=== PATIENT | male | born 1975 | race Caucasian/White ===

== ENCOUNTER 2017-06-05 12:40 | Inpatient (IN) | payer OTHER ==
--- NOTE | 2017-06-05 12:46 | PDOC ---
History of Present Illness - General History Source: Patient Exam Limitations: No Limitations - History of Present Illness Initial Comments: 06/05/17 13:27 The patient is a 41 year old male, with a significant past medical history of asthma, anemia, HTN, IDDM, HLD, depression, gastroparesis, and prostatic hypertrophy who presents to the emergency department with SOB, nausea, vomiting , abdominal pain since this morning. The patient describes his abdominal pain as diffuse and constant. The patient also has a sacral pain that has been constant for months, history of chronic sacral wound.. These symptoms are consistent with previous episodes of DKA. He denies any recent fevers, chills, headache or dizziness.He denies any recent chest pain.. He denies any recent dysuria, frequency, urgency or hematuria. Allergies: NKA Past surgical history: Appendectomy. Social History: Nonsmoker. Denies EtOH use and recreational drug use. <Mitul Zelaya - Last Filed: 06/05/17 13:27> <Danielle Calzada - Last Filed: 06/09/17 12:18> - General Stated Complaint: SOB/DIABETIC Time Seen by Provider: 06/05/17 12:46 Past History <Mitul Zelaya - Last Filed: 06/05/17 13:27> - Past Medical History Anemia: Yes Asthma: No Cancer: No Cardiac Disorders: Yes (HEART MURMUR A CHILD; NO MEDS) CVA: No COPD: No CHF: No Dementia: No Diabetes: Yes (IDDM,insulin pump) GI Disorders: Yes (gastroparesis) Disorders: Yes (indweling urinary catherer, prostatic hypertrophy) HTN: Yes Hypercholesterolemia: Yes Liver Disease: No Psychiatric Problems: Yes (depression) Seizures: No Thyroid Disease: Yes - Surgical History Abdominal Surgery: No Appendectomy: Yes (age 27) Cardiac Surgery: No Cholecystectomy: No Lung Surgery: No Neurologic Surgery: No Orthopedic Surgery: Yes (Trigger finger release, arthroscopy for bone spur L shoulder) - Immunization History Immunization Up to Date: Yes - Suicide/Smoking/Psychosocial Hx Smoking Status: No Smoking History: Never smoked Have you smoked in the past 12 months: No Number of Cigarettes Smoked Daily: 0 Cigars Per Day: 0 Hx Alcohol Use: No Drug/Substance Use Hx: No Substance Use Type: None Hx Substance Use Treatment: No <Danielle Calzada - Last Filed: 06/09/17 12:18> - Past Medical History Allergies/Adverse Reactions: Allergies Allergy/AdvReac Type Severity Reaction Status Date / Time quetiapine fumarate Allergy Unknown hypotension Verified 05/27/16 22:05 [From Seroquel] Home Medications: Ambulatory Orders Insulin Pump Syringe, 3 ml [Paradigm] 1 each MC ASDIR 10/04/13 Pregabalin [Lyrica -] 100 mg PO TID 09/22/14 Levothyroxine [Synthroid -] 112 mcg PO DAILY 05/28/16 Metoclopramide HCl [Reglan -] 10 mg PO BID #60 tablet 05/28/16 Buprenorphine HCl/Naloxone HCl [Suboxone 12 mg-3 mg Sl Film] 1 each SL PRN 06/05 Lubiprostone [Amitiza] 24 mcg PO DAILY 06/05/17 Ondansetron [Ondansetron Odt] 8 mg PO PRN 06/05/17 Sennosides [Senna] 8.6 mg PO PRN 06/05/17 Sertraline HCl 50 mg PO DAILY 06/05/17 Tizanidine HCl 4 mg PO DAILY 06/05/17 Review of Systems - Review of Systems Able to Perform ROS?: Yes Comments:: 06/05/17 13:27 GENERAL/CONSTITUTIONAL: No fever or chills. No weakness. HEAD, EYES, EARS, NOSE AND THROAT: No change in vision. No ear pain or discharge. No sore throat. CARDIOVASCULAR: No chest pain +shortness of breath. RESPIRATORY: No cough, wheezing, or hemoptysis. GASTROINTESTINAL: +nausea, vomiting, abdominal pain. No diarrhea or constipation. GENITOURINARY: No dysuria, frequency, or change in urination. MUSCULOSKELETAL: No joint or muscle swelling or pain. No neck or back pain. SKIN: No rash NEUROLOGIC: No headache, vertigo, loss of consciousness, or change in strength/ sensation. ENDOCRINE: No increased thirst. No abnormal weight change. HEMATOLOGIC/LYMPHATIC: No anemia, easy bleeding, or history of blood clots. ALLERGIC/IMMUNOLOGIC: No hives or skin allergy. <Mitul Zelaya - Last Filed: 06/05/17 13:27> *Physical Exam - Vital Signs Last Vital Signs Temp Pulse Resp BP Pulse Ox 97.9 F 100 H 28 H 135/91 100 06/05/17 13:07 06/05/17 13:07 06/05/17 13:07 06/05/17 13:07 06/05/17 13:07 - Physical Exam Comments: 06/05/17 13:27 GENERAL: Awake, alert, and fully oriented, uncomfortable actively vomiting. HEAD: No signs of trauma EYES: PERRLA, EOMI, sclera anicteric, conjunctiva clear ENT: Auricles normal inspection, hearing grossly normal, nares patent, oropharynx clear without exudates. Moist mucosa NECK: Normal ROM, supple, no lymphadenopathy, JVD, or masses LUNGS: Breath sounds equal, clear to auscultation bilaterally. No wheezes, and no crackles HEART: Regular rate and rhythm, normal S1 and S2, no murmurs, rubs or gallops ABDOMEN: Soft, Diffuse abdominal tenderness , normoactive bowel sounds. No guarding, no rebound. No masses EXTREMITIES: Normal range of motion, no edema. No clubbing or cyanosis. No cords, erythema, or tenderness NEUROLOGICAL: Cranial nerves II through XII grossly intact. Normal speech, normal gait SKIN: 1 cm area of fluctuance over the sacrum. <Mitul Zelaya - Last Filed: 06/05/17 13:27> ED Treatment Course - LABORATORY CBC & Chemistry Diagram: 06/05/17 13:00 06/05/17 13:00 - ADDITIONAL ORDERS Additional order review: Laboratory Results 06/05/17 06/05/17 13:01 13:00 VBG pH 7.51 H POC VBG pCO2 25.9 L POC VBG pO2 39.0 Mixed VBG HCO3 20.4 POC Glucometer [id number] 06/05/17 06/05/17 13:01 13:00 RBC 5.15 MCV 87.5 MCHC 32.5 RDW 13.6 MPV 10.6 Neutrophils % 66.8 D Lymphocytes % 21.2 D Monocytes % 7.2 Eosinophils % 3.6 Basophils % 1.2 POC Glucometer [phone] - Medications Given in the ED: ED Medications Discontinued Medications Generic Name Dose Route Start Last Admin Trade Name Freq PRN Reason Stop Dose Admin Morphine Sulfate 6 mg 06/05/17 12:52 06/05/17 13:06 Morphine Injection - IVPUSH 12/31/17 12:53 6 mg ONCE ONE Administration <Mitul Zelaya - Last Filed: 06/05/17 13:27> - LABORATORY CBC & Chemistry Diagram: 06/08/17 06:00 06/09/17 09:10 <Danielle Calzada - Last Filed: 06/09/17 12:18> Medical Decision Making - Medical Decision Making 06/05/17 15:19 Pt presents to the ED complaining of the acute onset of nausea, vomiting and generalized abdominal pain. History of DM, with prior episodes of gastroparesis and DKA. Denies fevers at home. Patient has a history of chronic pain, for which he has recently been changed from chronic opiates to suboxone. Plan: 1. Abdominal pain: patient is diffusely tender on my exam. Pain is most likely secondary to gastroparesis, but will check CT abdomen to rule out gastroentestinal pathology. Pain persists despite morphine, toradol and IV tylenol. I am hesitant to give more opiates given his gastroparesis, and I have spoken at length to his family about the need to control his pain with non narcotic measures. I have treated him with ativan, and he seems to have some improvement. 2. DM: patient is hyperglycemic in the Ed. Labs show mild anion gap and trace acetone, but no acidosis on VBG. Most likely secondary to dehydration---will treat with IV hydration and recheck labs. 3. Nausea and vomiting: likely secondary to gastoparesis, but pending CT scan to rule out other causes. Will treat with zofran, reglan and IV hydration. 4. Elevated lactate: may be secondary to dehydration---will recheck after IV hydration. 06/05/17 15:48 5. Sacral abscess: I and D performed in the ED. No signs of surrounding infection. <Danielle Calzada - Last Filed: 06/09/17 12:18> *DC/Admit/Observation/Transfer - Attestations Scribe Attestion: 06/05/17 13:27 Documentation prepared by Mitul Zelaya, acting as chief medical physicist for Danielle Calzada MD. <Mitul Zelaya - Last Filed: 06/05/17 13:27> - Discharge Dispostion Admit: Yes <Danielle Calzada - Last Filed: 06/09/17 12:18> Diagnosis at time of Disposition: IDDM (insulin dependent diabetes mellitus), Diabetic gastroparesis, Persistent vomiting
[2017-06-05] MEDS ORDERED: morphine CARPU-JECT 2 MG/1 ML DISP.SYRIN IVPUSH ONE (12:52)
[2017-06-05] MEDS ORDERED: morphine CARPU-JECT 10 MG/1 ML DISP.SYRIN ONE (12:56)
[2017-06-05] MEDS ORDERED: ONDANSETRON 4 MG/2 ML VIAL ONE (12:56)
[2017-06-05 13:10] LABS: BASO % 1.2 % (0-2.0); EOS % 3.6 % (0-4.5); HEMOGLOBIN 14.6 GM/dL (11.7-16.9); LYMPH % 21.2 % (8-40); MCH 28.4 pg (25.7-33.7); MCHC 32.5 g/dl (32.0-35.9); MEAN CELL VOLUME 87.5 fl (80-96); MEAN PLT VOLUME 10.6 fl (7.5-11.1); MONO % 7.2 % (3.8-10.2); NEUT % 66.8 % (42.8-82.8); PLATELET COUNT 188 K/MM3 (134-434); RBC 5.15 M/mm3 (4.00-5.60); RDW 13.6 % (11.9-15.9); WHITE BLOOD COUNT 5.8 K/mm3 (4.0-10.0)
[2017-06-05 13:11] LABS: VENOUS PC02 25.9 mmHg (38-52); VENOUS PH 7.51 (7.32-7.42)
[2017-06-05 13:21] VITALS: BMI 23.1
[2017-06-05] MEDS ORDERED: ACETAMINOPHEN 1000 MG/100 ML VIAL (NON FORMULARY) IVPB ONE ×2 (13:25→18:29)
[2017-06-05] MEDS ORDERED: METOCLOPRAMIDE HCL INJECTION 10 MG/2 ML VIAL IVPUSH ONE (13:25)
[2017-06-05] MEDS ORDERED: ACETAMINOPHEN INJECTION 100 ML IVPB ONE (13:27)
[2017-06-05] MEDS ORDERED: METOCLOPRAMIDE HCL INJECTION 10 MG/2 ML VIAL ONE ×2 (13:27→18:33)
[2017-06-05] MEDS ORDERED: LIDOCAINE 1%/EPI 1:100000 (20 ML MULTI DOSE VIAL) INF ONE (13:30)
[2017-06-05 13:31] LABS: ALBUMIN 4.1 g/dl (3.4-5.0); ANION GAP 18 (8-16); BILIRUBIN,TOTAL 0.7 mg/dL (0.2-1.0); BLOOD UREA NITROGEN 12 mg/dL (7-18); CALCIUM 9.5 mg/dL (8.5-10.1); CHLORIDE 101 mmol/L (98-107); CO2 20 mmol/L (21-32); CREATININE 1.2 mg/dL (0.7-1.3); POTASSIUM 3.7 mmol/L (3.5-5.1); SGOT/AST 13 U/L (15-37); SGPT/ALT 25 U/L (12-78); SODIUM 139 mmol/L (136-145); TOT PROT 7.7 g/dl (6.4-8.2)
[2017-06-05 13:32] LABS: ALK PHOS 115 U/L (45-117)
[2017-06-05 13:36] LABS: GLUCOSE,RANDOM 320 mg/dL (74-106)
[2017-06-05] MEDS ORDERED: LIDOCAINE 1%/EPI 1:100000 (20 ML MULTI DOSE VIAL) ONE (13:36)
[2017-06-05 13:37] LABS: ACETONE SERUM POSITIVE SMALL 1+ (NEGATIVE)
[2017-06-05] MEDS ORDERED: KETOROLAC TROMETHAMINE 30 MG/1 ML VIAL IVPUSH ONE (14:02)
[2017-06-05] MEDS ORDERED: KETOROLAC TROMETHAMINE 30 MG/1 ML VIAL ONE (14:05)
[2017-06-05] MEDS ORDERED: SODIUM CHLORIDE 0.9% 500 ML INFUS.BAG IV ONE (14:26)
--- NOTE | 2017-06-05 14:45 | EKG ---
Test Reason : Blood Pressure : / mmHG Vent. Rate : 092 BPM Atrial Rate : 092 BPM P-R Int : 162 ms QRS Dur : 092 ms QT Int : 392 ms P-R-T Axes : 070 074 044 degrees QTc Int : 484 ms NORMAL SINUS RHYTHM PROLONGED QT ABNORMAL ECG WHEN COMPARED WITH ECG OF 02-DEC-2014 15:48, NO SIGNIFICANT CHANGE WAS FOUND CLINICAL CORRELATION IS RECOMMENDED Confirmed by ALICE DUPONT, CECILIA ([id number]) on 06/05/2017 2:45:11 PM Referred By: Confirmed By:CECILIA JENKINS MD
[2017-06-05] MEDS ORDERED: INSULIN REGULAR HUMAN 100 UNITS/ML *VIAL IVPUSH ONE (16:10)
[2017-06-05] MEDS ORDERED: INSULIN REGULAR HUMAN 100 UNITS/ML *VIAL ONE (16:17)
[2017-06-05] MEDS ORDERED: SODIUM CHLORIDE 1,000 ML IV STA (17:22)
--- NOTE | 2017-06-05 17:48 | HP ---
CHIEF COMPLAINT: nausea, vomiting, and abdominal pain PCP: Dr. Grewal HISTORY OF PRESENT ILLNESS: This is a 41 year old male with PMHx of asthma, anemia, IDDM, hyperlipidemia, HTN, depression, gastroparesis, prostatic hypertrophy who presented to the ED with nausea, vomiting, and abdominal pain since this AM. He states his partner had a stomach virus 1 week ago with vomiting as well. The patient reports a history of gastroparesis and he used marijuana last night. He states his vomiting is non bloody. He denies any diarrhea. He states he has a humalog insulin pump. The patient denies any fever, chills, chest pain, dizziness, headache. Patient was also noted to have a sacral abscess that was I&D in the ED with no surrounding evidence of infection ER course was notable for: (1) Lactic acid 2.9 (2) WBC 5.9->7.3 (3) Anion gap 18, glucose 320, co2 20 (4) CTAP with no acute pathology Recent Travel: denies PAST MEDICAL HISTORY: as above PAST SURGICAL HISTORY: Social History: Smoking: denies Alcohol: denies Drugs: Marijuana, last use last night Family History: Allergies quetiapine fumarate [From Seroquel] Allergy (Unknown, Verified 05/27/16 22:05) hypotension HOME MEDICATIONS: Home Medications Medication Instructions Recorded Insulin Pump Syringe, 3 ml 1 each ASDIR 10/04/13 [Paradigm] Pregabalin [Lyrica -] 100 mg PO TID 09/22/14 Levothyroxine [Synthroid -] 112 mcg PO DAILY 05/28/16 Metoclopramide HCl [Reglan -] 10 mg PO BID #60 tablet 05/28/16 Buprenorphine HCl/Naloxone HCl 1 each SL PRN 06/05/17 [Suboxone 12 mg-3 mg Sl Film] Lubiprostone [Amitiza] 24 mcg PO DAILY 06/05/17 Ondansetron [Ondansetron Odt] 8 mg PO PRN 06/05/17 Sennosides [Senna] 8.6 mg PO PRN 06/05/17 Sertraline HCl 50 mg PO DAILY 06/05/17 Tizanidine HCl 4 mg PO DAILY 06/05/17 REVIEW OF SYSTEMS CONSTITUTIONAL: Absent: fever, chills, diaphoresis, generalized weakness, malaise, loss of appetite, weight change HEENT: Absent: rhinorrhea, nasal congestion, throat pain, throat swelling, difficulty swallowing, mouth swelling, ear pain, eye pain, visual changes CARDIOVASCULAR: Absent: chest pain, syncope, palpitations, irregular heart rate , lightheadedness, peripheral edema RESPIRATORY: Absent: cough, shortness of breath, dyspnea with exertion, orthopnea, wheezing, stridor, hemoptysis GASTROINTESTINAL: Nausea, vomiting, abdominal pain since this morning. Absent: abdominal distension, diarrhea, constipation, melena, hematochezia GENITOURINARY: Absent: dysuria, frequency, urgency, hesitancy, hematuria, flank pain, genital pain MUSCULOSKELETAL: Absent: myalgia, arthralgia, joint swelling, back pain, neck pain SKIN: Absent: rash, itching, pallor HEMATOLOGIC/IMMUNOLOGIC: Absent: easy bleeding, easy bruising, lymphadenopathy, frequent infections ENDOCRINE:Absent: unexplained weight gain, unexplained weight loss, heat intolerance, cold intolerance NEUROLOGIC: Absent: headache, focal weakness or paresthesias, dizziness, unsteady gait, seizure, mental status changes, bladder or bowel incontinence PSYCHIATRIC: Absent: anxiety, depression, suicidal or homicidal ideation, hallucinations. PHYSICAL EXAMINATION Vital Signs - 24 hr 06/05/17 13:07 Temperature 97.9 F Pulse Rate 100 H Respiratory 28 H Rate Blood Pressure 135/91 O2 Sat by Pulse 100 Oximetry (%) GENERAL: Appears to be in mild distress, rolling around in the bed, clutching his stomach. Awake, alert, and fully oriented HEAD: Normal with no signs of trauma. EYES: Pupils equal, round and reactive to light, sclera anicteric, conjunctiva clear. No lid lag. EARS, NOSE, THROAT: Dry mucous membranes. NECK: Normal range of motion, supple without lymphadenopathy, or masses. LUNGS: Breath sounds equal, clear to auscultation bilaterally HEART: Regular rate and rhythm, normal S1 and S2 ABDOMEN: Deferred, patient refused MUSCULOSKELETAL: Normal range of motion at all joints. No bony deformities or tenderness. No CVA tenderness. UPPER EXTREMITIES: 2+ pulses, warm, well-perfused. No cyanosis. No clubbing. No peripheral edema. LOWER EXTREMITIES: 2+ pulses, warm, well-perfused. No calf tenderness. No peripheral edema. NEUROLOGICAL: Whispered speech PSYCHIATRIC: Cooperative. Poor eye contact. SKIN: Warm, dry, normal turgor, no rashes or lesions noted, normal capillary refill. Laboratory Results - last 24 hr 06/05/17 06/05/17 06/05/17 13:00 13:00 13:00 WBC 5.8 D RBC 5.15 Hgb 14.6 Hct 45.0 MCV 87.5 MCH 28.4 MCHC 32.5 RDW 13.6 Plt Count 188 D MPV 10.6 Neutrophils % 66.8 D Lymphocytes % 21.2 D Monocytes % 7.2 Eosinophils % 3.6 Basophils % 1.2 VBG pH 7.51 H POC VBG pCO2 25.9 L POC VBG pO2 39.0 Mixed VBG HCO3 20.4 Sodium 139 Potassium 3.7 Chloride 101 Carbon Dioxide 20 L D Anion Gap 18 H BUN 12 D Creatinine 1.2 Creat Clearance w eGFR > 60 POC Glucometer Random Glucose 320 H* D Lactic Acid Calcium 9.5 Total Bilirubin 0.7 AST 13 L D ALT 25 D Alkaline Phosphatase 115 D Total Protein 7.7 Albumin 4.1 Acetone, Qual Positive small 1+ 06/05/17 06/05/17 13:00 13:01 WBC RBC Hgb Hct MCV MCH MCHC RDW Plt Count MPV Neutrophils % Lymphocytes % Monocytes % Eosinophils % Basophils % VBG pH POC VBG pCO2 POC VBG pO2 Mixed VBG HCO3 Sodium Potassium Chloride Carbon Dioxide Anion Gap BUN Creatinine Creat Clearance w eGFR POC Glucometer [phone] Random Glucose Lactic Acid 2.9 H* Calcium Total Bilirubin AST ALT Alkaline Phosphatase Total Protein Albumin Acetone, Qual Assessment: This is a 41 year old male with PMHx of asthma, anemia, IDDM, hyperlipidemia, HTN, depression, gastroparesis, prostatic hypertrophy who presented to the ED with nausea, vomiting, and abdominal pain since this AM. Plan: 1) GI: Gastroparesis - Possible marijuana induced - Continue Reglan - Continue Toradol and Tylenol for pain - Avoid narcotics - Educated on the importance of abstinence from marijuana 2) Elevated lactic acid level - Likely 2/2 dehydration, vomiting - Continue IV fluids - Monitor repeat level - F/u UA, urine culture, blood cultures - Hold antibiotics for now and start based on cultures 3) Anion gap, hyperglycemia, serum acetones - Received IV fluids in the ED - Anion gap and hyperglycemia resolved on repeat labs - Continue IV fluids - Diet as tolerated: small frequent meals - F/u endocrine consult 4) IDDM - Patient has insulin pump - Per Dr. Lacy, patient can use insulin pump as prescribed by Dr. Grewal - Asked patient what insulin pump dosage is of humalog, he is refusing to speak , will attempt to obtain pharmacy info to ask - Continue to monitor blood sugar 5) Asthma - Stable - Albuterol prn 6) F/E/N: - Diabetic diet - Monitor electrolytes 7) Prophylaxis: - SCDs bilaterally - OOB ambulating 8) Dispo: - Once condition improves CODE STATUS: FULL CODE Visit type - Emergency Visit Emergency Visit: Yes Care time: The patient presented to the Emergency Department on the above date and was hospitalized for further evaluation of their emergent condition. - New Patient This patient is new to me today: Yes Date on this admission: 06/05/17 - Critical Care Critical Care patient: No
[2017-06-05 17:58] LABS: MEAN CELL VOLUME 86.7 fl (80-96); RDW 13.4 % (11.9-15.9); WHITE BLOOD COUNT 7.3 K/mm3 (4.0-10.0)
[2017-06-05 18:06] LABS: BASO % 0.5 % (0-2.0); EOS % 0.3 % (0-4.5); HEMATOCRIT 38.3 % (35.4-49); LYMPH % 7.5 % (8-40); MCH 29.4 pg (25.7-33.7); MCHC 33.9 g/dl (32.0-35.9); MEAN PLT VOLUME 10.3 fl (7.5-11.1); MONO % 5.7 % (3.8-10.2); PLATELET COUNT 191 K/MM3 (134-434); RBC 4.42 M/mm3 (4.00-5.60)
[2017-06-05 18:27] LABS: ALBUMIN 3.6 g/dl (3.4-5.0); ANION GAP 10 (8-16); BILIRUBIN,TOTAL 0.5 mg/dL (0.2-1.0); BLOOD UREA NITROGEN 11 mg/dL (7-18); CALCIUM 8.4 mg/dL (8.5-10.1); CHLORIDE 107 mmol/L (98-107); CO2 25 mmol/L (21-32); CREATININE 0.9 mg/dL (0.7-1.3); GLUCOSE,RANDOM 84 mg/dL (74-106); POTASSIUM 3.7 mmol/L (3.5-5.1); SGOT/AST 8 U/L (15-37); SGPT/ALT 21 U/L (12-78); SODIUM 142 mmol/L (136-145); TOT PROT 6.7 g/dl (6.4-8.2)
[2017-06-05 18:28] LABS: ALK PHOS 93 U/L (45-117)
[2017-06-05] MEDS: METOCLOPRAMIDE HCL INJECTION 10 MG/2 ML VIAL IVPUSH PRN (18:33)
[2017-06-05] MEDS: SODIUM CHLORIDE 1,000 ML IV SCH (18:33)
[2017-06-05] MEDS ORDERED: ALBUTEROL SO4 0.083% IH SOL 2.5 MG/3 ML VIAL.NEB. NEB PRN (18:37)
--- NOTE | 2017-06-05 19:04 | PDOC ---
*Physical Exam - Vital Signs Last Vital Signs Temp Pulse Resp BP Pulse Ox 98.3 F 80 18 120/65 99 06/05/17 17:55 06/05/17 17:55 06/05/17 17:55 06/05/17 17:55 06/05/17 17:55 ED Treatment Course - LABORATORY CBC & Chemistry Diagram: 06/05/17 17:30 06/05/17 17:30 - ADDITIONAL ORDERS Additional order review: Laboratory Results 06/05/17 06/05/17 06/05/17 17:30 17:30 13:01 VBG pH POC VBG pCO2 POC VBG pO2 Mixed VBG HCO3 Sodium 142 Potassium 3.7 Chloride 107 Carbon Dioxide 25 D Anion Gap 10 BUN 11 Creatinine 0.9 D Creat Clearance w eGFR > 60 POC Glucometer [phone] Random Glucose 84 D Lactic Acid 1.7 Calcium 8.4 L Total Bilirubin 0.5 D AST 8 L D ALT 21 Alkaline Phosphatase 93 Total Protein 6.7 Albumin 3.6 Acetone, Qual 06/05/17 06/05/17 06/05/17 13:00 13:00 13:00 VBG pH 7.51 H POC VBG pCO2 25.9 L POC VBG pO2 39.0 Mixed VBG HCO3 20.4 Sodium 139 Potassium 3.7 Chloride 101 Carbon Dioxide 20 L D Anion Gap 18 H BUN 12 D Creatinine 1.2 Creat Clearance w eGFR > 60 POC Glucometer Random Glucose 320 H* D Lactic Acid 2.9 H* Calcium 9.5 Total Bilirubin 0.7 AST 13 L D ALT 25 D Alkaline Phosphatase 115 D Total Protein 7.7 Albumin 4.1 Acetone, Qual Positive small 1+ 06/05/17 06/05/17 06/05/17 17:30 13:01 13:00 RBC 4.42 5.15 MCV 86.7 87.5 MCHC 33.9 32.5 RDW 13.4 13.6 MPV 10.3 10.6 Neutrophils % 86.0 H D 66.8 D Lymphocytes % 7.5 L D 21.2 D Monocytes % 5.7 7.2 Eosinophils % 0.3 D 3.6 Basophils % 0.5 1.2 POC Glucometer [phone] - Medications Given in the ED: ED Medications Discontinued Medications Generic Name Dose Route Start Last Admin Trade Name Freq PRN Reason Stop Dose Admin Acetaminophen 1,000 mg 06/05/17 13:25 06/05/17 13:34 Ofirmev Injection - IVPB 06/05/17 13:26 1,000 mg ONCE ONE Administration Acetaminophen 1,000 mg 06/05/17 18:29 06/05/17 18:33 Ofirmev Injection - IVPB 06/05/17 18:30 1,000 mg ONCE ONE Administration Sodium Chloride 1,000 mls @ 1,000 mls/hr 06/05/17 17:22 06/05/17 17:50 Normal Saline - IV 06/05/17 18:21 1,000 mls/hr ASDIR STA Administration Insulin Human Regular 6 units 06/05/17 16:10 06/05/17 16:26 Novolin R Vial *For Ivpush Or Iv Drip Only* IVPUSH 06/05/17 16:11 6 units ONCE ONE Administration Ketorolac Tromethamine 30 mg 06/05/17 14:02 06/05/17 14:14 Toradol Injection - IVPUSH 06/05/17 14:03 30 mg ONCE ONE Administration Lidocaine/Epinephrine 10 ml 06/05/17 13:30 06/05/17 13:38 Xylocaine 1%-Epi 1:100,000 INF 06/05/17 13:31 Not Given ONCE ONE Lorazepam 1 mg 06/05/17 14:36 06/05/17 14:50 Ativan Injection - IVPUSH 06/05/17 14:37 1 mg ONCE ONE Administration Lorazepam 1 mg 06/05/17 16:12 06/05/17 16:26 Ativan Injection - IVPUSH 06/05/17 16:13 1 mg ONCE ONE Administration Metoclopramide HCl 10 mg 06/05/17 13:25 06/05/17 13:35 Reglan Injection - IVPUSH 06/05/17 13:26 10 mg ONCE ONE Administration Morphine Sulfate 6 mg 06/05/17 12:52 06/05/17 13:06 Morphine Injection - IVPUSH 06/05/17 12:53 6 mg ONCE ONE Administration Sodium Chloride 1,000 ml 06/05/17 14:26 06/05/17 14:50 Normal Saline - IV 06/05/17 14:27 1,000 ml ONCE ONE Administration *DC/Admit/Observation/Transfer Diagnosis at time of Disposition: IDDM (insulin dependent diabetes mellitus), Diabetic gastroparesis, Persistent vomiting - Discharge Dispostion Admit: Yes - Referrals Referrals: Augustus Grewal MD [Primary Care Provider] - - Patient Instructions - Post Discharge Activity
[2017-06-05] MEDS ORDERED: PREGABALIN 100 MG CAPSULE PO SCH (22:00)
[2017-06-05] MEDS ORDERED: METOCLOPRAMIDE HCL 10 MG TABLET (FP) PO SCH (22:00)
[2017-06-06] MEDS: KETOROLAC TROMETHAMINE 30 MG/1 ML VIAL IVPUSH SCH ×3 (02:31→17:28)
[2017-06-06 03:36] LABS: URINE APPEARANCE CLEAR; URINE BILIRUBIN NEGATIVE (NEGATIVE); URINE BLOOD NEGATIVE (NEGATIVE); URINE COLOR LTYELLOW; URINE GLUCOSE (UA) 2+ (NEGATIVE); URINE KETONE 2+ (NEGATIVE); URINE LEUK ESTERASE NEGATIVE (NEGATIVE); URINE NITRITE NEGATIVE (NEGATIVE); URINE PROTEIN NEGATIVE (NEGATIVE); URINE UROBILINOGEN NEGATIVE mg/dL (0.2-1.0)
[2017-06-06] MEDS: PREGABALIN 50 MG CAPSULE PO SCH ×3 (06:41→22:38)
[2017-06-06] MEDS: LEVOTHYROXINE NA 112 MCG TABLET (FP) PO SCH (06:41)
[2017-06-06] MEDS: SODIUM CHLORIDE 1,000 ML IV SCH ×2 (06:42→20:24)
[2017-06-06 08:02] LABS: HEMATOCRIT 35.4 % (35.4-49); HEMOGLOBIN 11.6 GM/dL (11.7-16.9); MCH 29.3 pg (25.7-33.7); MCHC 32.7 g/dl (32.0-35.9); MEAN CELL VOLUME 89.4 fl (80-96); MEAN PLT VOLUME 11.3 fl (7.5-11.1); PLATELET COUNT 158 K/MM3 (134-434); RBC 3.96 M/mm3 (4.00-5.60); RDW 13.8 % (11.9-15.9); WHITE BLOOD COUNT 6.8 K/mm3 (4.0-10.0)
[2017-06-06 08:22] LABS: ANION GAP 14 (8-16); BLOOD UREA NITROGEN 9 mg/dL (7-18); CALCIUM 8.6 mg/dL (8.5-10.1); CHLORIDE 107 mmol/L (98-107); CO2 21 mmol/L (21-32); CREATININE 0.9 mg/dL (0.7-1.3); GLUCOSE,RANDOM 210 mg/dL (74-106); MAGNESIUM 1.8 mg/dL (1.8-2.4); PHOSPHOROUS 4.2 mg/dL (2.5-4.9); POTASSIUM 4.4 mmol/L (3.5-5.1); SGOT/AST 10 U/L (15-37); SGPT/ALT 17 U/L (12-78); SODIUM 142 mmol/L (136-145)
[2017-06-06 08:24] LABS: ALK PHOS 78 U/L (45-117); BILIRUBIN,TOTAL 0.6 mg/dL (0.2-1.0); TOT PROT 5.7 g/dl (6.4-8.2)
[2017-06-06 09:36] LABS: PLATELET ESTIMATE ADEQUATE
[2017-06-06] MEDS: LUBIPROSTONE 24 MCG CAPSULE PO SCH (10:09)
[2017-06-06] MEDS: SERTRALINE HCL 50 MG TABLET (FP) PO SCH (10:09)
--- NOTE | 2017-06-06 12:52 | PN ---
Progress Note, Physician - Current Medication List Current Medications: Active Medications Albuterol Sulfate (Ventolin 0.083% Nebulizer Soln -) 1 amp NEB Q6H PRN PRN Reason: SHORT OF BREATH/WHEEZING Sodium Chloride (Normal Saline -) 1,000 mls @ 125 mls/hr IV ASDIR [facility] Last Admin: 06/06/17 06:42 Dose: 125 mls/hr Ketorolac Tromethamine (Toradol Injection -) 30 mg IVPUSH Q8H-IV [facility] Stop: 06/06/17 18:01 Last Admin: 06/06/17 10:10 Dose: 30 mg Levothyroxine Sodium (Synthroid -) 112 mcg PO DAILY@0700 [facility] Last Admin: 06/06/17 06:41 Dose: 112 mcg Metoclopramide HCl (Reglan Injection -) 10 mg IVPUSH Q8H PRN PRN Reason: NAUSEA AND/OR VOMITING Last Admin: 06/05/17 18:33 Dose: 10 mg Lubiprostone 24 Mcg (Capsule) 24 mcg PO DAILY [facility] Last Admin: 06/06/17 10:09 Dose: 24 mcg Pregabalin (Lyrica -) 100 mg PO TID [facility] Last Admin: 06/06/17 06:41 Dose: 100 mg Sertraline HCl (Zoloft -) 50 mg PO DAILY [facility] Last Admin: 06/06/17 10:09 Dose: 50 mg - Objective Vital Signs: Vital Signs Temperature 98.2 F 06/06/17 06:38 Pulse Rate 85 06/06/17 06:38 Respiratory Rate 20 06/06/17 06:38 Blood Pressure 110/55 06/06/17 06:38 O2 Sat by Pulse Oximetry (%) 98 06/06/17 02:39 Labs: CBC, BMP 06/06/17 05:35 06/06/17 05:35 Problem List - Problems (1) Diabetic gastroparesis Assessment/Plan: - Possible marijuana induced - Continue Reglan - Continue Toradol and Tylenol for pain - Avoid narcotics - Educated on the importance of abstinence from marijuana Code(s): E11.43 - TYPE 2 DIABETES W DIABETIC AUTONOMIC (POLY)NEUROPATHY; K31.84 - GASTROPARESIS (2) IDDM (insulin dependent diabetes mellitus) Assessment/Plan: - Received IV fluids in the ED - Anion gap and hyperglycemia resolved on repeat labs - Continue IV fluids - Diet as tolerated: small frequent meals - F/u endocrine consult - Patient has insulin pump - Per Dr. Lacy, patient can use insulin pump as prescribed by Dr. Grewal - Asked patient what insulin pump dosage is of humalog, he is refusing to speak , will attempt to obtain pharmacy info to ask - Continue to monitor blood sugar Code(s): E11.9 - TYPE 2 DIABETES MELLITUS WITHOUT COMPLICATIONS; Z79.4 - HEALTH PRACTICE MANAGER (CURRENT) USE OF INSULIN (3) Lactic acid blood increased Assessment/Plan: 2) Elevated lactic acid level - Likely 2/2 dehydration, vomiting - Continue IV fluids - Monitor repeat level - F/u UA, urine culture, blood cultures - Hold antibiotics for now and start based on cultures - Laboratory Tests 06/05/17 06/05/17 13:00 17:30 Lactic Acid 2.9 H* 1.7 Code(s): R79.89 - OTHER SPECIFIED ABNORMAL FINDINGS OF BLOOD CHEMISTRY
[2017-06-06] MEDS: METOCLOPRAMIDE HCL INJECTION 10 MG/2 ML VIAL IVPUSH PRN (13:29)
--- NOTE | 2017-06-06 14:23 | CONSULT ---
Consult Consult Specialty:: Endocrinololgy coverage for Dr Grewal Referred by:: Dr Acosta Reason for Consultation:: Uncontrolled blood sugar in pt on Insulin pump - History of Present Illness Chief Complaint: Nausea vomiting History of Present Illness: This is a 41 year old male with PMHx of asthma, anemia, T1DM diagnosed at age 4 , no recent admission for hypo or hyperglycemia, hyperlipidemia, HTN, depression , gastroparesis, prostatic hypertrophy who presented to the ED with nausea, vomiting, and abdominal pain. He states his partner had a stomach virus 1 week ago with vomiting as well. Denies any visual symptoms but gives h/o laser rx to both eyes for retinopathy. No paresthesia of feet. Saw ophthalmology a few years ago. The patient reports a history of gastroparesis and he used marijuana last night. He states his vomiting is non bloody. He denies any diarrhea. He states he is on insulin pump and is using the pattern with the lowest Insulin dosing. The patient denies any fever, chills, chest pain, dizziness, headache. Patient was also noted to have a sacral abscess that was I&D in the ED. Pt found to have Anion gap 18, glucose 320, co2 20 in the ED and CT abd pelvis showed no acute pathology. Repeat labs showed normal A gap. 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: Peripheral Neuropathy Cardio/Vascular: Yes: HTN Gastrointestinal: Yes: Gastritis Musculoskeletal: Yes: Chronic low back pain Endocrine: Yes: Diabetes Mellitus - Alcohol/Substance Use Hx Alcohol Use: No - Smoking History Smoking history: Never smoked Have you smoked in the past 12 months: No Aproximately how many cigarettes per day: 0 Home Medications - Allergies Allergies/Adverse Reactions: Allergies Allergy/AdvReac Type Severity Reaction Status Date / Time quetiapine fumarate Allergy Unknown hypotension Verified 05/27/16 22:05 [From Seroquel] - Home Medications Home Medications: Ambulatory Orders Insulin Pump Syringe, 3 ml [Paradigm] 1 each MC ASDIR 10/04/13 Pregabalin [Lyrica -] 100 mg PO TID 09/22/14 Levothyroxine [Synthroid -] 112 mcg PO DAILY 05/28/16 Metoclopramide HCl [Reglan -] 10 mg PO BID #60 tablet 05/28/16 Buprenorphine HCl/Naloxone HCl [Suboxone 12 mg-3 mg Sl Film] 1 each SL PRN 06/05 Lubiprostone [Amitiza] 24 mcg PO DAILY 06/05/17 Ondansetron [Ondansetron Odt] 8 mg PO PRN 06/05/17 Sennosides [Senna] 8.6 mg PO PRN 06/05/17 Sertraline HCl 50 mg PO DAILY 06/05/17 Tizanidine HCl 4 mg PO DAILY 06/05/17 Family Disease History - Family Disease History Other Family History: Aunts have type 2 DM Review of Systems - Review of Systems Constitutional: reports: Loss of Appetite, Malaise Eyes: reports: No Symptoms HENT: reports: No Symptoms Neck: reports: No Symptoms Cardiovascular: reports: No Symptoms Respiratory: reports: No Symptoms Gastrointestinal: reports: Nausea Genitourinary: reports: No Symptoms Breasts: reports: No Symptoms Reported Neurological: reports: No Symptoms Physical Exam Vital Signs: Vital Signs Temperature 98.2 F 06/06/17 06:38 Pulse Rate 85 06/06/17 06:38 Respiratory Rate 20 06/06/17 06:38 Blood Pressure 110/55 06/06/17 06:38 O2 Sat by Pulse Oximetry (%) 98 06/06/17 02:39 Constitutional: Yes: No Distress, Calm Eyes: Yes: Conjunctiva Clear, EOM Intact HENT: Yes: Atraumatic, Normocephalic Neck: Yes: Supple, Trachea Midline Cardiovascular: Yes: Regular Rate and Rhythm Respiratory: Yes: Regular, CTA Bilaterally Gastrointestinal: Yes: Normal Bowel Sounds, Soft Musculoskeletal: Yes: Other (Dresssing over sacral area) Extremities: Yes: WNL Edema: No Labs: CBC, BMP 06/06/17 05:35 06/06/17 05:35 Imaging - Results Cat Scan: Report Reviewed Assessment/Plan AP ABd Pain with NV Gastroparesis T1DM Hypothyroidism LT4 112mcg QD IV hyration diet as tolerated Continue Insulin pump at current setting: Basal rate: 12 AM 0.7 12 pm 0.6 6 P.M. 1.0, Carb Ratio 1: 12 Sensitivity 1:45 Will f/u TSH in AM
[2017-06-06] MEDS ORDERED: PT OWN MED DRAWER 7, Y5N ONE ×2 (18:26→18:29)
--- NOTE | 2017-06-06 19:22 | CON.GI ---
Consult Consult Specialty:: GI Referred by:: Karla/Sascha Reason for Consultation:: gastroparesis - History of Present Illness History of Present Illness: 41 year old male with PMHx of asthma, anemia, T1DM diagnosed at age 4, no recent admission for hypo or hyperglycemia, hyperlipidemia, HTN, depression, gastroparesis, prostatic hypertrophy who presented to the ED with nausea, vomiting, and abdominal pain. He states his partner had a stomach virus 1 week ago with vomiting as well. Denies any visual symptoms but gives h/o laser rx to both eyes for retinopathy. No paresthesia of feet. Saw ophthalmology a few years ago. The patient reports a history of gastroparesis and he used marijuana last night. He states his vomiting is non bloody. He denies any diarrhea. He states he is on insulin pump and is using the pattern with the lowest Insulin dosing. The patient denies any fever, chills, chest pain, dizziness, headache. Patient was also noted to have a sacral abscess that was I&D in the ED. Pt found to have Anion gap 18, glucose 320, co2 20 in the ED and CT abd pelvis showed no acute pathology. Repeat labs showed normal A gap. S/p incision and drainage of a sacral abscess which recurred. [place], vomiting and abdominal pain improved this evening. 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 Cardio/Vascular: Yes: HTN Gastrointestinal: Yes: Gastritis Musculoskeletal: Yes: Chronic low back pain Endocrine: Yes: Diabetes Mellitus - Alcohol/Substance Use Hx Alcohol Use: No - Smoking History Smoking history: Never smoked Have you smoked in the past 12 months: No Aproximately how many cigarettes per day: 0 Home Medications - Allergies Allergies/Adverse Reactions: Allergies Allergy/AdvReac Type Severity Reaction Status Date / Time quetiapine fumarate Allergy Unknown hypotension Verified 05/27/16 22:05 [From Seroquel] - Home Medications Home Medications: Ambulatory Orders Insulin Pump Syringe, 3 ml [Paradigm] 1 each MC ASDIR 10/04/13 Pregabalin [Lyrica -] 100 mg PO TID 09/22/14 Levothyroxine [Synthroid -] 112 mcg PO DAILY 05/28/16 Metoclopramide HCl [Reglan -] 10 mg PO BID #60 tablet 05/28/16 Buprenorphine HCl/Naloxone HCl [Suboxone 12 mg-3 mg Sl Film] 1 each SL PRN 06/05 Lubiprostone [Amitiza] 24 mcg PO DAILY 06/05/17 Ondansetron [Ondansetron Odt] 8 mg PO PRN 06/05/17 Sennosides [Senna] 8.6 mg PO PRN 06/05/17 Sertraline HCl 50 mg PO DAILY 06/05/17 Tizanidine HCl 4 mg PO DAILY 06/05/17 Family Disease History - Family Disease History Other Family History: Aunts have type 2 DM Review of Systems - Review of Systems Constitutional: denies: Fever Eyes: denies: Blind Spots HENT: denies: Difficult Swallowing Neck: denies: Decreased ROM Cardiovascular: denies: Chest Pain Respiratory: denies: Cough Gastrointestinal: reports: Abdominal Pain, Nausea, Vomiting. denies: Bloating, Constipation, Diarrhea, Dysphagia, Indigestion, Melena, Vomiting Blood Physical Exam-GI Vital Signs: Vital Signs Temperature 98.2 F 06/06/17 17:25 Pulse Rate 85 06/06/17 17:25 Respiratory Rate 20 06/06/17 17:25 Blood Pressure 127/94 06/06/17 17:25 O2 Sat by Pulse Oximetry (%) 98 06/06/17 10:00 Constitutional: Yes: Well Nourished Eyes: Yes: Conjunctiva Clear HENT: Yes: Atraumatic Neck: Yes: Supple Cardiovascular: Yes: Regular Rate and Rhythm Respiratory: Yes: CTA Bilaterally ...Palpate: Yes: Soft. No: Firm/Rigid, Guarding, Hepatomegaly, Mass, Pulsatile Mass, Splenomegaly, Tenderness ...Rectal Exam: Yes: Other (\sacral abscess with open wound) Labs: CBC, BMP 06/06/17 05:35 06/06/17 05:35 Imaging - Results Cat Scan: Report Reviewed Problem List - Problems (1) Diabetic gastroparesis Assessment/Plan: R> continue IV hydration, patient takes Reglan 5mg 30 min ac as needed as an outpatient. He was made aware of extrapyramidal side effects and was instructed to take it sparingly start on Pantoprazole 40mg daily then switch to H2 elli in one month Code(s): E11.43 - TYPE 2 DIABETES W DIABETIC AUTONOMIC (POLY)NEUROPATHY; K31.84 - GASTROPARESIS (2) Abscess of sacrum Assessment/Plan: R> will need ssurgical consult will possibly need packing and possibly evaluate for hyperbaric oxygen treatment IV unasyn Code(s): M46.28 - OSTEOMYELITIS OF VERTEBRA, SACRAL AND SACROCOCCYGEAL REGION
[2017-06-06] MEDS: METOCLOPRAMIDE HCL INJECTION 10 MG/2 ML VIAL IVPB SCH (19:44)
[2017-06-06] MEDS: ONDANSETRON 4 MG/2 ML VIAL IVPUSH SCH ×2 (19:45→22:39)
[2017-06-06] MEDS: PANTOPRAZOLE 40 MG TABLET (FP) PO SCH (21:00)
[2017-06-06] MEDS: AMPICILLIN NA/SULBACTAM NA 1.5 GM in SODIUM CHLORIDE 100 ML IVPB SCH (21:00)
[2017-06-07] MEDS: ONDANSETRON 4 MG/2 ML VIAL IVPUSH SCH ×2 (01:47→06:10)
[2017-06-07] MEDS: AMPICILLIN NA/SULBACTAM NA 1.5 GM in SODIUM CHLORIDE 100 ML IVPB SCH ×4 (03:11→22:07)
[2017-06-07] MEDS: METOCLOPRAMIDE HCL INJECTION 10 MG/2 ML VIAL IVPB SCH ×4 (03:13→19:29)
[2017-06-07] MEDS: PREGABALIN 50 MG CAPSULE PO SCH ×3 (06:09→21:35)
[2017-06-07] MEDS: LEVOTHYROXINE NA 112 MCG TABLET (FP) PO SCH (06:09)
[2017-06-07] MEDS ORDERED: LIDOCAINE HCL/PF 2% SDV 5ML VIAL SQ ONE ×2 (09:27)
--- NOTE | 2017-06-07 09:58 | PN ---
GI Progress Note Subjective: tolerated diet this morning, no further nausea and vomiting - Objective Vital Signs: Vital Signs Temperature 98.1 F 06/07/17 06:21 Pulse Rate 66 06/07/17 06:21 Respiratory Rate 20 06/07/17 06:21 Blood Pressure 139/72 06/07/17 06:21 O2 Sat by Pulse Oximetry (%) 98 06/06/17 21:00 Constitutional: Well Nourished Eyes: Yes: Conjunctiva Clear HENT: Yes: Atraumatic Neck: Yes: Trachea Midline Cardiovascular: Yes: Regular Rate and Rhythm Respiratory: Yes: CTA Bilaterally ...Palpate: Yes: Soft. No: Firm/Rigid, Guarding, Hepatomegaly, Mass, Pulsatile Mass, Splenomegaly, Tenderness Labs: CBC, BMP 06/06/17 05:35 06/06/17 05:35 Problem List - Problems (1) Diabetic gastroparesis Assessment/Plan: R>continue Reglan, Zofran and Protonix made aware to follow-up Code(s): E11.43 - TYPE 2 DIABETES W DIABETIC AUTONOMIC (POLY)NEUROPATHY; K31.84 - GASTROPARESIS (2) Abscess of sacrum Assessment/Plan: await surgical consultation Code(s): M46.28 - OSTEOMYELITIS OF VERTEBRA, SACRAL AND SACROCOCCYGEAL REGION
[2017-06-07] MEDS: PANTOPRAZOLE 40 MG TABLET (FP) PO SCH (10:34)
[2017-06-07] MEDS: SERTRALINE HCL 50 MG TABLET (FP) PO SCH (10:34)
[2017-06-07] MEDS: LUBIPROSTONE 24 MCG CAPSULE PO SCH (10:35)
[2017-06-07] MEDS ORDERED: LIDOCAINE HCL 1%, 10 MG/ML (20ML VIAL) ONE (10:39)
--- NOTE | 2017-06-07 10:43 | PN ---
Progress Note, Physician Chief Complaint: Nausea/vomiting History of Present Illness: seen during bedside I&D being performed by Dr Mcknight. NAD - Current Medication List Current Medications: Active Medications Albuterol Sulfate (Ventolin 0.083% Nebulizer Soln -) 1 amp NEB Q6H PRN PRN Reason: SHORT OF BREATH/WHEEZING Sodium Chloride (Normal Saline -) 1,000 mls @ 125 mls/hr IV ASDIR [facility] Last Admin: 06/06/17 20:24 Dose: Not Given Ampicillin Sodium/Sulbactam (Sodium 1.5 gm/ Sodium Chloride) 100 mls @ 200 mls/ hr IVPB Q6H-IV [facility] Last Admin: 06/07/17 09:30 Dose: 200 mls/hr Levothyroxine Sodium (Synthroid -) 112 mcg PO DAILY@0700 [facility] Last Admin: 06/07/17 06:09 Dose: 112 mcg Lidocaine HCl (Xylocaine 2% Preserv-Free) 10 mg SQ ONCE ONE Stop: 06/07/17 09:28 Metoclopramide HCl (Reglan Injection -) 10 mg IVPB Q8H [facility] Stop: 06/07/17 19:16 Last Admin: 06/07/17 10:35 Dose: 10 mg Lubiprostone 24 Mcg (Capsule) 24 mcg PO DAILY [facility] Last Admin: 06/07/17 10:35 Dose: 24 mcg Ondansetron HCl (Zofran Injection) 4 mg IVPUSH Q4H PRN PRN Reason: NAUSEA AND/OR VOMITING Pantoprazole Sodium (Protonix -) 40 mg PO DAILY [facility] Last Admin: 06/07/17 10:34 Dose: 40 mg Pregabalin (Lyrica -) 100 mg PO TID [facility] Last Admin: 06/07/17 06:09 Dose: 100 mg Sertraline HCl (Zoloft -) 50 mg PO DAILY [facility] Last Admin: 06/07/17 10:34 Dose: 50 mg - Objective Vital Signs: Vital Signs Temperature 98.1 F 06/07/17 06:21 Pulse Rate 66 06/07/17 06:21 Respiratory Rate 20 06/07/17 06:21 Blood Pressure 139/72 06/07/17 06:21 O2 Sat by Pulse Oximetry (%) 98 06/06/17 21:00 Constitutional: Yes: Well Nourished, No Distress, Calm Musculoskeletal: Yes: WNL Extremities: Yes: WNL Edema: No Integumentary: Yes: Incision Wound/Incision: Yes: Draining Neurological: Yes: Alert, Oriented Psychiatric: Yes: Alert, Oriented Labs: CBC, BMP 06/06/17 05:35 06/06/17 05:35 Problem List - Problems (1) Abscess of sacrum Assessment/Plan: -seen by Surgery -I&D performed at bedside -wound cultures Code(s): M46.28 - OSTEOMYELITIS OF VERTEBRA, SACRAL AND SACROCOCCYGEAL REGION (2) Diabetic gastroparesis Assessment/Plan: -seen by Endocrinology and GI Code(s): E11.43 - TYPE 2 DIABETES W DIABETIC AUTONOMIC (POLY)NEUROPATHY; K31.84 - GASTROPARESIS (3) IDDM (insulin dependent diabetes mellitus) Assessment/Plan: -Endocrinology consult -on insulin pump -BGM -Diabetic diet Code(s): E11.9 - TYPE 2 DIABETES MELLITUS WITHOUT COMPLICATIONS; Z79.4 - HALF-WAY (CURRENT) USE OF INSULIN (4) Chronic back pain Assessment/Plan: -pain management Code(s): M54.9 - DORSALGIA, UNSPECIFIED; G89.29 - OTHER CHRONIC PAIN Qualifiers: Back pain location: low back pain Back pain laterality: bilateral Sciatica presence: without sciatica Qualified Code(s): M54.5 - Low back pain (5) Nausea and vomiting Assessment/Plan: -resolved Code(s): R11.2 - NAUSEA WITH VOMITING, UNSPECIFIED (6) Anemia Assessment/Plan: -chronic disease -check Iron, folate, B 12 -stool ob Code(s): D64.9 - ANEMIA, UNSPECIFIED Assessment/Plan see problem list
[2017-06-07] MEDS: ONDANSETRON 4 MG/2 ML VIAL IVPUSH PRN (12:40)
[2017-06-07] MEDS: SODIUM CHLORIDE 1,000 ML IV SCH (18:11)
--- NOTE | 2017-06-07 18:23 | CONSULT ---
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 Cardio/Vascular: Yes: HTN Gastrointestinal: Yes: Gastritis Musculoskeletal: Yes: Chronic low back pain Endocrine: Yes: Diabetes Mellitus - Alcohol/Substance Use Hx Alcohol Use: No - Smoking History Smoking history: Never smoked Have you smoked in the past 12 months: No Aproximately how many cigarettes per day: 0 Home Medications - Allergies Allergies/Adverse Reactions: Allergies Allergy/AdvReac Type Severity Reaction Status Date / Time quetiapine fumarate Allergy Unknown hypotension Verified 05/27/16 22:05 [From Seroquel] - Home Medications Home Medications: Ambulatory Orders Insulin Pump Syringe, 3 ml [Paradigm] 1 each MC ASDIR 10/04/13 Pregabalin [Lyrica -] 100 mg PO TID 09/22/14 Levothyroxine [Synthroid -] 112 mcg PO DAILY 05/28/16 Metoclopramide HCl [Reglan -] 10 mg PO BID #60 tablet 05/28/16 Buprenorphine HCl/Naloxone HCl [Suboxone 12 mg-3 mg Sl Film] 1 each SL PRN 06/05 Lubiprostone [Amitiza] 24 mcg PO DAILY 06/05/17 Ondansetron [Ondansetron Odt] 8 mg PO PRN 06/05/17 RX: Sertraline HCl 50 mg PO DAILY 06/05/17 RX: Tizanidine HCl 4 mg PO DAILY 06/05/17 Sennosides [Senna] 8.6 mg PO PRN 06/05/17 Family Disease History - Family Disease History Other Family History: Aunts have type 2 DM Review of Systems - Review of Systems Constitutional: denies: Chills, Fever HENT: reports: No Symptoms Neck: reports: No Symptoms Cardiovascular: reports: No Symptoms Respiratory: reports: No Symptoms Gastrointestinal: reports: No Symptoms Integumentary: reports: Erythema, Other (tenderness at sacral region) Neurological: denies: Change in LOC Pain Intensity: 3 Physical Exam Vital Signs: Vital Signs Temperature 98.3 F 06/07/17 17:10 Pulse Rate 75 06/07/17 17:10 Respiratory Rate 20 06/07/17 17:10 Blood Pressure 149/70 06/07/17 17:10 O2 Sat by Pulse Oximetry (%) 98 06/07/17 09:00 Constitutional: Yes: Calm HENT: Yes: WNL Neck: Yes: Supple Cardiovascular: Yes: Regular Rate and Rhythm Respiratory: Yes: Regular Gastrointestinal: Yes: Soft. No: Tenderness Integumentary: Yes: Other (+ sacral abscess 2cm x 2cm Mild erythema + fluctuant ) Neurological: Yes: Alert, Oriented Labs: CBC, BMP 06/06/17 05:35 06/06/17 05:35 Problem List - Problems (1) Abscess of sacrum Code(s): M46.28 - OSTEOMYELITIS OF VERTEBRA, SACRAL AND SACROCOCCYGEAL REGION Assessment/Plan Incision and drainage of sacral abscess needed Abx Wound care
--- NOTE | 2017-06-07 18:24 | PROC ---
Incision and Drainage Indication/Location: Sacral abscess Risks and Benefits Explained: Yes Consent on Chart: Yes Betadine cleansed: Yes Anesthesia: 1% Lidocaine Blade Size: 10 Plain packing: Yes Sterile Dressing Applied: Yes
[2017-06-07] MEDS ORDERED: PT OWN MED DRAWER 7, Y5N ONE (21:06)
[2017-06-08] MEDS: ONDANSETRON 4 MG/2 ML VIAL IVPUSH PRN ×2 (02:06→12:11)
[2017-06-08] MEDS: AMPICILLIN NA/SULBACTAM NA 1.5 GM in SODIUM CHLORIDE 100 ML IVPB SCH ×5 (02:06→18:05)
[2017-06-08] MEDS: PREGABALIN 50 MG CAPSULE PO SCH ×3 (06:45→21:19)
[2017-06-08] MEDS: LEVOTHYROXINE NA 112 MCG TABLET (FP) PO SCH (06:45)
[2017-06-08 08:10] LABS: BASO % 1.4 % (0-2.0); EOS % 4.6 % (0-4.5); HEMATOCRIT 38.9 % (35.4-49); HEMOGLOBIN 12.8 GM/dL (11.7-16.9); MCH 28.6 pg (25.7-33.7); MCHC 32.9 g/dl (32.0-35.9); MEAN CELL VOLUME 87.1 fl (80-96); MEAN PLT VOLUME 10.6 fl (7.5-11.1); MONO % 8.4 % (3.8-10.2); NEUT % 51.6 % (42.8-82.8); PLATELET COUNT 165 K/MM3 (134-434); RBC 4.47 M/mm3 (4.00-5.60); RDW 13.4 % (11.9-15.9); WHITE BLOOD COUNT 4.4 K/mm3 (4.0-10.0)
[2017-06-08] MEDS ORDERED: PT OWN MED DRAWER 7, Y5N ONE ×4 (08:52→21:15)
[2017-06-08 09:02] LABS: ALBUMIN 3.4 g/dl (3.4-5.0); ANION GAP 9 (8-16); BILIRUBIN,TOTAL 0.5 mg/dL (0.2-1.0); BLOOD UREA NITROGEN 6 mg/dL (7-18); CALCIUM 8.3 mg/dL (8.5-10.1); CHLORIDE 102 mmol/L (98-107); CO2 28 mmol/L (21-32); GLUCOSE,RANDOM 182 mg/dL (74-106); POTASSIUM 3.2 mmol/L (3.5-5.1); SGOT/AST 12 U/L (15-37); SGPT/ALT 22 U/L (12-78); SODIUM 139 mmol/L (136-145); TOT PROT 6.2 g/dl (6.4-8.2)
[2017-06-08 09:03] LABS: ALK PHOS 85 U/L (45-117)
--- NOTE | 2017-06-08 10:03 | PN ---
Progress Note, Physician Chief Complaint: Nausea/vomiting History of Present Illness: NAD, self ambulatory has chronic back pain to be seen by pain management has a lumbar stimulator VRE culture and sacral abscess culture pending CT abdomen showed retained stool, on amitiza, had 2 BM's 2 days ago nauseous earlier this AM, felt better after Zofran Has used Senna products in the past for constipation with relief - Current Medication List Current Medications: Active Medications Albuterol Sulfate (Ventolin 0.083% Nebulizer Soln -) 1 amp NEB Q6H PRN PRN Reason: SHORT OF BREATH/WHEEZING Ampicillin Sodium/Sulbactam (Sodium 1.5 gm/ Sodium Chloride) 100 mls @ 200 mls/ hr IVPB Q6H-IV [facility] Last Admin: 06/08/17 02:06 Dose: 200 mls/hr Lactated Ringer's (Lactated Ringers Solution) 1,000 ml in 1,000 mls @ 75 mls/ hr IV [facility]IR [facility] Levothyroxine Sodium (Synthroid -) 112 mcg PO DAILY@0700 [facility] Last Admin: 06/08/17 06:45 Dose: 112 mcg Lubiprostone 24 Mcg (Capsule) 24 mcg PO DAILY [facility] Last Admin: 06/07/17 10:35 Dose: 24 mcg Ondansetron HCl (Zofran Injection) 4 mg IVPUSH Q4H PRN PRN Reason: NAUSEA AND/OR VOMITING Last Admin: 06/08/17 02:06 Dose: 4 mg Pantoprazole Sodium (Protonix -) 40 mg PO DAILY [facility] Last Admin: 06/07/17 10:34 Dose: 40 mg Potassium Chloride (Potassium Chloride Oral Liquid) 40 meq PO DAILY [facility] Pregabalin (Lyrica -) 100 mg PO TID [facility] Last Admin: 06/08/17 06:45 Dose: 100 mg Sertraline HCl (Zoloft -) 50 mg PO DAILY [facility] Last Admin: 06/07/17 10:34 Dose: 50 mg - Objective Vital Signs: Vital Signs Temperature 99 F 06/08/17 06:00 Pulse Rate 73 06/08/17 06:00 Respiratory Rate 20 06/08/17 06:00 Blood Pressure 153/90 06/08/17 06:00 O2 Sat by Pulse Oximetry (%) 98 06/07/17 21:00 Constitutional: Yes: Well Nourished, No Distress, Calm Cardiovascular: Yes: Regular Rate and Rhythm Respiratory: Yes: Regular Gastrointestinal: Yes: Normal Bowel Sounds Musculoskeletal: Yes: WNL Extremities: Yes: WNL Edema: No Peripheral Pulses WNL: Yes Neurological: Yes: Alert, Oriented Psychiatric: Yes: Alert, Oriented Labs: CBC, BMP 06/08/17 06:00 06/08/17 06:00 Problem List - Problems (1) Abscess of sacrum Assessment/Plan: -seen by Surgery -I&D performed at bedside -wound cultures pending -has had I&D in the past at [facility], received abx, doesn't know what cultures showed -on IV abx -ID consult Code(s): M46.28 - OSTEOMYELITIS OF VERTEBRA, SACRAL AND SACROCOCCYGEAL REGION (2) Diabetic gastroparesis Assessment/Plan: -seen by Endocrinology and GI -Continues with nausea relieved by Zofran Code(s): E11.43 - TYPE 2 DIABETES W DIABETIC AUTONOMIC (POLY)NEUROPATHY; K31.84 - GASTROPARESIS (3) IDDM (insulin dependent diabetes mellitus) Assessment/Plan: -Endocrinology consult -on insulin pump -BGM -Diabetic diet -A1C pending Code(s): E11.9 - TYPE 2 DIABETES MELLITUS WITHOUT COMPLICATIONS; 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.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 (4) Chronic back pain Assessment/Plan: -pain management Code(s): M54.9 - DORSALGIA, UNSPECIFIED; G89.29 - OTHER CHRONIC PAIN Qualifiers: Back pain location: low back pain Back pain laterality: bilateral Sciatica presence: without sciatica Qualified Code(s): M54.5 - Low back pain; G89.29 - Other chronic pain; G89.29 - Other chronic pain (5) Nausea and vomiting Assessment/Plan: -continues with relief with Zofran Code(s): R11.2 - NAUSEA WITH VOMITING, UNSPECIFIED (6) Anemia Assessment/Plan: -chronic disease -check Iron, folate, B 12 -stool ob pending Code(s): D64.9 - ANEMIA, UNSPECIFIED (7) Hypokalemia Assessment/Plan: -KCl PO 40 po daily -repeat labs in AM Code(s): E87.6 - HYPOKALEMIA (8) Constipation Assessment/Plan: -on Amitiza -Add Senna -goal to have BM daily Code(s): K59.00 - CONSTIPATION, UNSPECIFIED Assessment/Plan see problem list PPI DVT prophylaxis
[2017-06-08] MEDS: SERTRALINE HCL 50 MG TABLET (FP) PO SCH (10:28)
[2017-06-08] MEDS: PANTOPRAZOLE 40 MG TABLET (FP) PO SCH (10:28)
[2017-06-08] MEDS: LUBIPROSTONE 24 MCG CAPSULE PO SCH (10:30)
[2017-06-08] MEDS: POTASSIUM CHLORIDE ORAL LIQUID 20 MEQ/15 ML PO SCH (11:17)
--- NOTE | 2017-06-08 11:49 | PN ---
Progress Note (short form) - Note Progress Note: Surgery S/p I&D at bedside yesterday (06/07/17). Patient seen and examined at bedside with no new complaints. Pain is controlled Vital Signs Temp 99 F 06/08/17 06:00 Pulse 73 06/08/17 06:00 Resp 20 06/08/17 06:00 BP 153/90 06/08/17 06:00 Pulse Ox 98 06/07/17 21:00 Intake & Output 06/07/17 06/07/17 06/08/17 11:59 23:59 11:59 Intake Total 1680 3225 1375 Balance 1680 3225 1375 Intake: IV 1000 2375 1375 Normal Saline - 1,000 ml 1000 2375 1375 @ 125 mls/hr IV ASDIR [facility] Rx#:[id number] IVPB 200 300 Oral 480 550 Other: Voiding Method Toilet Toilet # Unmeasured Voids Void 1 3 Bowel Movement No No CBC, BMP 06/08/17 06:00 06/08/17 06:00 PE: A&Ox3 NAD unlabored resp on RA Wound-packing removed, Incision clean and dry with no actie d/c, wound edges clean and dry, no evidence of maceration or breakdown, surround skin intact with no evidence of edema or tracking erythema. Incision repacked and dressed. Imp: s/p I&D of abscess doing well, no signs of infection Plan: 1) continue daily dressing change with wound packing- also change after BM 2) ABX per med/ID 3) OOB as tolerated and frequent re-positioning. 4) DVT prophylaxis <Margy Conner - Last Filed: 06/08/17 11:49> - Note Progress Note: Agree Daily wound care Antibiotics per ID Follow up cultures <Hector Mcknight - Last Filed: 06/08/17 14:48> Problem List - Problems (1) Abscess of sacrum Code(s): M46.28 - OSTEOMYELITIS OF VERTEBRA, SACRAL AND SACROCOCCYGEAL REGION <Hector Mcknight - Last Filed: 06/08/17 14:48>
[2017-06-08] MEDS: HEPARIN NA (PORCINE) 5,000 UNITS/ML 1ML VIAL SQ SCH ×2 (12:00→21:19)
[2017-06-08] MEDS: AMPICILLIN NA/SULBACTAM NA 1.5 GM in DEXTROSE 5%-WATER - 100 ML IVPB SCH ×2 (15:34→20:45)
--- NOTE | 2017-06-08 16:29 | PN ---
Progress Note (short form) - Note Progress Note: ID consult dictated imp/reccd 41 year old man history of IDDM since age 4 recently with small sacral abscess in March that has recurred in April and again now ct abd pelvis- no bony pathology cavity is clean- no surrounding erythema , no purulent drainage gram stain no WBC, NOS doubt this is an antibiotic issue if culture is negative, can d/c unasyn d/w Dr Mcknight he needs plastic surgery to see him- can be done as outpt Problem List - Problems (1) Abscess of sacrum Code(s): M46.28 - OSTEOMYELITIS OF VERTEBRA, SACRAL AND SACROCOCCYGEAL REGION (2) IDDM (insulin dependent diabetes mellitus) Code(s): E11.9 - TYPE 2 DIABETES MELLITUS WITHOUT COMPLICATIONS; 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
[2017-06-08] MEDS: METOCLOPRAMIDE HCL 10 MG TABLET (FP) PO SCH (18:05)
--- NOTE | 2017-06-08 18:53 | CONS ---
DATE OF CONSULTATION: DATE OF DICTATION: 06/08/2017 INFECTIOUS DISEASE CONSULTATION REQUESTING PHYSICIAN: William Acosta M.D. HISTORY OF PRESENT ILLNESS: This is a 41-year-old man with a history of asthma since age 4. He was admitted for nausea, vomiting, and abdominal pain. He was noted to have a small sacral ulcer. He had a CAT scan of his abdomen and pelvis done that showed no evidence of abscess, did not show any bony pathology. He had the abscess drained in the ER and later drained by Dr. Mcknight at the bedside. I am asked to see him in followup. He reports that he originally had an abscess at that spot in March, was seen in clinic, the wound was drained and packed. He was followed by VNS at home with resolution. It recurred Thanksgiving time at the same spot. He was seen by a surgeon, again had it drained and packed, and was again followed by visiting nurse, and then this has now happened for the third time. He has no associated fever, chills. His nausea and vomiting have improved. PAST MEDICAL HISTORY: Notable for asthma, anemia, diabetes, hyperlipidemia, hypertension, depression, gastroparesis, and BPH. SURGICAL HISTORY: Notable for appendectomy. He has an insulin pump. As well he has 2 bladder stimulators. He also has had a trigger finger release many years ago. ALLERGIES: He is allergic to SEROQUEL. MEDICATION: At home include insulin, Lyrica, Synthroid, Reglan, Suboxone, Amitza, senna, sertraline, and tizanidine. SOCIAL HISTORY: He lives at home with his and children. REVIEW OF SYSTEMS: He is feeling better. FAMILY HISTORY: Notable for type 2 diabetes. PHYSICAL EXAMINATION: General: He is awake and alert. Vital signs: Temperature 98, pulse 70, blood pressure 138/80, respiratory rate 18. HEENT: Normocephalic. Eyes are anicteric. Neck: Supple. Lungs: Clear to auscultation. Heart: Regular rate and rhythm. Abdomen: Soft, nontender. He has a small cavity on his sacral side with packing. When we removed the packing, there is no pus, there is no surrounding erythema. Gram stain from that area shows no polycytes and no organisms. He has had multiple imaging, CAT scans and x- rays have shown no bony erosions or pathology. IMPRESSION: 1. In summary, this is a 41-year-old man with a recurrent small sacral abscess. Essentially he has a cavity that has not closed. I suspect this is not an infectious disease issue. If the cultures are negative from the area, I would suggest he discontinue his antibiotics. Discussed the case with Dr. Mcknight and would recommend that he see plastic surgery in order to have the cavity closed. It could be done as an outpatient. 2. Insulin dependent diabetes. 3. Gastroparesis with nausea, vomiting, which appears to be improved. Would continue Unasyn for now pending cultures. MAVERICK PETERSON M.D. [id number] MTDGibran
[2017-06-08] MEDS: SENNOSIDES 8.6MG TABLET (FP) PO SCH (21:19)
[2017-06-09] MEDS: LACTATED RINGERS SOLUTION 1,000 ML/1,000 ML INFUS.BAG IV SCH ×2 (02:49→14:57)
[2017-06-09] MEDS: AMPICILLIN NA/SULBACTAM NA 1.5 GM in DEXTROSE 5%-WATER - 100 ML IVPB SCH ×2 (02:53→09:47)
--- NOTE | 2017-06-09 03:19 | CONSULT ---
Consult Consult Specialty:: endocrine Referred by:: ace jacobson np Reason for Consultation:: iddm type 1 - History of Present Illness Chief Complaint: nausea abdominal pain History of Present Illness: 41 year old male with PMHx of asthma, anemia, IDDM, hyperlipidemia, HTN, depression, gastroparesis, prostatic hypertrophy who presented to the ED with nausea, vomiting, and abdominal pain since this AM. He states his partner had a stomach virus 1 week ago with vomiting as well. The patient has a history of gastroparesis,with recurrent eposodes of dka,and labile glucose levels,he has diabetic eye disease and neuropathy,recent sacaral abscess required id in er since admission blood sugars have stabilized on insulin pump low dose basal rates - Past Medical History [employer]: Yes: Peripheral Neuropathy Cardio/Vascular: Yes: HTN Gastrointestinal: Yes: Gastritis Musculoskeletal: Yes: Chronic low back pain Endocrine: Yes: Diabetes Mellitus - Alcohol/Substance Use Hx Alcohol Use: No - Smoking History Smoking history: Never smoked Have you smoked in the past 12 months: No Aproximately how many cigarettes per day: 0 Home Medications - Allergies Allergies/Adverse Reactions: Allergies Allergy/AdvReac Type Severity Reaction Status Date / Time quetiapine fumarate Allergy Unknown hypotension Verified 05/27/16 22:05 [From Seroquel] - Home Medications Home Medications: Ambulatory Orders Insulin Pump Syringe, 3 ml [Paradigm] 1 each MC ASDIR 10/04/13 Pregabalin [Lyrica -] 100 mg PO TID 09/22/14 Levothyroxine [Synthroid -] 112 mcg PO DAILY 05/28/16 Metoclopramide HCl [Reglan -] 10 mg PO BID #60 tablet 05/28/16 Buprenorphine HCl/Naloxone HCl [Suboxone 12 mg-3 mg Sl Film] 1 each SL PRN 06/05 Lubiprostone [Amitiza] 24 mcg PO DAILY 06/05/17 Ondansetron [Ondansetron Odt] 8 mg PO PRN 06/05/17 Sennosides [Senna] 8.6 mg PO PRN 06/05/17 Sertraline HCl 50 mg PO DAILY 06/05/17 Tizanidine HCl 4 mg PO DAILY 06/05/17 Family Disease History - Family Disease History Other Family History: Aunts have type 2 DM Review of Systems - Review of Systems Constitutional: reports: Lethargy, Loss of Appetite, Weakness Eyes: reports: Blurred Vision HENT: reports: No Symptoms Neck: reports: No Symptoms Cardiovascular: reports: Shortness of Breath Respiratory: reports: Exercise Intolerance, SOB on Exertion Gastrointestinal: reports: Abdominal Pain, Constipation, Nausea Genitourinary: reports: No Symptoms Breasts: reports: No Symptoms Reported Musculoskeletal: reports: Muscle Pain, Muscle Cramps, Muscle Weakness Neurological: reports: No Symptoms, Weakness Endocrine: reports: No Symptoms Psychiatric: reports: Anxiety, Depression Physical Exam Vital Signs: Vital Signs Temperature 97.7 F 06/08/17 21:28 Pulse Rate 78 06/08/17 21:28 Respiratory Rate 18 06/08/17 21:28 Blood Pressure 110/65 06/08/17 21:28 O2 Sat by Pulse Oximetry (%) 98 06/08/17 09:00 Constitutional: Yes: Anxious Eyes: Yes: EOM Intact HENT: Yes: Normocephalic Neck: Yes: Trachea Midline Cardiovascular: Yes: Regular Rate and Rhythm Respiratory: Yes: CTA Bilaterally Gastrointestinal: Yes: Normal Bowel Sounds, Tenderness, Epigastrium ...Rectal Exam: Yes: Deferred Renal/: Yes: WNL Breast(s): Yes: WNL Musculoskeletal: Yes: Back Pain Extremities: Yes: WNL Wound/Incision: Yes: Well Approximated, Dressing Dry and Intact Neurological: Yes: Alert, Oriented Labs: CBC, BMP 06/08/17 06:00 06/08/17 06:00 Problem List - Problems (1) Abscess of sacrum Code(s): M46.28 - OSTEOMYELITIS OF VERTEBRA, SACRAL AND SACROCOCCYGEAL REGION (2) Diabetic gastroparesis Code(s): E11.43 - TYPE 2 DIABETES W DIABETIC AUTONOMIC (POLY)NEUROPATHY; K31.84 - GASTROPARESIS (3) IDDM (insulin dependent diabetes mellitus) Code(s): E11.9 - TYPE 2 DIABETES MELLITUS WITHOUT COMPLICATIONS; Z79.4 - REINFORCING [employer] W[employer] MESH (CURRENT) USE OF INSULIN (4) Lactic acid blood increased Code(s): R79.89 - OTHER SPECIFIED ABNORMAL FINDINGS OF BLOOD CHEMISTRY (5) Persistent vomiting Code(s): R11.10 - VOMITING, UNSPECIFIED Assessment/Plan Current Active Problems Abscess of sacrum (Acute) Anemia (Acute) Constipation (Acute) Diabetic gastroparesis (Acute) Hypokalemia (Acute) IDDM (insulin dependent diabetes mellitus) (Acute) Lactic acid blood increased (Acute) Persistent vomiting (Acute) Abnormal Lab Results 06/08/17 06/08/17 06/08/17 06:00 06:00 06:00 Eosinophils % 4.6 H D Potassium 3.2 L D BUN 6 L D Random Glucose 182 H Hemoglobin A1c % Calcium 8.3 L AST 12 L Total Protein 6.2 L TSH 7.20 H D Free T4 1.23 H 06/08/17 07:53 Eosinophils % Potassium BUN Random Glucose Hemoglobin A1c % 8.4 H D Calcium AST Total Protein TSH Free T4 Laboratory Results - last 24 hr 06/08/17 06/08/17 06/08/17 06:00 06:00 06:00 WBC 4.4 D RBC 4.47 Hgb 12.8 D Hct 38.9 MCV 87.1 MCH 28.6 MCHC 32.9 RDW 13.4 Plt Count 165 MPV 10.6 Neutrophils % 51.6 D Lymphocytes % 34.0 D Monocytes % 8.4 Eosinophils % 4.6 H D Basophils % 1.4 Sodium 139 Potassium 3.2 L D Chloride 102 Carbon Dioxide 28 D Anion Gap 9 BUN 6 L D Creatinine 1.0 Creat Clearance w eGFR > 60 POC Glucometer Random Glucose 182 H Hemoglobin A1c % Calcium 8.3 L Ferritin 52.899 Total Bilirubin 0.5 AST 12 L ALT 22 D Alkaline Phosphatase 85 Total Protein 6.2 L Albumin 3.4 Vitamin B12 Serum Folate 5 TSH Free T4 06/08/17 06/08/17 06/08/17 06:00 06:43 07:53 WBC RBC Hgb Hct MCV MCH MCHC RDW Plt Count MPV Neutrophils % Lymphocytes % Monocytes % Eosinophils % Basophils % Sodium Potassium Chloride Carbon Dioxide Anion Gap BUN Creatinine Creat Clearance w eGFR POC Glucometer 233 Random Glucose Hemoglobin A1c % 8.4 H D Calcium Ferritin Total Bilirubin AST ALT Alkaline Phosphatase Total Protein Albumin Vitamin B12 707 Serum Folate 5 TSH 7.20 H D Free T4 1.23 H 06/08/17 06/08/17 06/08/17 10:25 10:25 12:03 WBC RBC Hgb Hct MCV MCH MCHC RDW Plt Count MPV Neutrophils % Lymphocytes % Monocytes % Eosinophils % Basophils % Sodium Potassium Chloride Carbon Dioxide Anion Gap BUN Creatinine Creat Clearance w eGFR POC Glucometer 140 Random Glucose Hemoglobin A1c % Calcium Ferritin Total Bilirubin AST ALT Alkaline Phosphatase Total Protein Albumin Vitamin B12 Serum Folate TSH Cancelled Free T4 Cancelled 06/08/17 06/08/17 06/09/17 16:59 21:21 01:21 WBC RBC Hgb Hct MCV MCH MCHC RDW Plt Count MPV Neutrophils % Lymphocytes % Monocytes % Eosinophils % Basophils % Sodium Potassium Chloride Carbon Dioxide Anion Gap BUN Creatinine Creat Clearance w eGFR POC Glucometer 159 81 168 Random Glucose Hemoglobin A1c % Calcium Ferritin Total Bilirubin AST ALT Alkaline Phosphatase Total Protein Albumin Vitamin B12 Serum Folate TSH Free T4 plan: bgm qid novolog basal bolus using insulin pump device iv antibiotic therapy
[2017-06-09] MEDS: ONDANSETRON 4 MG/2 ML VIAL IVPUSH PRN (04:37)
[2017-06-09] MEDS: PREGABALIN 50 MG CAPSULE PO SCH ×3 (05:50→22:07)
[2017-06-09 06:07] LABS: SERUM IRON SATURATION 29 % (15-55); TOTAL IRON BINDING CAPACITY 217 ug/dL (250-450); UIBC 153 ug/dL (111-343)
[2017-06-09] MEDS ORDERED: PT OWN MED DRAWER 7, Y5N ONE (06:42)
[2017-06-09] MEDS: METOCLOPRAMIDE HCL 10 MG TABLET (FP) PO SCH ×3 (06:51→17:40)
[2017-06-09] MEDS: LEVOTHYROXINE NA 112 MCG TABLET (FP) PO SCH (06:51)
--- NOTE | 2017-06-09 09:27 | PN ---
Progress Note (short form) - Note Progress Note: ID Unasyn No complaints Selected Entries 06/09/17 06:11 Temperature 98.1 F Pulse Rate 73 Respiratory 20 Rate Blood Pressure 149/85 Sacral wound with blood drainage No pus or cellulitis Microbiology 06/07/17 10:30 Coccyx Gram Stain - Final 06/05/17 19:45 Blood - Peripheral Venous Blood Culture - Preliminary NO GROWTH OBTAINED AFTER 72 HOURS, INCUBATION TO CONTINUE FOR 2 DAYS. 06/05/17 19:00 Blood - Peripheral Venous Blood Culture - Preliminary NO GROWTH OBTAINED AFTER 72 HOURS, INCUBATION TO CONTINUE FOR 2 DAYS. Laboratory Tests 06/08/17 06:00 WBC 4.4 D Hgb 12.8 D Plt Count 165 Assessment Looks as though can be changed to po antibiotic No growth on culture ? Need for antibiotic Plan Stop Unasyn
[2017-06-09 09:55] LABS: ANION GAP 7 (8-16); BLOOD UREA NITROGEN 9 mg/dL (7-18); CALCIUM 8.6 mg/dL (8.5-10.1); CHLORIDE 103 mmol/L (98-107); CO2 29 mmol/L (21-32); CREATININE 0.8 mg/dL (0.7-1.3); GLUCOSE,RANDOM 135 mg/dL (74-106); POTASSIUM 3.7 mmol/L (3.5-5.1); SODIUM 139 mmol/L (136-145)
--- NOTE | 2017-06-09 10:50 | PN ---
Progress Note, Physician Chief Complaint: Nausea/vomiting History of Present Illness: NAD, self ambulatory has chronic back pain to be seen by pain management has a lumbar stimulator VRE culture and sacral abscess culture-preliminary negative CT abdomen showed retained stool, on amitiza, had 2 BM's 2 days ago nauseous earlier this AM, felt better after Zofran Has used Senna products in the past for constipation with relief IV abx discontinued - Current Medication List Current Medications: Active Medications Albuterol Sulfate (Ventolin 0.083% Nebulizer Soln -) 1 amp NEB Q6H PRN PRN Reason: SHORT OF BREATH/WHEEZING Heparin Sodium (Porcine) (Heparin -) 5,000 unit SQ BID [facility] Last Admin: 06/08/17 21:19 Dose: 5,000 unit Lactated Ringer's (Lactated Ringers Solution) 1,000 ml in 1,000 mls @ 75 mls/ hr IV ASDIR [facility] Last Admin: 06/09/17 02:49 Dose: 75 mls/hr Levothyroxine Sodium (Synthroid -) 112 mcg PO DAILY@0700 [facility] Last Admin: 06/09/17 06:51 Dose: 112 mcg Metoclopramide HCl (Reglan -) 5 mg PO TIDAC [facility] Last Admin: 06/09/17 06:51 Dose: 5 mg Lubiprostone 24 Mcg (Capsule) 24 mcg PO DAILY [facility] Last Admin: 06/08/17 10:30 Dose: 24 mcg Ondansetron HCl (Zofran Injection) 4 mg IVPUSH Q4H PRN PRN Reason: NAUSEA AND/OR VOMITING Last Admin: 06/09/17 04:37 Dose: 4 mg Pantoprazole Sodium (Protonix -) 40 mg PO DAILY [facility] Last Admin: 06/08/17 10:28 Dose: 40 mg Potassium Chloride (Potassium Chloride Oral Liquid) 40 meq PO DAILY [facility] Last Admin: 06/08/17 11:17 Dose: 40 meq Pregabalin (Lyrica -) 100 mg PO TID [facility] Last Admin: 06/09/17 05:50 Dose: 100 mg Senna (Senna -) 1 tab PO HS [facility] Last Admin: 06/08/17 21:19 Dose: 1 tab Sertraline HCl (Zoloft -) 50 mg PO DAILY [facility] Last Admin: 06/08/17 10:28 Dose: 50 mg - Objective Vital Signs: Vital Signs Temperature 98.1 F 06/09/17 06:11 Pulse Rate 73 06/09/17 06:11 Respiratory Rate 20 06/09/17 06:11 Blood Pressure 149/85 06/09/17 06:11 O2 Sat by Pulse Oximetry (%) 98 06/08/17 21:00 Constitutional: Yes: Well Nourished, No Distress, Calm Cardiovascular: Yes: Regular Rate and Rhythm Respiratory: Yes: Regular Gastrointestinal: Yes: WNL Musculoskeletal: Yes: WNL Extremities: Yes: WNL Edema: No Peripheral Pulses WNL: Yes Neurological: Yes: Alert, Oriented Psychiatric: Yes: Alert, Oriented Labs: CBC, BMP 06/08/17 06:00 06/09/17 09:10 Problem List - Problems (1) Abscess of sacrum Assessment/Plan: -seen by Surgery -I&D performed at bedside by Dr Mcknight -wound cultures preliminary is negative -has had I&D in the past at [facility], received abx, doesn't know what cultures showed -IV abx discontinued as per ID Code(s): M46.28 - OSTEOMYELITIS OF VERTEBRA, SACRAL AND SACROCOCCYGEAL REGION (2) Diabetic gastroparesis Assessment/Plan: -seen by Endocrinology and GI -Continues with nausea relieved by Zofran Code(s): E11.43 - TYPE 2 DIABETES W DIABETIC AUTONOMIC (POLY)NEUROPATHY; K31.84 - GASTROPARESIS (3) IDDM (insulin dependent diabetes mellitus) Assessment/Plan: -Endocrinology consult -on insulin pump -BGM -Diabetic diet -A1C 8.4 Code(s): E11.9 - TYPE 2 DIABETES MELLITUS WITHOUT COMPLICATIONS; Z79.4 - GROUP HOME (CURRENT) USE OF INSULIN (4) Chronic back pain Assessment/Plan: -pain management Code(s): M54.9 - DORSALGIA, UNSPECIFIED; G89.29 - OTHER CHRONIC PAIN Qualifiers: Back pain location: low back pain Back pain laterality: bilateral Sciatica presence: without sciatica Qualified Code(s): M54.5 - Low back pain; G89.29 - Other chronic pain; G89.29 - Other chronic pain (5) Nausea and vomiting Assessment/Plan: -continues with relief with Zofran Code(s): R11.2 - NAUSEA WITH VOMITING, UNSPECIFIED (6) Anemia Assessment/Plan: -chronic disease -Iron, folate, B 12 normal -stool ob pending Code(s): D64.9 - ANEMIA, UNSPECIFIED (7) Hypokalemia Assessment/Plan: -resolved -KCl PO 40 po daily Code(s): E87.6 - HYPOKALEMIA (8) Constipation Assessment/Plan: -on Amitiza -Add Senna -goal to have BM daily Code(s): K59.00 - CONSTIPATION, UNSPECIFIED Assessment/Plan see problem list PPI DVT prophylaxis
[2017-06-09] MEDS: HEPARIN NA (PORCINE) 5,000 UNITS/ML 1ML VIAL SQ SCH ×2 (11:35→22:09)
[2017-06-09] MEDS: POTASSIUM CHLORIDE ORAL LIQUID 20 MEQ/15 ML PO SCH (11:35)
[2017-06-09] MEDS: LUBIPROSTONE 24 MCG CAPSULE PO SCH (11:36)
[2017-06-09] MEDS: SERTRALINE HCL 50 MG TABLET (FP) PO SCH (11:36)
[2017-06-09] MEDS: PANTOPRAZOLE 40 MG TABLET (FP) PO SCH (11:36)
--- NOTE | 2017-06-09 12:27 | DS ---
Physical Examination Vital Signs: Vital Signs Temperature 98.1 F 06/09/17 06:11 Pulse Rate 73 06/09/17 06:11 Respiratory Rate 20 06/09/17 06:11 Blood Pressure 149/85 06/09/17 06:11 O2 Sat by Pulse Oximetry (%) 98 06/08/17 21:00 Constitutional: Yes: Well Nourished, No Distress, Calm Cardiovascular: Yes: Regular Rate and Rhythm Respiratory: Yes: Regular Gastrointestinal: Yes: WNL Musculoskeletal: Yes: WNL Extremities: Yes: WNL Edema: No Peripheral Pulses WNL: Yes Integumentary: Yes: Incision (sacral) Wound/Incision: Yes: Dressing Dry and Intact Neurological: Yes: Alert, Oriented Psychiatric: Yes: Alert, Oriented Labs: CBC, BMP 06/08/17 06:00 06/09/17 09:10 Discharge Summary Reason For Visit: INSULIN DEPENDENT DIABETES MELLITUS Current Active Problems Abscess of sacrum (Acute) Anemia (Acute) Constipation (Acute) Diabetic gastroparesis (Acute) Hypokalemia (Acute) IDDM (insulin dependent diabetes mellitus) (Acute) Lactic acid blood increased (Acute) Persistent vomiting (Acute) Hospital Course: This is a 41 year old male with PMHx of asthma, anemia, IDDM, hyperlipidemia, HTN, depression, gastroparesis, prostatic hypertrophy who presented to the ED with nausea, vomiting, and abdominal pain since this AM. He states his partner had a stomach virus 1 week ago with vomiting as well. The patient reports a history of gastroparesis and he used marijuana last night. He states his vomiting is non bloody. He denies any diarrhea. He states he has a humalog insulin pump. The patient denies any fever, chills, chest pain, dizziness, headache. Patient was also noted to have a sacral abscess that was I&D in the ED with no surrounding evidence of infection During his stay, he received IV abx He was seen by Surgery Dr Mcknight for I&D, with iodine packing and dressing to be changed daily Wound culture pending VRE culture pending Condition: Stable - Instructions Referrals: Augustus Grewal MD [Primary Care Provider] - Disposition: VNS/HOME HEALTH CARE - Home Medications Comprehensive Discharge Medication List: Ambulatory Orders Insulin Pump Syringe, 3 ml [Paradigm] 1 each MC ASDIR 10/04/13 Pregabalin [Lyrica -] 100 mg PO TID 09/22/14 Levothyroxine [Synthroid -] 112 mcg PO DAILY 05/28/16 Metoclopramide HCl [Reglan -] 10 mg PO BID #60 tablet 05/28/16 Buprenorphine HCl/Naloxone HCl [Suboxone 12 mg-3 mg Sl Film] 1 each SL PRN 06/05 Lubiprostone [Amitiza] 24 mcg PO DAILY 06/05/17 Ondansetron [Ondansetron Odt] 8 mg PO PRN 06/05/17 Sennosides [Senna] 8.6 mg PO PRN 06/05/17 Sertraline HCl 50 mg PO DAILY 06/05/17 Tizanidine HCl 4 mg PO DAILY 06/05/17
--- NOTE | 2017-06-09 13:52 | PN ---
Progress Note (short form) - Note Progress Note: No acute events Pain controlled Vital Signs Period Temp Pulse Resp BP Sys/Warner Pulse Ox Last 24 Hr 97.7 F-98.2 F 70-83 18-20 110-149/65-85 98 Wound packed, dressing in place JOHANNY GEORGE 06/08/17 06:00 06/09/17 09:10 Continue daily wound care with iodoform Follow up with plastic surgery for recurring wound Problem List - Problems (1) Abscess of sacrum Code(s): M46.28 - OSTEOMYELITIS OF VERTEBRA, SACRAL AND SACROCOCCYGEAL REGION
[2017-06-09] MEDS ORDERED: ACETAMINOPHEN 325 MG TABLET (FP) PO PRN (21:33)
[2017-06-09] MEDS: SENNOSIDES 8.6MG TABLET (FP) PO SCH (22:07)
[2017-06-10] MEDS: ONDANSETRON 4 MG/2 ML VIAL IVPUSH PRN (02:16)
[2017-06-10] MEDS: METOCLOPRAMIDE HCL 10 MG TABLET (FP) PO SCH ×2 (06:03→10:53)
[2017-06-10] MEDS: LEVOTHYROXINE NA 112 MCG TABLET (FP) PO SCH (06:04)
[2017-06-10] MEDS: PREGABALIN 50 MG CAPSULE PO SCH (06:04)
--- NOTE | 2017-06-10 10:23 | PN ---
Progress Note, Physician Chief Complaint: Nausea/vomiting History of Present Illness: NAD, self ambulatory has chronic back pain to be seen by pain management has a lumbar stimulator VRE culture and sacral abscess culture-preliminary negative CT abdomen showed retained stool, on amitiza, had 2 BM's 2 days ago Has used Senna products in the past for constipation with relief - Current Medication List Current Medications: Active Medications Acetaminophen (Tylenol -) 650 mg PO Q6H PRN PRN Reason: FEVER OR PAIN Last Admin: 06/09/17 22:08 Dose: 650 mg Albuterol Sulfate (Ventolin 0.083% Nebulizer Soln -) 1 amp NEB Q6H PRN PRN Reason: SHORT OF BREATH/WHEEZING Heparin Sodium (Porcine) (Heparin -) 5,000 unit SQ BID [facility] Last Admin: 06/09/17 22:09 Dose: 5,000 unit Levothyroxine Sodium (Synthroid -) 112 mcg PO DAILY@0700 [facility] Last Admin: 06/10/17 06:04 Dose: 112 mcg Metoclopramide HCl (Reglan -) 5 mg PO TIDAC [facility] Last Admin: 06/10/17 06:03 Dose: 5 mg Lubiprostone 24 Mcg (Capsule) 24 mcg PO DAILY [facility] Last Admin: 06/09/17 11:36 Dose: 24 mcg Ondansetron HCl (Zofran Injection) 4 mg IVPUSH Q4H PRN PRN Reason: NAUSEA AND/OR VOMITING Last Admin: 06/10/17 02:16 Dose: 4 mg Pantoprazole Sodium (Protonix -) 40 mg PO DAILY [facility] Last Admin: 06/09/17 11:36 Dose: 40 mg Potassium Chloride (Potassium Chloride Oral Liquid) 40 meq PO DAILY [facility] Last Admin: 06/09/17 11:35 Dose: 40 meq Pregabalin (Lyrica -) 100 mg PO TID [facility] Last Admin: 06/10/17 06:04 Dose: 100 mg Senna (Senna -) 1 tab PO HS [facility] Last Admin: 06/09/17 22:07 Dose: 1 tab Sertraline HCl (Zoloft -) 50 mg PO DAILY [facility] Last Admin: 06/09/17 11:36 Dose: 50 mg - Objective Vital Signs: Vital Signs Temperature 98 F 06/10/17 06:00 Pulse Rate 79 06/10/17 06:00 Respiratory Rate 18 06/10/17 06:00 Blood Pressure 123/74 06/10/17 06:00 O2 Sat by Pulse Oximetry (%) 100 06/09/17 21:00 Constitutional: Yes: Well Nourished, No Distress, Calm Cardiovascular: Yes: Regular Rate and Rhythm Respiratory: Yes: Regular Musculoskeletal: Yes: WNL Extremities: Yes: WNL Edema: No Peripheral Pulses WNL: Yes Wound/Incision: Yes: Dressing Dry and Intact Neurological: Yes: Alert, Oriented Psychiatric: Yes: Alert, Oriented Labs: CBC, BMP 06/08/17 06:00 06/09/17 09:10 Problem List - Problems (1) Abscess of sacrum Assessment/Plan: -seen by Surgery -I&D performed at bedside by Dr Mcknight -wound cultures preliminary is negative -has had I&D in the past at [facility], received abx, doesn't know what cultures showed -Will see Plastic surgery outpatient Code(s): M46.28 - OSTEOMYELITIS OF VERTEBRA, SACRAL AND SACROCOCCYGEAL REGION (2) Diabetic gastroparesis Assessment/Plan: -seen by Endocrinology and GI -resolved Code(s): E11.43 - TYPE 2 DIABETES W DIABETIC AUTONOMIC (POLY)NEUROPATHY; K31.84 - GASTROPARESIS (3) IDDM (insulin dependent diabetes mellitus) Assessment/Plan: -Endocrinology consult -on insulin pump -BGM -Diabetic diet -A1C 8.4 Code(s): E11.9 - TYPE 2 DIABETES MELLITUS WITHOUT COMPLICATIONS; Z79.4 - [place] (CURRENT) USE OF INSULIN (4) Chronic back pain Assessment/Plan: -pain management Code(s): M54.9 - DORSALGIA, UNSPECIFIED; G89.29 - OTHER CHRONIC PAIN Qualifiers: Back pain location: low back pain Back pain laterality: bilateral Sciatica presence: without sciatica Qualified Code(s): M54.5 - Low back pain; G89.29 - Other chronic pain; G89.29 - Other chronic pain (5) Nausea and vomiting Assessment/Plan: -resolved Code(s): R11.2 - NAUSEA WITH VOMITING, UNSPECIFIED (6) Anemia Assessment/Plan: -chronic disease -Iron, folate, B 12 normal -stool ob pending Code(s): D64.9 - ANEMIA, UNSPECIFIED (7) Hypokalemia Assessment/Plan: -resolved -KCl PO 40 po daily Code(s): E87.6 - HYPOKALEMIA (8) Constipation Assessment/Plan: -on Amitiza -Add Senna -goal to have BM daily Code(s): K59.00 - CONSTIPATION, UNSPECIFIED Assessment/Plan see problem list
[2017-06-10] MEDS: SERTRALINE HCL 50 MG TABLET (FP) PO SCH (10:53)
[2017-06-10] MEDS: POTASSIUM CHLORIDE ORAL LIQUID 20 MEQ/15 ML PO SCH (10:53)
[2017-06-10] MEDS: LUBIPROSTONE 24 MCG CAPSULE PO SCH (10:53)
[2017-06-10] MEDS: HEPARIN NA (PORCINE) 5,000 UNITS/ML 1ML VIAL SQ SCH (10:53)
[2017-06-10] MEDS: PANTOPRAZOLE 40 MG TABLET (FP) PO SCH (10:53)
[2017-06-10 13:00] VITALS: BP 120/65; PULSE 77; TEMP 98
== END 2017-06-10 13:39 | disposition home health service (06) | DRG 74 ==
LOC: JER 12:40 → OBSVTOIN 19:04 → JERBED 19:04 → J8W 22:44
PROVIDERS: ADMIT Family Medicine; ATTEND Family Medicine
PROC: 0H96XZX Drainage of Back Skin, External Approach, Diagnostic (ICD-10-PCS; principal; 2017-06-07)
DX: E10.43 Type 1 diabetes mellitus with diabetic autonomic (poly)neuropathy (principal); L02.212 Cutaneous abscess of back [any part, except buttock and flank]; E10.65 Type 1 diabetes mellitus with hyperglycemia; F12.10 Cannabis abuse, uncomplicated; E86.0 Dehydration; K31.84 Gastroparesis; J45.909 Unspecified asthma, uncomplicated; E78.5 Hyperlipidemia, unspecified; F32.9 Major depressive disorder, single episode, unspecified; N40.0 Benign prostatic hyperplasia without lower urinary tract symptoms; D64.9 Anemia, unspecified; Z96.41 Presence of insulin pump (external) (internal); E10.42 Type 1 diabetes mellitus with diabetic polyneuropathy; D63.8 Anemia in other chronic diseases classified elsewhere; E87.6 Hypokalemia; K59.00 Constipation, unspecified; M54.5 Low back pain
CPT/HCPCS: 36415; 71010-TC; 72100-TC; 72220-TC; 74177-TC; 80048; 80053; 81003; 82009; 82607; 82728; 82746; 82803; 83036; 83540; 83550; 83605; 83735; 84100; 84439; 84443; 85025; 87040; 87070; 87081; 87086; 87205; 93005; 93010; 99284-25; J1644

== ENCOUNTER 2018-05-13 23:53 | Inpatient (IN) | payer OTHER ==
--- NOTE | 2018-05-14 00:11 | PDOC ---
Attending Attestation - HPI HPI: 05/14/18 01:28 The patient is a 42 year old male, with a significant PMH of nephrolithiasis, diabetic gastroparesis, IDDM (insulin pump), who presents to the emergency department complaining of abdomen pain that began one day ago. The patient states abdomen pain is constant located to the epigastric area that radiates to the left anterior chest wall. The patient reports he endorses associated symptoms of bilious, non bloody emesis, accelerated heart rate, fevers and chills. The patient notes pain is exacerbated with food. He mentions he went to [facility] in [facility] for similar issue and was treated with Toradol and Reglan. The patient denies chest pain, shortness of breath, headache and dizziness.Denies, nausea, diarrhea and constipation.Denies dysuria, frequency, urgency and hematuria. Allergies: NKDA Past surgical history: appendectomy Social history: Denies tobacco, alcohol or recreational drug use PCP:Dr. Grewal Documentation prepared by Ben Suarez, acting as medical review specialist for Althea Akhtar MD. - Physicial Exam PE: 05/14/18 01:28 GENERAL: Awake, alert, and fully oriented, in no acute distress HEAD: No signs of trauma EYES: PERRLA, EOMI, sclera anicteric, conjunctiva clear ENT: Auricles normal inspection, hearing grossly normal, nares patent, oropharynx clear without exudates. Moist mucosa NECK: Normal ROM, supple, no lymphadenopathy, JVD, or masses LUNGS: Breath sounds equal, clear to auscultation bilaterally. No wheezes, and no crackles HEART: Regular rate and rhythm, normal S1 and S2, no murmurs, rubs or gallops ABDOMEN: Soft, nontender, normoactive bowel sounds. No guarding, no rebound. No masses EXTREMITIES: Normal range of motion, no edema. No clubbing or cyanosis. No cords, erythema, or tenderness NEUROLOGICAL: Cranial nerves II through XII grossly intact. Normal speech, normal gait SKIN: Warm, Dry, normal turgor, no rashes or lesions noted. Documentation prepared by Ben Suarez, acting as medical review specialist for Althea Akhtar MD. <Ben Suarez - Last Filed: 05/14/18 01:28> - Resident Resident Name: Young,Leif - ED Attending Attestation I have performed the following: I have examined & evaluated the patient, The case was reviewed & discussed with the resident, I agree w/resident's findings & plan - HPI HPI: 05/14/18 00:09 Pt was sent to the ER by his PMD Dr. Grewal for recurrent vomiting and abdominal pain. He wants pt to be admitted to Dr. Acosta/Sascha dan evaluation and hydration. (They admit to the hospitalist.) - Medical Decision Making 05/14/18 01:07 Patient Name: Benjamin Pandey Date: 1975 Address: [address] [place] [address] Sex: Male Rx Written Rx Dispensed Drug Quantity Days Supply Prescriber Name 03/13/2018 04/26/2018 lyrica 150 mg capsule 90 30 [place], Denice Vargas MD 03/21/2018 04/26/2018 suboxone 8 mg-2 mg sl film 60 30 AszalosJoaquina MD 03/21/2018 03/24/2018 suboxone 8 mg-2 mg sl film 60 30 AszalosJoaquina MD 03/13/2018 03/14/2018 lyrica 150 mg capsule 90 30 [place], Denice Vargas MD 01/16/2018 02/23/2018 suboxone 8 mg-2 mg sl film 60 30 [place], Denice Vragas MD 12/12/2017 02/22/2018 lyrica 150 mg capsule 90 30 [place], Denice Vargas MD 12/12/2017 01/18/2018 lyrica 150 mg capsule 90 30 [place], Denice Vargas MD 01/16/2018 01/18/2018 suboxone 8 mg-2 mg sl film 60 30 [place], Denice Vargas MD 11/16/2017 12/23/2017 suboxone 8 mg-2 mg sl film 60 30 [place], Denice Vargas MD 08/19/2017 11/18/2017 lyrica 150 mg capsule 90 30 [place], Denice Vargas MD 11/16/2017 11/18/2017 suboxone 8 mg-2 mg sl film 60 30 [place], Denice Vargas MD 08/19/2017 10/16/2017 lyrica 150 mg capsule 90 30 [place], Denice Vargas MD 09/16/2017 10/16/2017 suboxone 8 mg-2 mg sl film 60 30 [place], Denice Vargas MD 08/19/2017 09/16/2017 lyrica 150 mg capsule 90 30 [place], Denice Vargas MD 09/16/2017 09/16/2017 suboxone 8 mg-2 mg sl film 60 30 [place], Denice Vargas MD 08/19/2017 08/19/2017 lyrica 150 mg capsule 90 30 [place], Denice Vargas MD 08/19/2017 08/19/2017 suboxone 8 mg-2 mg sl film 60 30 [place], Denice Vargas MD 06/15/2017 06/15/2017 suboxone 8 mg-2 mg sl film 60 30 Joaquina Wilson MD 05/24/2017 05/25/2017 suboxone 8 mg-2 mg sl film 45 30 Coloka-JackpDm DO 05/14/18 01:18 CXR normal CBC normal 05/14/18 01:19 Chem pending 05/14/18 19:32 Pt will be admitted for uncontrolled DM and ketosis. <Althea Akhtar - Last Filed: 05/14/18 19:35>
--- NOTE | 2018-05-14 00:15 | PDOC ---
History of Present Illness - General Stated Complaint: BACK PAIN/FEVER Time Seen by Provider: 05/13/18 23:55 - History of Present Illness Initial Comments: 05/14/18 00:09 42 yo M with h/o IDDM ( on Insulin Pump ), Diabetic gastroparesis, nephrolithiasis who p/w epigastria abdominal pain. Patient reports one day of worsening epigastria, burning abdominal pain, with radiation to left sided chest. Worse with PO intake. Also endorses two days of bilious, non bloody emesis, aggravated with PO intake, and subjective fevers/chills. Reports accelerated heart rate x 1 day. Patient reports recent discharge from ED [facility], today for similar complaint, after being treated with Toradol, and Reglan. Reports at home BS~200, with EMS check of BS~360. Patient reports taking stool softener x 2 days, with now liquid stools. Took Immodium OTC tablets with no improvement. Patient denies LUJAN, vision change, palpitations, cough, wheezing, SOB, urinary complaints, hematuria, BPR, constipation, lightheadedness, weakness, convulsions, sensory changes. PMHx: as noted above. H/o appendectomy. ROS: as noted SHx: Denies tobacco, IVDA, Etoh Allergies: NKDA PMD: Dr. Grewal Past History - Past Medical History Allergies/Adverse Reactions: Allergies Allergy/AdvReac Type Severity Reaction Status Date / Time quetiapine fumarate Allergy Unknown hypotension Verified 05/14/18 00:22 [From Seroquel] Home Medications: Ambulatory Orders Insulin Pump Syringe, 3 ml [Paradigm] 1 each ASDIR 10/04/13 Pregabalin [Lyrica -] 100 mg PO TID 09/22/14 Levothyroxine [Synthroid -] 112 mcg PO DAILY 05/28/16 Metoclopramide HCl [Reglan -] 10 mg PO BID #60 tablet 05/28/16 Lubiprostone [Amitiza] 24 mcg PO DAILY 06/05/17 Ondansetron [Zofran *Odt*] 8 mg PO PRN 06/05/17 Sennosides [Senna] 8.6 mg PO PRN 06/05/17 Buprenorphine/Naloxone [Suboxone 8Mg/2Mg Sl Film -] 1 each SL Q12H 05/14/18 Ranitidine [Zantac -] 150 mg PO BID 05/14/18 Anemia: Yes Asthma: No Cancer: No Cardiac Disorders: Yes (HEART MURMUR A CHILD; NO MEDS) CVA: No COPD: No CHF: No Dementia: No Diabetes: Yes (IDDM,insulin pump) GI Disorders: Yes (gastroparesis) Disorders: Yes (indweling urinary catherer, prostatic hypertrophy) HTN: Yes Hypercholesterolemia: Yes Liver Disease: No Psychiatric Problems: Yes (depression) Seizures: No Thyroid Disease: Yes - Surgical History Abdominal Surgery: No Appendectomy: Yes (age 27) Cardiac Surgery: No Cholecystectomy: No Lung Surgery: No Neurologic Surgery: No Orthopedic Surgery: Yes (Trigger finger release, arthroscopy for bone spur L shoulder) - Immunization History Immunization Up to Date: Yes - Suicide/Smoking/Psychosocial Hx Smoking Status: No Smoking History: Never smoked Have you smoked in the past 12 months: No Number of Cigarettes Smoked Daily: 0 Cigars Per Day: 0 Hx Alcohol Use: No Drug/Substance Use Hx: No Substance Use Type: None Hx Substance Use Treatment: No Review of Systems - Review of Systems Comments:: 05/14/18 00:20 GENERAL/CONSTITUTIONAL: No fever or chills. No weakness. HEAD, EYES, EARS, NOSE AND THROAT: No change in vision. No ear pain or discharge. No sore throat. CARDIOVASCULAR: + chest pain. No shortness of breath RESPIRATORY: No cough, wheezing, or hemoptysis. GASTROINTESTINAL: + nausea, vomiting, diarrhea. GENITOURINARY: No dysuria, frequency, or change in urination. MUSCULOSKELETAL: No joint or muscle swelling or pain. No neck or back pain. SKIN: No rash NEUROLOGIC: No headache, vertigo, loss of consciousness, or change in strength/ sensation. ENDOCRINE: No increased thirst. No abnormal weight change HEMATOLOGIC/LYMPHATIC: No anemia, easy bleeding, or history of blood clots. ALLERGIC/IMMUNOLOGIC: No hives or skin allergy. *Physical Exam - Physical Exam Comments: 05/14/18 00:21 GENERAL: Awake, alert, and fully oriented, in no acute distress HEAD: No signs of trauma, normocephalic, atraumatic EYES: + Conjuctival Pallor. PERRLA, EOMI, sclera anicteric, conjunctiva clear ENT: Auricles normal inspection, hearing grossly normal, nares patent, oropharynx clear without exudates. Moist mucosa NECK: Normal ROM, supple, no lymphadenopathy, JVD, or masses LUNGS: No distress, speaks full sentences, clear to auscultation bilaterally HEART: Regular rate and rhythm, normal S1 and S2, no murmurs, rubs or gallops, peripheral pulses normal and equal bilaterally. ABDOMEN: + Epiagstric ttp. Soft, NDS, normoactive bowel sounds. No guarding, no rebound. No masses. Neg CVA ttp. EXTREMITIES : Normal inspection, Normal range of motion, no edema. No clubbing or cyanosis. NEUROLOGICAL: Cranial nerves II through XII grossly intact. Normal speech, normal gait, no focal sensorimotor deficits SKIN: Warm, Dry, normal turgor, no rashes or lesions noted ED Treatment Course - LABORATORY CBC & Chemistry Diagram: 05/14/18 00:30 05/14/18 00:30 - RADIOLOGY Radiology Studies Ordered: Category Date Time Status CHEST X-RAY PORTABLE* [RAD] Stat Radiology 05/13/18 23:58 Ordered Medical Decision Making - Medical Decision Making 05/14/18 00:15 42 yo M with h/o IDDM ( on Insulin Pump ), Diabetic gastroparesis, nephrolithiasis who p/w epigastric abdominal pain. + Epigastric ttp. Will consider diabetic gastroparesis, esophagitis, gastriits, pancreatitis, biliary dz.pleural effusion. R/o PNA. PERC neg PE. Low suspcion pericarditis, ACS/AL, AAA, Ao dissection. Will evaluate for hyperglycemia/DKA, cardiac dysarrythmias, metabolic and toxic derangements, acid-base disturbances, infection. Ed Course: CBC, CMP, VBG, CARDIAC [place]., PHOSPHORUS, MAGENSIUM, LIPASE, BCx. UCx EKG, CXR NS, Maloox, Famotidine, Zofran 05/14/18 00:25 EKG: Sinus tachycardia 102, Qtc 453, nml axis. Absent SANDY, STD. Nml R wave progression. 05/14/18 01:08 VB.33 CBC: Unremarkable 05/14/18 01:37 Anion gap 11 HCO3: 26 Acetone: 2+ GLU: 268 UA: Neg Patient stable and tolerating PO intake. Stable for d/c with return precautions. 05/14/18 02:38 Patient endorsed to Keiry Georges. Admit to medicine/Ifudu. *DC/Admit/Observation/Transfer Diagnosis at time of Disposition: Hyperglycemia due to type 1 diabetes mellitus Abdominal pain Qualifiers: Abdominal location: epigastric Qualified Code(s): R10.13 - Epigastric pain - Discharge Dispostion Condition at time of disposition: Stable Decision to Admit order: Yes - Referrals - Patient Instructions Printed Discharge Instructions: DI for Abdominal Pain-Adult Additional Instructions: Please return to the emergency department with any new or worsening symptoms or concerns. Please follow up with your primary care physician within 72 hours. - Post Discharge Activity - Attestations Physician Attestion: 05/14/18 01:38 I attest to the information provided in this note.
[2018-05-14] MEDS ORDERED: MAG HYDROX/AL HYDROX/SIMETH 30 ML UNIT-DOSE CUP PO ONE (00:18)
[2018-05-14] MEDS ORDERED: SODIUM CHLORIDE 1,000 ML IV STA ×2 (00:18→02:39)
[2018-05-14] MEDS ORDERED: FAMOTIDINE 20 MG/50 ML IVPB 20 MG/50 ML MG IVPB ONE ×2 (00:18→00:48)
[2018-05-14] MEDS ORDERED: ONDANSETRON 4 MG/2 ML VIAL IVPUSH ONE (00:18)
[2018-05-14] MEDS ORDERED: MAG HYDROX/AL HYDROX/SIMETH 30 ML UNIT-DOSE CUP ONE (00:47)
[2018-05-14] MEDS ORDERED: ONDANSETRON 4 MG/2 ML VIAL ONE (00:48)
[2018-05-14 00:54] LABS: VENOUS PC02 49.9 mmHg (38-52); VENOUS PH 7.33 (7.32-7.42); VENOUS PO2 20.9 mmHg (28-48)
[2018-05-14 01:02] LABS: BASO % 0.7 % (0-2.0); EOS % 0.4 % (0-4.5); HEMOGLOBIN 13.3 GM/dL (11.7-16.9); LYMPH % 10.4 % (8-40); MCH 30.8 pg (25.7-33.7); MEAN CELL VOLUME 87.9 fl (80-96); MEAN PLT VOLUME 9.9 fl (7.5-11.1); MONO % 5.7 % (3.8-10.2); NEUT % 82.8 % (42.8-82.8); PLATELET COUNT 208 K/MM3 (134-434); RBC 4.33 M/mm3 (4.00-5.60); RDW 13.9 % (11.9-15.9); WHITE BLOOD COUNT 4.1 K/mm3 (4.0-10.0)
[2018-05-14 01:26] LABS: LIPASE 64 U/L (73-393); MAGNESIUM 1.9 mg/dL (1.8-2.4)
[2018-05-14 01:31] LABS: ALBUMIN 4.2 g/dl (3.4-5.0); ALK PHOS 121 U/L (45-117); ANION GAP 11 MMOL/L (8-16); BILIRUBIN,TOTAL 0.7 mg/dL (0.2-1); BLOOD UREA NITROGEN 10 mg/dL (7-18); CALCIUM 8.7 mg/dL (8.5-10.1); CHLORIDE 96 mmol/L (98-107); CO2 26 mmol/L (21-32); CREATININE 1.1 mg/dL (0.55-1.3); GLUCOSE,RANDOM 268 mg/dL (74-106); POTASSIUM 4.2 mmol/L (3.5-5.1); SGOT/AST 18 U/L (15-37); SGPT/ALT 24 U/L (13-61); SODIUM 133 mmol/L (136-145); TOT PROT 8.2 g/dl (6.4-8.2)
[2018-05-14 01:53] LABS: ACETONE SERUM POSITIVE MODERATE 2+ (NEGATIVE)
[2018-05-14] MEDS ORDERED: SODIUM CHLORIDE 0.9% 500 ML INFUS.BAG IV ONE ×2 (01:56→02:37)
[2018-05-14 02:18] LABS: URINE APPEARANCE CLEAR; URINE BILIRUBIN NEGATIVE (<2.0 mg/dL); URINE COLOR COLORLESS; URINE GLUCOSE (UA) 3+ (NEGATIVE); URINE KETONE 2+ (NEGATIVE); URINE LEUK ESTERASE NEGATIVE (NEGATIVE); URINE NITRITE NEGATIVE (NEGATIVE); URINE PROTEIN NEGATIVE (NEGATIVE); URINE UROBILINOGEN NEGATIVE mg/dL (0.2-1.0)
[2018-05-14] MEDS ORDERED: ONDANSETRON 4 MG/2 ML VIAL IVPUSH PRN (02:39)
[2018-05-14 03:47] LABS: COCAINE, UR NEGATIVE ng/ml (CUTOFF=300); METHADONE, UR NEGATIVE ng/ml (CUTOFF=300); OPIATES, URI NEGATIVE ng/ml (CUTOFF=300); PHENCYCLIDINE,URINE NEGATIVE ng/ml (CUTOFF=25); URINE AMPHETAMINES NEGATIVE ng/ml (CUTOFF=500); URINE BARBITURATES NEGATIVE ng/ml (CUTOFF=200); URINE BENZODIAZEPINES NEGATIVE ng/ml (CUTOFF=200)
[2018-05-14] MEDS ORDERED: DEXTROSE 5%-NORMAL SALINE 1,000 ML IV ONE (03:49)
[2018-05-14] MEDS ORDERED: INSULIN REGULAR HUMAN 100 UNITS/ML *VIAL IVPUSH ONE (03:49)
[2018-05-14 04:01] LABS: MAGNESIUM 1.8 mg/dL (1.8-2.4); PHOSPHOROUS 2.1 mg/dL (2.5-4.9)
[2018-05-14] MEDS ORDERED: INSULIN REGULAR HUMAN 100 UNITS/ML *VIAL ONE (04:06)
[2018-05-14 05:32] VITALS: BMI 23.9
[2018-05-14] MEDS: METOCLOPRAMIDE HCL INJECTION 10 MG/2 ML VIAL IVPUSH PRN ×2 (06:02→11:57)
--- NOTE | 2018-05-14 06:37 | HP ---
Admitting History and Physical - Primary Care Physician PCP: Augustus Grewal - Admission Chief Complaint: Vomiting, Epigastric Pain, Burning History of Present Illness: This is a 42 y/o man with a PMHx of: IDDM (on Insulin Pump), Diabetic Gastroparesis, Nephrolithiasis. Who presents to the ED with epigastric pain, non -bloody emesis, loose stools x several days. Patient reports being seen and treated at [facility] yesterday for the same without improvement. Patient reports taking stool softeners and laxatives for constipation and now has frequent loose non-bloody stools. Patient describes the pain as constant, cramping and burning. Patient denies fever, cough, dizziness, SOB, CP, palpitations, dysuria. History Source: Patient Limitations to Obtaining History: No Limitations - Past Medical History [employer]: Yes: Peripheral Neuropathy Cardiovascular: Yes: HTN Gastrointestinal: Yes: Gastritis Renal/: Yes: Renal Calculi Heme/Onc: Yes: Anemia Musculoskeletal: Yes: Chronic low back pain Endocrine: Yes: Diabetes Mellitus - Past Surgical History Past Surgical History: Yes: Appendectomy Additional Past Surgical History: Bladder Repair Bladder Stimulator (no MRIs) L-Shoulder Decompression x3 - Smoking History Smoking history: Former smoker Have you smoked in the past 12 months: No Aproximately how many cigarettes per day: 0 If you are a former smoker, when did you quit?: as a teenager - Alcohol/Substance Use Hx Alcohol Use: No History of Substance Use: reports: Marijuana - Social History Usual Living Arrangement: Yes: Alone ADL: Independent Occupation: not employed History of Recent Travel: No Home Medications - Allergies Allergies/Adverse Reactions: Allergies Allergy/AdvReac Type Severity Reaction Status Date / Time quetiapine fumarate Allergy Unknown hypotension Verified 05/14/18 00:22 [From Seroquel] - Home Medications Home Medications: Ambulatory Orders Insulin Pump Syringe, 3 ml [Paradigm] 1 each MC ASDIR 10/04/13 Pregabalin [Lyrica -] 150 mg PO TID 09/22/14 Levothyroxine [Synthroid -] 112 mcg PO DAILY 05/28/16 Lubiprostone [Amitiza] 24 mcg PO DAILY PRN 06/05/17 Ondansetron [Zofran *Odt*] 8 mg PO PRN 06/05/17 Sennosides [Senna] 8.6 mg PO PRN 06/05/17 Buprenorphine/Naloxone [Suboxone 8Mg/2Mg Sl Film -] 1 each SL Q12H 05/14/18 Metoclopramide HCl [Reglan -] 10 mg PO BID PRN 05/14/18 Ranitidine [Zantac -] 150 mg PO BID 05/14/18 Family Disease History - Family Disease History Other Family History: Cousin - Type I DM. Familal hx- Asthma, Joint Conditons Review of Systems - Review of Systems Constitutional: reports: Chills, Loss of Appetite Eyes: reports: No Symptoms HENT: reports: No Symptoms Neck: reports: No Symptoms Cardiovascular: reports: No Symptoms Respiratory: reports: No Symptoms Gastrointestinal: reports: Abdominal Pain, Diarrhea, Nausea, Vomiting Genitourinary: reports: No Symptoms Breasts: reports: No Symptoms Reported Musculoskeletal: reports: Back Pain Integumentary: reports: No Symptoms Neurological: reports: No Symptoms Endocrine: reports: No Symptoms Hematology/Lymphatic: reports: No Symptoms Psychiatric: reports: No Symptoms Pain Intensity: 6 Physical Examination Vital Signs: Vital Signs Temperature 98.4 F 05/14/18 05:29 Pulse Rate 98 H 05/14/18 05:29 Respiratory Rate 18 05/14/18 05:29 Blood Pressure 124/77 05/14/18 05:29 O2 Sat by Pulse Oximetry (%) 100 05/14/18 05:27 Constitutional: Yes: No Distress, Calm, Thin Eyes: Yes: WNL, Conjunctiva Clear, EOM Intact, PERRL HENT: Yes: WNL, Atraumatic, Normocephalic Neck: Yes: WNL, Supple, Trachea Midline Cardiovascular: Yes: WNL, Regular Rate and Rhythm, S1, S2 Respiratory: Yes: WNL, Regular, CTA Bilaterally Gastrointestinal: Yes: Soft, Hyperactive Bowel Sounds, Tenderness, Epigastrium, Other (insulin pump) ...Rectal Exam: Yes: Deferred Renal/: Yes: WNL Breast(s): Yes: WNL Musculoskeletal: Yes: WNL Extremities: Yes: WNL Edema: No Peripheral Pulses WNL: Yes Neurological: Yes: WNL, Alert, Oriented, Cran Nerves II-XII Intact ...Motor Strength: WNL Psychiatric: Yes: WNL, Alert, Oriented Labs: CBC, BMP 05/14/18 00:30 12/09/18 03:10 Laboratory Results - last 24 hr 05/14/18 05/14/18 05/14/18 00:30 00:30 00:30 WBC 4.1 RBC 4.33 Hgb 13.3 Hct 38.0 MCV 87.9 MCH 30.8 MCHC 35.0 RDW 13.9 Plt Count 208 D MPV 9.9 Absolute Neuts (auto) 3.4 Neutrophils % 82.8 D Lymphocytes % 10.4 D Monocytes % 5.7 Eosinophils % 0.4 D Basophils % 0.7 Nucleated RBC % 0 VBG pH 7.33 D POC VBG pCO2 49.9 D POC VBG pO2 20.9 L Mixed VBG HCO3 25.8 H Sodium Potassium Chloride Carbon Dioxide Anion Gap BUN Creatinine Creat Clearance w eGFR POC Glucometer Random Glucose Calcium Phosphorus Magnesium 1.9 Total Bilirubin AST ALT Alkaline Phosphatase Creatine Kinase Troponin I Total Protein Albumin Total Amylase Lipase 64 L Urine Color Urine Appearance Urine pH Ur Specific [place] Urine Protein Urine Glucose (UA) Urine Ketones Urine Blood Urine Nitrite Urine Bilirubin Urine Urobilinogen Ur Leukocyte Esterase Opiates Screen Methadone Screen Barbiturate Screen Phencyclidine Screen Ur Amphetamines Screen MDMA (Ecstasy) Screen Benzodiazepines Screen Cocaine Screen U Marijuana (THC) Screen Acetone, Qual Positive moderate 2+ 05/14/18 05/14/18 05/14/18 00:30 00:30 00:30 WBC RBC Hgb Hct MCV MCH MCHC RDW Plt Count MPV Absolute Neuts (auto) Neutrophils % Lymphocytes % Monocytes % Eosinophils % Basophils % Nucleated RBC % VBG pH POC VBG pCO2 POC VBG pO2 Mixed VBG HCO3 Sodium 133 L Potassium 4.2 Chloride 96 L Carbon Dioxide 26 Anion Gap 11 BUN 10 Creatinine 1.1 Creat Clearance w eGFR > 60 POC Glucometer Random Glucose 268 H Calcium 8.7 Phosphorus 3.0 Magnesium Total Bilirubin 0.7 AST 18 ALT 24 Alkaline Phosphatase 121 H Creatine Kinase 144 Troponin I < 0.02 Total Protein 8.2 Albumin 4.2 Total Amylase Lipase Urine Color Urine Appearance Urine pH Ur Specific [place] Urine Protein Urine Glucose (UA) Urine Ketones Urine Blood Urine Nitrite Urine Bilirubin Urine Urobilinogen Ur Leukocyte Esterase Opiates Screen Methadone Screen Barbiturate Screen Phencyclidine Screen Ur Amphetamines Screen MDMA (Ecstasy) Screen Benzodiazepines Screen Cocaine Screen U Marijuana (THC) Screen Acetone, Qual 05/14/18 05/14/18 05/14/18 01:05 02:46 03:00 WBC RBC Hgb Hct MCV MCH MCHC RDW Plt Count MPV Absolute Neuts (auto) Neutrophils % Lymphocytes % Monocytes % Eosinophils % Basophils % Nucleated RBC % VBG pH POC VBG pCO2 POC VBG pO2 Mixed VBG HCO3 Sodium Potassium Chloride Carbon Dioxide Anion Gap BUN Creatinine Creat Clearance w eGFR POC Glucometer [id number] Random Glucose Calcium Phosphorus Magnesium Total Bilirubin AST ALT Alkaline Phosphatase Creatine Kinase Troponin I Total Protein Albumin Total Amylase Lipase Urine Color Colorless Urine Appearance Clear Urine pH 6.0 Ur Specific [place] 1.007 L Urine Protein Negative Urine Glucose (UA) 3+ H Urine Ketones 2+ H Urine Blood Negative Urine Nitrite Negative Urine Bilirubin Negative Urine Urobilinogen Negative Ur Leukocyte Esterase Negative Opiates Screen Negative Methadone Screen Negative Barbiturate Screen Negative Phencyclidine Screen Negative Ur Amphetamines Screen Negative MDMA (Ecstasy) Screen Negative Benzodiazepines Screen Negative Cocaine Screen Negative U Marijuana (THC) Screen Positive A* Acetone, Qual 05/14/18 05/14/18 05/14/18 03:10 03:10 03:10 WBC RBC Hgb Hct MCV MCH MCHC RDW Plt Count MPV Absolute Neuts (auto) Neutrophils % Lymphocytes % Monocytes % Eosinophils % Basophils % Nucleated RBC % VBG pH POC VBG pCO2 POC VBG pO2 Mixed VBG HCO3 Sodium Potassium Chloride Carbon Dioxide Anion Gap BUN Creatinine Creat Clearance w eGFR POC Glucometer Random Glucose Cancelled 167 H Calcium Phosphorus 2.1 L Magnesium 1.8 Total Bilirubin AST ALT Alkaline Phosphatase Creatine Kinase Troponin I Total Protein Albumin Total Amylase 43 Cancelled Lipase 52 L Urine Color Urine Appearance Urine pH Ur Specific [place] Urine Protein Urine Glucose (UA) Urine Ketones Urine Blood Urine Nitrite Urine Bilirubin Urine Urobilinogen Ur Leukocyte Esterase Opiates Screen Methadone Screen Barbiturate Screen Phencyclidine Screen Ur Amphetamines Screen MDMA (Ecstasy) Screen Benzodiazepines Screen Cocaine Screen U Marijuana (THC) Screen Acetone, Qual 05/14/18 03:10 WBC RBC Hgb Hct MCV MCH MCHC RDW Plt Count MPV Absolute Neuts (auto) Neutrophils % Lymphocytes % Monocytes % Eosinophils % Basophils % Nucleated RBC % VBG pH POC VBG pCO2 POC VBG pO2 Mixed VBG HCO3 Sodium Potassium Chloride Carbon Dioxide Anion Gap BUN Creatinine Creat Clearance w eGFR POC Glucometer Random Glucose Calcium Phosphorus Magnesium Total Bilirubin AST ALT Alkaline Phosphatase Creatine Kinase Troponin I Total Protein Albumin Total Amylase Lipase Cancelled Urine Color Urine Appearance Urine pH Ur Specific [place] Urine Protein Urine Glucose (UA) Urine Ketones Urine Blood Urine Nitrite Urine Bilirubin Urine Urobilinogen Ur Leukocyte Esterase Opiates Screen Methadone Screen Barbiturate Screen Phencyclidine Screen Ur Amphetamines Screen MDMA (Ecstasy) Screen Benzodiazepines Screen Cocaine Screen U Marijuana (THC) Screen Acetone, Qual Imaging - Results EKG: Image Reviewed Problem List - Problems (1) Hyperglycemia due to type 1 diabetes mellitus Assessment/Plan: BGMs Appreciate Endocrinology consult Continue Insulin Pump Code(s): E10.65 - TYPE 1 DIABETES MELLITUS WITH HYPERGLYCEMIA (2) Diabetic gastroparesis Assessment/Plan: Likely secondary to Cannabis use NS, Zofran given in ED Reglan prn Monitor lytes Monitor vitals Advised pt on Cannabis Cessation Code(s): E11.43 - TYPE 2 DIABETES W DIABETIC AUTONOMIC (POLY)NEUROPATHY; K31.84 - GASTROPARESIS (3) Abdominal pain Assessment/Plan: Likely secondary to Gastroparesis NS bolus given in ED Continue Pepcid Diabetic Clear Diet as tolerated Patient reports being seen at [facility] for same, will need to review diagnostic records Consider GI consult if condition worsens If unable to get [facility] records, consider reimaging Monitor CBC, BMP Stool Cultures-pending Code(s): R10.9 - UNSPECIFIED ABDOMINAL PAIN Qualifiers: Abdominal location: epigastric Qualified Code(s): R10.13 - Epigastric pain (4) Nausea and vomiting Assessment/Plan: Zofran given in ED Reglan prn Monitor BMP Code(s): R11.2 - NAUSEA WITH VOMITING, UNSPECIFIED (5) Dehydration Assessment/Plan: UA- +2 ketones NS boluses given in ED PO liquids as tolerated Monitor BMP Monitor vitals Code(s): E86.0 - DEHYDRATION (6) IDDM (insulin dependent diabetes mellitus) Assessment/Plan: Patient may continue insulin pump Insulin Pump Settings: 12:00A 0.7 12:00P 0.6 06:00P 1.0 BGMs Clear Diabetic Diet as tolerated Code(s): E11.9 - TYPE 2 DIABETES MELLITUS WITHOUT COMPLICATIONS; Z79.4 - CURRICULUM COORDINATOR (CURRENT) USE OF INSULIN (7) Hypothyroidism Assessment/Plan: Continue Levothyroxine Code(s): E03.9 - HYPOTHYROIDISM, UNSPECIFIED (8) Anemia Assessment/Plan: stable Hgb 13.3 Will transfuse if Hgb < 7.0 Code(s): D64.9 - ANEMIA, UNSPECIFIED (9) Chronic back pain Assessment/Plan: Continue home med Code(s): M54.9 - DORSALGIA, UNSPECIFIED; G89.29 - OTHER CHRONIC PAIN Qualifiers: Back pain location: low back pain Back pain laterality: bilateral Sciatica presence: without sciatica Qualified Code(s): M54.5 - Low back pain; G89.29 - Other chronic pain Assessment/Plan This is a 42 y/o man placed in Observation for Hyperglycemia, Intractable Abdominal Pain, Diabetic Gastroparesis for further evaluation of their emergent condition. FEN PO fluids as tolerated Replete lytes prn Diabetic Clear Diet ad nilay DVT ppx OOB SCDs Dispo: Observation Visit type - Emergency Visit Emergency Visit: Yes ED Registration Date: 05/14/18 Care time: The patient presented to the Emergency Department on the above date and was hospitalized for further evaluation of their emergent condition. - New Patient This patient is new to me today: Yes Date on this admission: 05/14/18 - Critical Care Critical Care patient: No
[2018-05-14] MEDS: LEVOTHYROXINE NA 112 MCG TABLET (FP) PO SCH (06:41)
--- NOTE | 2018-05-14 09:25 | EKG ---
Test Reason : Blood Pressure : / mmHG Vent. Rate : 102 BPM Atrial Rate : 102 BPM P-R Int : 148 ms QRS Dur : 080 ms QT Int : 348 ms P-R-T Axes : 068 072 067 degrees QTc Int : 453 ms SINUS TACHYCARDIA OTHERWISE NORMAL ECG WHEN COMPARED WITH ECG OF 05-JUN-2017 13:11, NONSPECIFIC T WAVE ABNORMALITY NO LONGER EVIDENT IN INFERIOR LEADS Confirmed by CHIO DUPONT, BARBY ([id number]) on 05/14/2018 9:25:10 AM Referred By: Confirmed By:BARBY BARROSO MD
[2018-05-14] MEDS: FAMOTIDINE 20 MG/50 ML IVPB 20 MG/50 ML MG IVPB SCH ×2 (09:37→21:00)
--- NOTE | 2018-05-14 14:25 | PN ---
Progress Note, Physician - Current Medication List Current Medications: Active Medications Famotidine/Sodium Chloride (Pepcid 20 Mg Premixed Ivpb -) 20 mg in 50 mls @ 100 mls/hr IVPB BID [facility] Last Admin: 05/14/18 09:37 Dose: 100 mls/hr Levothyroxine Sodium (Synthroid -) 112 mcg PO DAILY@0700 [facility] Last Admin: 05/14/18 06:41 Dose: 112 mcg Metoclopramide HCl (Reglan Injection -) 10 mg IVPUSH Q6H PRN PRN Reason: NAUSEA AND/OR VOMITING Last Admin: 05/14/18 11:57 Dose: 10 mg - Objective Vital Signs: Vital Signs Temperature 98.4 F 05/14/18 05:29 Pulse Rate 98 H 05/14/18 05:29 Respiratory Rate 18 05/14/18 05:29 Blood Pressure 124/77 05/14/18 05:29 O2 Sat by Pulse Oximetry (%) 100 05/14/18 05:27 Cardiovascular: Yes: Regular Rate and Rhythm Respiratory: Yes: Regular, CTA Bilaterally Gastrointestinal: Yes: Normal Bowel Sounds, Soft, Tenderness, Epigastrium Labs: CBC, BMP 05/14/18 00:30 05/14/18 03:10 Problem List - Problems (1) Abdominal pain Assessment/Plan: Likely secondary to Gastroparesis and Cannabis use Reglan Monitor lytes Monitor vitals Advised pt on Cannabis Cessation GI consult Continue Pepcid Diabetic Clear Diet as tolerated Patient reports being seen at [facility] for same, will need to review diagnostic records Stool Cultures-pending Code(s): R10.9 - UNSPECIFIED ABDOMINAL PAIN Qualifiers: Abdominal location: epigastric Qualified Code(s): R10.13 - Epigastric pain (2) Hyperglycemia due to type 1 diabetes mellitus Assessment/Plan: BGMs Appreciate Endocrinology consult Continue Insulin Pump Patient may continue insulin pump Insulin Pump Settings: 12:00A 0.7 12:00P 0.6 06:00P 1.0 BGMs Code(s): E10.65 - TYPE 1 DIABETES MELLITUS WITH HYPERGLYCEMIA (3) Hypothyroidism Code(s): E03.9 - HYPOTHYROIDISM, UNSPECIFIED (4) Diabetic gastroparesis Code(s): E11.43 - TYPE 2 DIABETES W DIABETIC AUTONOMIC (POLY)NEUROPATHY; K31.84 - GASTROPARESIS
[2018-05-14] MEDS: METOCLOPRAMIDE HCL INJECTION 10 MG/2 ML VIAL IVPUSH SCH ×2 (15:14→20:27)
--- NOTE | 2018-05-14 16:59 | CONSULT ---
Consult Consult Specialty:: endocrine Referred by:: ramona estrella md Reason for Consultation:: diabetes mellitus / type 1 - History of Present Illness Chief Complaint: nausea and vomiting History of Present Illness: 42 y/o man with a PMHx of: IDDM (on Insulin Pump), Diabetic Gastroparesis, Nephrolithiasis. Who presents to the ED with epigastric pain, non-bloody emesis , loose stools x several days. Patient reports being seen and treated at [facility] yesterday for the same without improvement. Patient reports taking stool softeners and laxatives for constipation and now has frequent loose non-bloody stools. Patient describes the pain as constant, cramping and burning. 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: Yes: Peripheral Neuropathy Cardio/Vascular: Yes: HTN Gastrointestinal: Yes: Gastritis Renal/: Yes: Renal Calculi Musculoskeletal: Yes: Chronic low back pain Endocrine: Yes: Diabetes Mellitus - Past Surgical History Past Surgical History: Yes: Appendectomy - Alcohol/Substance Use Hx Alcohol Use: No History of Substance Use: reports: Marijuana - Smoking History Smoking history: Former smoker Have you smoked in the past 12 months: No Aproximately how many cigarettes per day: 0 If you are a former smoker, when did you quit?: as a teenager - Social History ADL: Independent Occupation: not employed History of Recent Travel: No Home Medications - Allergies Allergies/Adverse Reactions: Allergies Allergy/AdvReac Type Severity Reaction Status Date / Time quetiapine fumarate Allergy Unknown hypotension Verified 05/14/18 00:22 [From Seroquel] - Home Medications Home Medications: Ambulatory Orders Insulin Pump Syringe, 3 ml [Paradigm] 1 each ASDIR 10/04/13 Pregabalin [Lyrica -] 150 mg PO TID 09/22/14 Levothyroxine [Synthroid -] 112 mcg PO DAILY 05/28/16 Lubiprostone [Amitiza] 24 mcg PO DAILY PRN 06/05/17 Ondansetron [Zofran *Odt*] 8 mg PO PRN 06/05/17 Sennosides [Senna] 8.6 mg PO PRN 06/05/17 Buprenorphine/Naloxone [Suboxone 8Mg/2Mg Sl Film -] 1 each SL Q12H 05/14/18 Metoclopramide HCl [Reglan -] 10 mg PO BID PRN 05/14/18 Ranitidine [Zantac -] 150 mg PO BID 05/14/18 Family Disease History - Family Disease History Other Family History: Cousin - Type I DM. Familal hx- Asthma, Joint Conditons Review of Systems - Review of Systems Constitutional: reports: Lethargy, Weakness Eyes: reports: No Symptoms HENT: reports: No Symptoms Neck: reports: No Symptoms Cardiovascular: reports: Shortness of Breath Respiratory: reports: Exercise Intolerance, SOB on Exertion Gastrointestinal: reports: Constipation, Diarrhea, Nausea Genitourinary: reports: Frequency, Urgency Musculoskeletal: reports: Back Pain, Muscle Weakness Integumentary: reports: No Symptoms Neurological: reports: Numbness, Weakness Endocrine: reports: Unexplained Weight Loss Psychiatric: reports: Altered Sleep Pattern Physical Exam Vital Signs: Vital Signs Temperature 97.6 F 05/14/18 15:14 Pulse Rate 85 05/14/18 15:14 Respiratory Rate 18 05/14/18 15:14 Blood Pressure 170/88 05/14/18 15:14 O2 Sat by Pulse Oximetry (%) 100 05/14/18 05:27 Constitutional: Yes: Anxious Eyes: Yes: EOM Intact HENT: Yes: Normocephalic Neck: Yes: Trachea Midline Cardiovascular: Yes: Regular Rate and Rhythm Respiratory: Yes: CTA Bilaterally Gastrointestinal: Yes: Tenderness, Epigastrium ...Rectal Exam: Yes: Deferred Renal/: Yes: Anuria Breast(s): Yes: WNL Musculoskeletal: Yes: Joint Swelling, Muscle Weakness Extremities: Yes: WNL Neurological: Yes: Alert, Oriented Labs: CBC, BMP 05/14/18 00:30 05/14/18 03:10 Problem List - Problems (1) 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 Code(s): E10.610 - TYPE 1 DIABETES MELLITUS W DIABETIC NEUROPATHIC ARTHROPATHY (2) Abdominal pain Code(s): R10.9 - UNSPECIFIED ABDOMINAL PAIN Qualifiers: Abdominal location: epigastric Qualified Code(s): R10.13 - Epigastric pain (3) Hyperglycemia due to type 1 diabetes mellitus Code(s): E10.65 - TYPE 1 DIABETES MELLITUS WITH HYPERGLYCEMIA (4) Hypothyroidism Code(s): E03.9 - HYPOTHYROIDISM, UNSPECIFIED (5) Abscess of sacrum Code(s): M46.28 - OSTEOMYELITIS OF [place], SACRAL AND SACROCOCCYGEAL REGION (6) Autonomic instability Code(s): G90.9 - DISORDER OF THE AUTONOMIC NERVOUS SYSTEM, UNSPECIFIED (7) Chronic back pain Code(s): M54.9 - DORSALGIA, UNSPECIFIED; G89.29 - OTHER CHRONIC PAIN Qualifiers: Back pain location: low back pain Back pain laterality: bilateral Sciatica presence: without sciatica Qualified Code(s): M54.5 - Low back pain; G89.29 - Other chronic pain (8) Constipation Code(s): K59.00 - CONSTIPATION, UNSPECIFIED Assessment/Plan Current Active Problems Abdominal pain (Acute) Hyperglycemia due to type 1 diabetes mellitus (Acute) Hypothyroidism (Acute) diabetes mellitus neuropathy/ gastroparesis diabetic Abnormal Lab Results 05/14/18 05/14/18 05/14/18 00:30 00:30 00:30 POC VBG pO2 20.9 L Mixed VBG HCO3 25.8 H Sodium 133 L Chloride 96 L Random Glucose 268 H Phosphorus Alkaline Phosphatase 121 H Lipase 64 L Ur Specific [place] Urine Glucose (UA) Urine Ketones U Marijuana (THC) Screen 05/14/18 05/14/18 05/14/18 01:05 03:00 03:10 POC VBG pO2 Mixed VBG HCO3 Sodium Chloride Random Glucose 167 H Phosphorus 2.1 L Alkaline Phosphatase Lipase 52 L Ur Specific [place] 1.007 L Urine Glucose (UA) 3+ H Urine Ketones 2+ H U Marijuana (THC) Screen Positive A* Laboratory Results - last 24 hr 05/14/18 05/14/18 05/14/18 00:30 00:30 00:30 WBC 4.1 RBC 4.33 Hgb 13.3 Hct 38.0 MCV 87.9 MCH 30.8 MCHC 35.0 RDW 13.9 Plt Count 208 D MPV 9.9 Absolute Neuts (auto) 3.4 Neutrophils % 82.8 D Lymphocytes % 10.4 D Monocytes % 5.7 Eosinophils % 0.4 D Basophils % 0.7 Nucleated RBC % 0 VBG pH 7.33 D POC VBG pCO2 49.9 D POC VBG pO2 20.9 L Mixed VBG HCO3 25.8 H Sodium Potassium Chloride Carbon Dioxide Anion Gap BUN Creatinine Creat Clearance w eGFR POC Glucometer Random Glucose Calcium Phosphorus Magnesium 1.9 Total Bilirubin AST ALT Alkaline Phosphatase Creatine Kinase Troponin I Total Protein Albumin Total Amylase Lipase 64 L Urine Color Urine Appearance Urine pH Ur Specific [place] Urine Protein Urine Glucose (UA) Urine Ketones Urine Blood Urine Nitrite Urine Bilirubin Urine Urobilinogen Ur Leukocyte Esterase Opiates Screen Methadone Screen Barbiturate Screen Phencyclidine Screen Ur Amphetamines Screen MDMA (Ecstasy) Screen Benzodiazepines Screen Cocaine Screen U Marijuana (THC) Screen Acetone, Qual Positive moderate 2+ 05/14/18 05/14/18 05/14/18 00:30 00:30 00:30 WBC RBC Hgb Hct MCV MCH MCHC RDW Plt Count MPV Absolute Neuts (auto) Neutrophils % Lymphocytes % Monocytes % Eosinophils % Basophils % Nucleated RBC % VBG pH POC VBG pCO2 POC VBG pO2 Mixed VBG HCO3 Sodium 133 L Potassium 4.2 Chloride 96 L Carbon Dioxide 26 Anion Gap 11 BUN 10 Creatinine 1.1 Creat Clearance w eGFR > 60 POC Glucometer Random Glucose 268 H Calcium 8.7 Phosphorus 3.0 Magnesium Total Bilirubin 0.7 AST 18 ALT 24 Alkaline Phosphatase 121 H Creatine Kinase 144 Troponin I < 0.02 Total Protein 8.2 Albumin 4.2 Total Amylase Lipase Urine Color Urine Appearance Urine pH Ur Specific [place] Urine Protein Urine Glucose (UA) Urine Ketones Urine Blood Urine Nitrite Urine Bilirubin Urine Urobilinogen Ur Leukocyte Esterase Opiates Screen Methadone Screen Barbiturate Screen Phencyclidine Screen Ur Amphetamines Screen MDMA (Ecstasy) Screen Benzodiazepines Screen Cocaine Screen U Marijuana (THC) Screen Acetone, Qual 05/14/18 05/14/18 05/14/18 01:05 02:46 03:00 WBC RBC Hgb Hct MCV MCH MCHC RDW Plt Count MPV Absolute Neuts (auto) Neutrophils % Lymphocytes % Monocytes % Eosinophils % Basophils % Nucleated RBC % VBG pH POC VBG pCO2 POC VBG pO2 Mixed VBG HCO3 Sodium Potassium Chloride Carbon Dioxide Anion Gap BUN Creatinine Creat Clearance w eGFR POC Glucometer [phone] Random Glucose Calcium Phosphorus Magnesium Total Bilirubin AST ALT Alkaline Phosphatase Creatine Kinase Troponin I Total Protein Albumin Total Amylase Lipase Urine Color Colorless Urine Appearance Clear Urine pH 6.0 Ur Specific [place] 1.007 L Urine Protein Negative Urine Glucose (UA) 3+ H Urine Ketones 2+ H Urine Blood Negative Urine Nitrite Negative Urine Bilirubin Negative Urine Urobilinogen Negative Ur Leukocyte Esterase Negative Opiates Screen Negative Methadone Screen Negative Barbiturate Screen Negative Phencyclidine Screen Negative Ur Amphetamines Screen Negative MDMA (Ecstasy) Screen Negative Benzodiazepines Screen Negative Cocaine Screen Negative U Marijuana (THC) Screen Positive A* Acetone, Qual 05/14/18 05/14/18 05/14/18 03:10 03:10 03:10 WBC RBC Hgb Hct MCV MCH MCHC RDW Plt Count MPV Absolute Neuts (auto) Neutrophils % Lymphocytes % Monocytes % Eosinophils % Basophils % Nucleated RBC % VBG pH POC VBG pCO2 POC VBG pO2 Mixed VBG HCO3 Sodium Potassium Chloride Carbon Dioxide Anion Gap BUN Creatinine Creat Clearance w eGFR POC Glucometer Random Glucose Cancelled 167 H Calcium Phosphorus 2.1 L Magnesium 1.8 Total Bilirubin AST ALT Alkaline Phosphatase Creatine Kinase Troponin I Total Protein Albumin Total Amylase 43 Cancelled Lipase 52 L Urine Color Urine Appearance Urine pH Ur Specific [place] Urine Protein Urine Glucose (UA) Urine Ketones Urine Blood Urine Nitrite Urine Bilirubin Urine Urobilinogen Ur Leukocyte Esterase Opiates Screen Methadone Screen Barbiturate Screen Phencyclidine Screen Ur Amphetamines Screen MDMA (Ecstasy) Screen Benzodiazepines Screen Cocaine Screen U Marijuana (THC) Screen Acetone, Qual 05/14/18 05/14/18 05/14/18 03:10 06:15 11:26 WBC RBC Hgb Hct MCV MCH MCHC RDW Plt Count MPV Absolute Neuts (auto) Neutrophils % Lymphocytes % Monocytes % Eosinophils % Basophils % Nucleated RBC % VBG pH POC VBG pCO2 POC VBG pO2 Mixed VBG HCO3 Sodium Potassium Chloride Carbon Dioxide Anion Gap BUN Creatinine Creat Clearance w eGFR POC Glucometer 208 215 Random Glucose Calcium Phosphorus Magnesium Total Bilirubin AST ALT Alkaline Phosphatase Creatine Kinase Troponin I Total Protein Albumin Total Amylase Lipase Cancelled Urine Color Urine Appearance Urine pH Ur Specific [place] Urine Protein Urine Glucose (UA) Urine Ketones Urine Blood Urine Nitrite Urine Bilirubin Urine Urobilinogen Ur Leukocyte Esterase Opiates Screen Methadone Screen Barbiturate Screen Phencyclidine Screen Ur Amphetamines Screen MDMA (Ecstasy) Screen Benzodiazepines Screen Cocaine Screen U Marijuana (THC) Screen Acetone, Qual plan: bgm qid novolog via insulin pump lyrica for neuropathy neurology consult gi consult zofran for nausea
[2018-05-14] MEDS: ACETAMINOPHEN 325 MG TABLET (FP) PO PRN (17:08)
[2018-05-14] MEDS: PREGABALIN 75 MG CAPSULE PO SCH (21:00)
[2018-05-15] MEDS: ACETAMINOPHEN 325 MG TABLET (FP) PO PRN ×3 (00:35→20:35)
[2018-05-15] MEDS: METOCLOPRAMIDE HCL INJECTION 10 MG/2 ML VIAL IVPUSH SCH ×4 (02:00→20:37)
[2018-05-15] MEDS ORDERED: MAG HYDROX/AL HYDROX/SIMETH 30 ML UNIT-DOSE CUP PO ONE (02:33)
[2018-05-15] MEDS: PREGABALIN 75 MG CAPSULE PO SCH ×3 (06:10→22:23)
[2018-05-15] MEDS: LEVOTHYROXINE NA 112 MCG TABLET (FP) PO SCH (06:10)
[2018-05-15 07:51] LABS: BASO % 1.1 % (0-2.0); EOS % 2.3 % (0-4.5); HEMATOCRIT 40.6 % (35.4-49); HEMOGLOBIN 13.4 GM/dL (11.7-16.9); LYMPH % 38.2 % (8-40); MCH 29.1 pg (25.7-33.7); MEAN CELL VOLUME 88.2 fl (80-96); MEAN PLT VOLUME 9.9 fl (7.5-11.1); MONO % 11.6 % (3.8-10.2); NEUT % 46.8 % (42.8-82.8); PLATELET COUNT 213 K/MM3 (134-434); RBC 4.61 M/mm3 (4.00-5.60); RDW 14.1 % (11.9-15.9); WHITE BLOOD COUNT 4.2 K/mm3 (4.0-10.0)
[2018-05-15 08:31] LABS: ANION GAP 10 MMOL/L (8-16); BLOOD UREA NITROGEN 5 mg/dL (7-18); CALCIUM 9.3 mg/dL (8.5-10.1); CHLORIDE 98 mmol/L (98-107); CO2 28 mmol/L (21-32); CREATININE 0.9 mg/dL (0.55-1.3); GLUCOSE,RANDOM 97 mg/dL (74-106); POTASSIUM 3.4 mmol/L (3.5-5.1); SODIUM 136 mmol/L (136-145)
[2018-05-15] MEDS: FAMOTIDINE 20 MG/50 ML IVPB 20 MG/50 ML MG IVPB SCH ×2 (09:00→22:23)
--- NOTE | 2018-05-15 11:26 | PN ---
Progress Note, Physician Chief Complaint: Diabetic gastroperesis History of Present Illness: NAD c/o of nausea On reglan, pantoprazole, zofran, [place] abd/pelvis negative - Current Medication List Current Medications: Active Medications Acetaminophen (Tylenol -) 650 mg PO Q6H PRN PRN Reason: PAIN LEVEL 6-10 Last Admin: 05/15/18 00:35 Dose: 650 mg Famotidine/Sodium Chloride (Pepcid 20 Mg Premixed Ivpb -) 20 mg in 50 mls @ 100 mls/hr IVPB BID [facility] Last Admin: 05/15/18 09:00 Dose: 100 mls/hr Levothyroxine Sodium (Synthroid -) 112 mcg PO DAILY@0700 [facility] Last Admin: 05/15/18 06:10 Dose: 112 mcg Metoclopramide HCl (Reglan Injection -) 10 mg IVPUSH Q6H-IV [facility] Last Admin: 05/15/18 08:57 Dose: 10 mg Potassium Chloride (K-Dur -) 20 meq PO ONCE ONE Stop: 05/15/18 11:20 Pregabalin (Lyrica -) 150 mg PO TID [facility] Last Admin: 05/15/18 06:10 Dose: 150 mg - Objective Vital Signs: Vital Signs Temperature 97.9 F 05/15/18 07:17 Pulse Rate 85 05/15/18 07:17 Respiratory Rate 20 05/15/18 07:17 Blood Pressure 142/92 05/15/18 07:17 O2 Sat by Pulse Oximetry (%) 100 05/14/18 21:00 Constitutional: Yes: Well Nourished, No Distress, Calm Cardiovascular: Yes: Regular Rate and Rhythm Respiratory: Yes: Regular Gastrointestinal: Yes: Normal Bowel Sounds, Soft Musculoskeletal: Yes: WNL Extremities: Yes: WNL Edema: No Peripheral Pulses WNL: Yes Neurological: Yes: Alert, Oriented Psychiatric: Yes: Alert, Oriented Labs: CBC, BMP 05/15/18 06:15 05/15/18 06:15 Problem List - Problems (1) Abdominal pain Assessment/Plan: -Improved -Advance diet to diabetic/low sodium diet -CT abd/pel unremarkable Code(s): R10.9 - UNSPECIFIED ABDOMINAL PAIN Qualifiers: Abdominal location: epigastric Qualified Code(s): R10.13 - Epigastric pain (2) Diabetic gastroparesis Assessment/Plan: -may resume using his insulin pump -Seen by Endocrinology -reglan 10 mg po Q6H -Zofran 8 mg po TID PRN -Pantoprazole 40 mg po daily -Mylanta 30 ml Q6H PRN Code(s): E11.43 - TYPE 2 DIABETES W DIABETIC AUTONOMIC (POLY)NEUROPATHY; K31.84 - GASTROPARESIS (3) Hypothyroidism Assessment/Plan: -Increase levothyroxine to 125 mcg po daily from 112 mcg -recheck thyroid profile in 4 weeks Code(s): E03.9 - HYPOTHYROIDISM, UNSPECIFIED (4) IDDM (insulin dependent diabetes mellitus) Assessment/Plan: -check A1c -Insulin pump -BGM AC HS -Endocrinology on board -Diabetic/low sodium diet - Code(s): E11.9 - TYPE 2 DIABETES MELLITUS WITHOUT COMPLICATIONS; Z79.4 - CORRECTION (CURRENT) USE OF INSULIN (5) Nausea and vomiting Assessment/Plan: -no vomiting anymore -mild nausea -reglan 10 mg po Q6H -Zofran 8 mg po TID PRN -Pantoprazole 40 mg po daily -Mylanta 30 ml Q6H PRN Code(s): R11.2 - NAUSEA WITH VOMITING, UNSPECIFIED Assessment/Plan see problem list self ambulatory d/c home in AM if feeling better
[2018-05-15] MEDS ORDERED: POTASSIUM CHLORIDE TABS 20 MEQ TABLET.ER (FP) PO ONE (11:45)
[2018-05-15] MEDS ORDERED: ONDANSETRON 4 MG/2 ML VIAL IVPB PRN (11:55)
[2018-05-15] MEDS: MAG HYDROX/AL HYDROX/SIMETH 30 ML UNIT-DOSE CUP PO PRN (12:25)
[2018-05-16] MEDS: MAG HYDROX/AL HYDROX/SIMETH 30 ML UNIT-DOSE CUP PO PRN ×2 (01:01→09:05)
[2018-05-16] MEDS: METOCLOPRAMIDE HCL INJECTION 10 MG/2 ML VIAL IVPUSH SCH ×4 (02:09→21:43)
[2018-05-16] MEDS: ACETAMINOPHEN 325 MG TABLET (FP) PO PRN ×3 (02:09→20:26)
[2018-05-16] MEDS: PREGABALIN 75 MG CAPSULE PO SCH ×3 (06:21→21:44)
[2018-05-16] MEDS: LEVOTHYROXINE NA 112 MCG TABLET (FP) PO SCH (06:21)
[2018-05-16 07:36] LABS: BASO % 1.2 % (0-2.0); EOS % 2.6 % (0-4.5); HEMATOCRIT 39.5 % (35.4-49); LYMPH % 33.8 % (8-40); MCHC 32.9 g/dl (32.0-35.9); MEAN CELL VOLUME 88.1 fl (80-96); MEAN PLT VOLUME 9.5 fl (7.5-11.1); MONO % 12.4 % (3.8-10.2); PLATELET COUNT 194 K/MM3 (134-434); RBC 4.48 M/mm3 (4.00-5.60); RDW 13.9 % (11.9-15.9); WHITE BLOOD COUNT 3.7 K/mm3 (4.0-10.0)
[2018-05-16 08:26] LABS: ALBUMIN 3.9 g/dl (3.4-5.0); ALK PHOS 98 U/L (45-117); ANION GAP 9 MMOL/L (8-16); BILIRUBIN,TOTAL 0.4 mg/dL (0.2-1); BLOOD UREA NITROGEN 11 mg/dL (7-18); CALCIUM 8.8 mg/dL (8.5-10.1); CHLORIDE 100 mmol/L (98-107); CO2 30 mmol/L (21-32); CREATININE 0.9 mg/dL (0.55-1.3); GLUCOSE,RANDOM 121 mg/dL (74-106); POTASSIUM 3.7 mmol/L (3.5-5.1); SGOT/AST 14 U/L (15-37); SGPT/ALT 22 U/L (13-61); SODIUM 139 mmol/L (136-145); TOT PROT 7.2 g/dl (6.4-8.2)
--- NOTE | 2018-05-16 08:48 | PN ---
Progress Note, Physician - Current Medication List Current Medications: Active Medications Acetaminophen (Tylenol -) 650 mg PO Q6H PRN PRN Reason: PAIN LEVEL 6-10 Last Admin: 05/16/18 02:09 Dose: 650 mg Al Hydroxide/Mg Hydroxide (Mylanta Oral Suspension -) 30 ml PO Q6H PRN PRN Reason: DYSPEPSIA Last Admin: 05/16/18 01:01 Dose: 30 ml Famotidine/Sodium Chloride (Pepcid 20 Mg Premixed Ivpb -) 20 mg in 50 mls @ 100 mls/hr IVPB BID [facility] Last Admin: 05/15/18 22:23 Dose: 100 mls/hr Levothyroxine Sodium (Synthroid -) 112 mcg PO DAILY@0700 [facility] Last Admin: 05/16/18 06:21 Dose: 112 mcg Metoclopramide HCl (Reglan Injection -) 10 mg IVPUSH Q6H-IV [facility] Last Admin: 05/16/18 02:09 Dose: 10 mg Ondansetron HCl (Zofran Injection) 8 mg IVPB Q8H PRN PRN Reason: NAUSEA Last Admin: 05/15/18 12:25 Dose: 8 mg Pregabalin (Lyrica -) 150 mg PO TID [facility] Last Admin: 05/16/18 06:21 Dose: 150 mg - Objective Vital Signs: Vital Signs Temperature 98 F 05/16/18 06:00 Pulse Rate 89 05/16/18 06:00 Respiratory Rate 18 05/16/18 06:00 Blood Pressure 141/89 05/16/18 06:00 O2 Sat by Pulse Oximetry (%) 98 05/15/18 21:00 Cardiovascular: Yes: Regular Rate and Rhythm Respiratory: Yes: Regular, CTA Bilaterally Gastrointestinal: Yes: Normal Bowel Sounds, Soft, Tenderness, Epigastrium (MILD) Labs: CBC, BMP 05/16/18 07:00 05/16/18 07:00 Problem List - Problems (1) Abdominal pain Assessment/Plan: Likely secondary to Gastroparesis and Cannabis use Reglan Monitor lytes Monitor vitals Advised pt on Cannabis Cessation GI consult Continue Pepcid Diabetic Diet Patient reports being seen at [facility] for same, will need to review diagnostic records Stool Cultures-pending Code(s): R10.9 - UNSPECIFIED ABDOMINAL PAIN Qualifiers: Abdominal location: epigastric Qualified Code(s): R10.13 - Epigastric pain (2) Hyperglycemia due to type 1 diabetes mellitus Assessment/Plan: BGMs Appreciate Endocrinology consult Continue Insulin Pump Patient may continue insulin pump Insulin Pump Settings: 12:00A 0.7 12:00P 0.6 06:00P 1.0 BGMs Code(s): E10.65 - TYPE 1 DIABETES MELLITUS WITH HYPERGLYCEMIA (3) Hypothyroidism Code(s): E03.9 - HYPOTHYROIDISM, UNSPECIFIED (4) Diabetic gastroparesis Code(s): E11.43 - TYPE 2 DIABETES W DIABETIC AUTONOMIC (POLY)NEUROPATHY; K31.84 - GASTROPARESIS
[2018-05-16] MEDS: FAMOTIDINE 20 MG/50 ML IVPB 20 MG/50 ML MG IVPB SCH ×2 (09:06→21:44)
[2018-05-16] MEDS ORDERED: PT OWN MED DRAWER 7, Y5N ONE (10:59)
--- NOTE | 2018-05-16 16:57 | CON.GI ---
Consult Consult Specialty:: GI - History of Present Illness History of Present Illness: 42 y/o man with a PMHx of: IDDM (on Insulin Pump), Diabetic Gastroparesis, Nephrolithiasis. 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: Peripheral Neuropathy Cardio/Vascular: Yes: HTN Gastrointestinal: Yes: Gastritis Renal/: Yes: Renal Calculi Musculoskeletal: Yes: Chronic low back pain Endocrine: Yes: Diabetes Mellitus - Past Surgical History Past Surgical History: Yes: Appendectomy - Alcohol/Substance Use Hx Alcohol Use: No History of Substance Use: reports: Marijuana - Smoking History Smoking history: Former smoker Have you smoked in the past 12 months: No Aproximately how many cigarettes per day: 0 If you are a former smoker, when did you quit?: as a teenager - Social History ADL: Independent Occupation: not employed History of Recent Travel: No Home Medications - Allergies Allergies/Adverse Reactions: Allergies Allergy/AdvReac Type Severity Reaction Status Date / Time quetiapine fumarate Allergy Unknown hypotension Verified 05/14/18 00:22 [From Seroquel] - Home Medications Home Medications: Ambulatory Orders Insulin Pump Syringe, 3 ml [Paradigm] 1 each [facility] ASDIR 10/04/13 Pregabalin [Lyrica -] 150 mg PO TID 09/22/14 Levothyroxine [Synthroid -] 112 mcg PO DAILY 05/28/16 Lubiprostone [Amitiza] 24 mcg PO DAILY PRN 06/05/17 Ondansetron [Zofran *Odt*] 8 mg PO PRN 06/05/17 Sennosides [Senna] 8.6 mg PO PRN 06/05/17 Buprenorphine/Naloxone [Suboxone 8Mg/2Mg Sl Film -] 1 each SL Q12H 05/14/18 Ranitidine [Zantac -] 150 mg PO BID 05/14/18 Metoclopramide HCl [Reglan -] 10 mg PO Q6H PRN #120 tablet 05/15/18 Family Disease History - Family Disease History Other Family History: Cousin - Type I DM. Familal hx- Asthma, Joint Conditons Physical Exam-GI Vital Signs: Vital Signs Temperature 98 F 05/16/18 10:00 Pulse Rate 86 05/16/18 10:00 Respiratory Rate 18 11/18 10:00 Blood Pressure 140/80 05/16/18 10:00 O2 Sat by Pulse Oximetry (%) 99 05/16/18 09:00 Constitutional: Yes: Well Nourished HENT: Yes: Atraumatic Neck: Yes: Supple Cardiovascular: Yes: Regular Rate and Rhythm Respiratory: Yes: Regular ...Auscultate: Yes: Normoactive Bowel Sounds ...Palpate: Yes: Soft, Tenderness, Epigastium. No: Firm/Rigid, Guarding, Hepatomegaly, Mass, Pulsatile Mass, Splenomegaly, Tenderness Labs: CBC, BMP 05/16/18 07:00 05/16/18 07:00 Problem List - Problems (1) Diabetic gastroparesis Assessment/Plan: r/o pepetic ulcer disease R> will need EGD as an outpatient' mainatain in Zofran 4mg tid reglan 5mg 30 min ac Protonix 40mg daily patienr was made aware to follow up Code(s): E11.43 - TYPE 2 DIABETES W DIABETIC AUTONOMIC (POLY)NEUROPATHY; K31.84 - GASTROPARESIS
[2018-05-16] MEDS ORDERED: ONDANSETRON 4 MG/2 ML VIAL IVPB PRN (17:40)
[2018-05-16] MEDS: ONDANSETRON 4 MG/2 ML VIAL IVPB SCH ×2 (17:54→21:45)
[2018-05-17] MEDS: METOCLOPRAMIDE HCL INJECTION 10 MG/2 ML VIAL IVPUSH SCH ×2 (02:43→09:37)
[2018-05-17] MEDS: ONDANSETRON 4 MG/2 ML VIAL IVPB SCH ×2 (02:43→05:45)
[2018-05-17] MEDS: PREGABALIN 75 MG CAPSULE PO SCH (05:44)
[2018-05-17] MEDS ORDERED: LEVOTHYROXINE NA 125 MCG TABLET (FP) PO SCH (07:00)
--- NOTE | 2018-05-17 09:12 | DS ---
Physical Examination Vital Signs: Vital Signs Temperature 98.1 F 05/17/18 06:29 Pulse Rate 83 05/17/18 06:29 Respiratory Rate 20 05/17/18 06:29 Blood Pressure 138/84 05/17/18 06:29 O2 Sat by Pulse Oximetry (%) 99 05/16/18 21:00 Cardiovascular: Yes: Regular Rate and Rhythm Respiratory: Yes: Regular, CTA Bilaterally Gastrointestinal: Yes: Normal Bowel Sounds, Soft. 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 (Acute) Hospital Course: Problems (1) Abdominal pain Assessment/Plan: -Improved -Advance diet to diabetic/low sodium diet -CT abd/pel unremarkable Code(s): R10.9 - UNSPECIFIED ABDOMINAL PAIN Qualifiers: Abdominal location: epigastric Qualified Code(s): R10.13 - Epigastric pain (2) Diabetic gastroparesis Assessment/Plan: -may resume using his insulin pump -Seen by Endocrinology -reglan 10 mg po Q6H -Zofran 8 mg po TID PRN -Pantoprazole 40 mg po daily -Mylanta 30 ml Q6H PRN Code(s): E11.43 - TYPE 2 DIABETES W DIABETIC AUTONOMIC (POLY)NEUROPATHY; K31.84 - GASTROPARESIS (3) Hypothyroidism Assessment/Plan: -Increase levothyroxine to 125 mcg po daily from 112 mcg -recheck thyroid profile in 4 weeks Code(s): E03.9 - HYPOTHYROIDISM, UNSPECIFIED (4) IDDM (insulin dependent diabetes mellitus) Assessment/Plan: -check A1c -Insulin pump -BGM AC HS -Endocrinology on board -Diabetic/low sodium diet - Code(s): E11.9 - TYPE 2 DIABETES MELLITUS WITHOUT COMPLICATIONS; Z79.4 - SNF (CURRENT) USE OF INSULIN (5) Nausea and vomiting Assessment/Plan: -no vomiting anymore -mild nausea -reglan 10 mg po Q6H -Zofran 8 mg po TID PRN -Pantoprazole 40 mg po daily -Mylanta 30 ml Q6H PRN Code(s): R11.2 - NAUSEA WITH VOMITING, UNSPECIFIED Assessment/Plan see problem list self ambulatory d/c home AND FOLLOW UP WITH DR PULLIAM Condition: Stable - Instructions Diet, Activity, Other Instructions: Please return to the emergency department with any new or worsening symptoms or concerns. Please follow up with your primary care physician within 72 hours. Referrals: Augustus Grewal MD [Staff Physician] - Ravi Pulliam MD [Staff Physician] - - Home Medications Comprehensive Discharge Medication List: Ambulatory Orders Insulin Pump Syringe, 3 ml [Paradigm] 1 each ASDIR 10/04/13 Pregabalin [Lyrica -] 150 mg PO TID 09/22/14 Lubiprostone [Amitiza] 24 mcg PO DAILY PRN 06/05/17 Ondansetron [Zofran *Odt*] 8 mg PO PRN 06/05/17 Sennosides [Senna] 8.6 mg PO PRN 06/05/17 Buprenorphine/Naloxone [Suboxone 8Mg/2Mg Sl Film -] 1 each SL Q12H 05/14/18 Ranitidine [Zantac -] 150 mg PO BID 05/14/18 Metoclopramide HCl [Reglan -] 10 mg PO Q6H PRN #120 tablet 05/15/18 Levothyroxine [Synthroid -] 125 mcg PO DAILY@0700 #30 tablet 05/17/18
[2018-05-17] MEDS: FAMOTIDINE 20 MG/50 ML IVPB 20 MG/50 ML MG IVPB SCH (09:37)
[2018-05-17 10:35] VITALS: BP 146/83; PULSE 100; TEMP 98
== END 2018-05-17 12:36 | disposition home or self-care (01) | DRG 74 ==
LOC: JER 23:53 → JERBED 05-14 02:39 → J8W 05-14 04:59 → OBSVTOIN 05-16 10:12
PROVIDERS: ADMIT Internal Medicine; ATTEND Family Medicine
DX: E10.43 Type 1 diabetes mellitus with diabetic autonomic (poly)neuropathy (principal); K27.9 Peptic ulcer, site unspecified, unspecified as acute or chronic, without hemorrhage or perforation; E10.65 Type 1 diabetes mellitus with hyperglycemia; R11.2 Nausea with vomiting, unspecified; E86.0 Dehydration; E03.9 Hypothyroidism, unspecified; D64.9 Anemia, unspecified; K31.84 Gastroparesis; R10.13 Epigastric pain; Z79.4 Long term (current) use of insulin
CPT/HCPCS: 36415; 71045-TC-FY; 74177-TC; 80048; 80053; 80307; 81003; 82009; 82150; 82550; 82553; 82803; 82947; 82962; 83036; 83690; 83735; 84100; 84439; 84443; 84484; 85025; 87040; 93005; 93010; 99284-25; G0378; J7030

== ENCOUNTER 2019-04-12 18:10 | Inpatient (IN) | payer OTHER ==
--- NOTE | 2019-04-12 18:40 | PDOC ---
History of Present Illness - General Chief Complaint: Blood Sugar Problem Stated Complaint: DIABETIC Time Seen by Provider: 04/12/19 18:37 History Source: Patient Exam Limitations: No Limitations - History of Present Illness Initial Comments: HPI: 43 y/o male presenting to [facility] ER complaining of elevated blood sugar after his insulin pump was accidentally dislocated last evening. Was able to replace the device around 6pm and administered 14 units of Humalog. Endorses diffuse chest pain/tightness with shortness of breath. Described as a muscle tightness/spasm. Occurs at the same time as his chronic lower back spasm. 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 Medical Hx: - T1DM managed with Humalog pump - Diabetic retinopathy - Peripheral neuropathy - Gastroparesis - Chronic lower back pain - Neurogenic bladder Surgical Hx: - Appendectomy - Bladder Repair - L shoulder decompression x3 - Bladder stimulator placement Review of Systems: In addition to that documented in the HPI above, the additional ROS was obtained : Constitutional- Denies fevers or chills Head- Denies vision changes ENMT- Denies sore throat CV- Per HPI Resp- Denies coughing or sneezing GI- Denies vomiting or diarrhea - Denies painful urination, hematuria MSK- Denies recent trauma Skin- Denies new rashes Neuro- Denies new numbness or tingling or weakness Endocrine- Denies polyuria Heme- Denies bleeding or bruising Physical Examination: Constitutional- Puny appearing adult male in no acute distress. Found semi- fowlers on hospital bed. Answered all questions appropriately and completely. Head- Normocephalic. No obvious external signs of trauma. Cardiovascular / Chest- Regular rate and regular rhythm. No murmur, rubs, clicks , or gallops. Peripheral pulses- radial pulses full. No pretibial edema. Respiratory- Breathing unlabored. Equal chest rise and fall. Clear to auscultation bilaterally. No stridor, no wheezing, no rhonchi. Gastrointestinal- abdomen is tender in epigastric region without rebound or guarding. Globally, abdomen is soft and nondistended. Insulin pump placed in LLQ. Neuro- Alert and oriented x4. Moving all four extremities spontaneously. Skin- Pilonidal cyst to top of gluteal cleft without overlying erythema or purulent discharge. 2-3mm area of fluctuance without erythema or drainage to left inguinal fold. Post-op site to right gluteal region; closed, clean, dry, and intact. Psych- Affect- appropriate. Mood- normal. Speech was non-labored, non- pressured. MDM: *Reviewed vital signs, nursing notes, and prior visit documentation (if available). 43 y/o male presenting with hyperglycemia and chest pain. Also noted inguinal abscess. Afebrile. Vitals unremarkable for hypotension or tachycardia. Physical exam as described above. EKG unremarkable for ischemic findings. Initial troponin negative. Three hour trop ordered. CMP unremarkable for significant electrolyte derangement. JEFFERY likely from dehydration. Bicard was normal. VBG unremarkable for acidosis. Beta- hydroxybutyrate elevated. Low suspicion for DKA. Possible dehydration versus poor adherence to insulin regimen. Pt's BGL has trended down appropriately following his home insulin administration. Will hold further insulin at this time. Ordered 2L LR IVFB. L&D performed on inguinal abscess. See procedure section. Ordered IV Clindamycin for prophylaxis given diabetes and recent h/o of soft tissue infection following bladder stimulator battery change. Will admit pt for GILBERTO given poorly controlled diabetes. 12 Apr 2019 21:52 PM In person discussion with CONFERENCE SERVICES DIRECTOR/CARMEN Saxena. Verbally appraised of the pts HPI, ED course, and current plan of management. Will admit pt to telemetry for attending Dr. Acosta. Repeat chemistry and troponin pending at time of admission. Aaron Kirkland M.D., PGY2 Emergency Medicine Resident Past History - Past Medical History Allergies/Adverse Reactions: Allergies Allergy/AdvReac Type Severity Reaction Status Date / Time quetiapine fumarate Allergy Unknown hypotension Verified 05/14/18 00:22 [From Seroquel] Home Medications: Ambulatory Orders Insulin Pump Syringe, 3 ml [Paradigm] 1 each ASDIR 10/04/13 Pregabalin [Lyrica -] 150 mg PO TID 09/22/14 Lubiprostone [Amitiza] 24 mcg PO DAILY PRN 06/05/17 Ondansetron [Zofran *Odt*] 8 mg PO PRN 06/05/17 Sennosides [Senna] 8.6 mg PO PRN 06/05/17 Buprenorphine/Naloxone [Suboxone 8Mg/2Mg Sl Film -] 1 each SL Q12H 05/14/18 Ranitidine [Zantac -] 150 mg PO BID 05/14/18 Metoclopramide HCl [Reglan -] 10 mg PO Q6H PRN #120 tablet 05/15/18 Levothyroxine [Synthroid -] 125 mcg PO DAILY@0700 #30 tablet 05/17/18 Anemia: Yes Asthma: No Cancer: No Cardiac Disorders: Yes (HEART MURMUR A CHILD; NO MEDS) CVA: No COPD: No CHF: No Dementia: No Diabetes: Yes (IDDM,insulin pump) GI Disorders: Yes (gastroparesis) Disorders: Yes (indweling urinary catherer, prostatic hypertrophy) HTN: Yes Hypercholesterolemia: Yes Liver Disease: No Psychiatric Problems: Yes (depression) Seizures: No Thyroid Disease: Yes - Surgical History Abdominal Surgery: No Appendectomy: Yes (age 27) Cardiac Surgery: No Cholecystectomy: No Lung Surgery: No Neurologic Surgery: No Orthopedic Surgery: Yes (Trigger finger release, arthroscopy for bone spur L shoulder) - Immunization History Immunization Up to Date: Yes - Psycho Social/Smoking Cessation Hx Smoking Status: No Smoking History: Never smoked Have you smoked in the past 12 months: No Number of Cigarettes Smoked Daily: 0 If you are a former smoker, when did you quit?: as a teenager Cigars Per Day: 0 Information on smoking cessation initiated: No Hx Alcohol Use: No Drug/Substance Use Hx: No Substance Use Type: None Hx Substance Use Treatment: No *Physical Exam - Vital Signs Last Vital Signs Temp Pulse Resp BP Pulse Ox 129/82 04/12/19 18:23 Procedures - Incision and Drainage I&D Site: Left: Groin Betadine cleansed: Yes Anesthesia: 1% Lidocaine w/ Epi Volume(ml): 2 Blade Size: 10 Attempts: 1 Plain Packing: No Complications: none Dressing: Yes ED Treatment Course - LABORATORY CBC & Chemistry Diagram: 04/12/19 18:37 04/12/19 18:37 Discharge - Discharge Information Problems reviewed: Yes Clinical Impression/Diagnosis: Hyperglycemia due to type 1 diabetes mellitus, Elevated beta-hydroxybutyrate, Inguinal abscess, Chest pain at rest, Shortness of breath, JEFFERY (acute kidney injury) Condition: Stable - Admission Yes - Follow up/Referral - Patient Discharge Instructions - Post Discharge Activity
[2019-04-12] MEDS ORDERED: LACTATED RINGERS SOLUTION 1000 ML INFUS.BAG IV ONE ×2 (18:44→21:08)
[2019-04-12 18:50] LABS: BASO % 0.7 % (0-2.0); EOS % 0.9 % (0-4.5); HEMATOCRIT 40.2 % (35.4-49); HEMOGLOBIN 13.4 GM/dL (11.7-16.9); LYMPH % 11.3 % (8-40); MCH 29.6 pg (25.7-33.7); MCHC 33.4 g/dl (32.0-35.9); MEAN CELL VOLUME 88.6 fl (80-96); MEAN PLT VOLUME 9.9 fl (7.5-11.1); MONO % 6.8 % (3.8-10.2); NEUT % 80.3 % (42.8-82.8); PLATELET COUNT 221 K/MM3 (134-434); RBC 4.54 M/mm3 (4.00-5.60); RDW 13.2 % (11.9-15.9); WHITE BLOOD COUNT 5.6 K/mm3 (4.0-10.0)
[2019-04-12 19:02] LABS: VENOUS PC02 36.5 mmHg (38-52); VENOUS PH 7.41 (7.31-7.41)
[2019-04-12 19:04] LABS: VENOUS PO2 < 49 mmHg (28-48)
[2019-04-12 19:26] LABS: ALK PHOS 170 U/L (45-117); ANION GAP 11 MMOL/L (8-16); BILIRUBIN,TOTAL 1.3 mg/dL (0.2-1); CALCIUM 9.7 mg/dL (8.5-10.1); CHLORIDE 98 mmol/L (98-107); CO2 23 mmol/L (21-32); CREATININE 1.4 mg/dL (0.55-1.3); POTASSIUM 4.1 mmol/L (3.5-5.1); SGOT/AST 17 U/L (15-37); SGPT/ALT 27 U/L (13-61); SODIUM 133 mmol/L (136-145); TOT PROT 7.3 g/dl (6.4-8.2)
[2019-04-12 19:29] LABS: GLUCOSE,RANDOM 532 mg/dL (74-106)
[2019-04-12] MEDS ORDERED: CLINDAMYCIN 600MG PREMIX IVPB 600 MG/50 ML BAG IVPB ONE ×2 (21:01→21:21)
[2019-04-12] MEDS ORDERED: LIDOCAINE 1%/EPI 1:100000 (20 ML MULTI DOSE VIAL) INF ONE (21:03)
--- NOTE | 2019-04-12 21:06 | PDOC ---
Attending Attestation - Resident Resident Name: Aaron Kirkland - ED Attending Attestation I have performed the following: I have examined & evaluated the patient, The case was reviewed & discussed with the resident, I agree w/resident's findings & plan, Exceptions are as noted - HPI HPI: 04/12/19 21:00 43-year-old diabetic type I since the age of 4 neurogenic bladder depression here today complaining of nausea high sugar and chest pain. Patient states that he has a pump which is external which she inserts into the subcu and last night he was sleeping the sticker and the attachment site came loose therefore he was not receiving his insulin during the night today when he felt nauseous like his sugar may be high he checked her sugar and his glucometer was reading high states that he has been not eating much lately has been suffering from depression and is undergoing stress as he is recently single and has a ill pet that requires a lot of care was recently treated for a pilonidal cyst and infected pump placement on his right hip in addition to date he is complaining of left groin fluctuant area where he is concerned there may be another pocket of infection. Denies any fever or chills but has been having temps in the 99 range. No vomiting in addition he is complaining of pressure-like chest pain he also has chronic back pain which she states gets worse when he sugars are high. Does have a history of renal colic but states his pain is not similar to his previous kidney stones when he found his sugar was high at 6 PM he gave himself 14 units of Humalog - Physicial Exam PE: 04/12/19 21:02 Awake alert in no acute distress lungs are clear bilaterally heart is regular without murmurs rubs or gallops abdomen is soft nontender left inguinal crease there is a 1 x 1 cm area of fluctuance no surrounding erythema or crepitus. Examination of the pilonidal cyst scar shape shows a scar but no recurrent fluctuance. No erythema no redness the pump is inserted into the subcu of his right thigh it appears to be attached there is no surrounding redness or signs of infection. Neurologically the patient is awake alert and oriented x3. Psychiatric patient does have somewhat of a depressed or apathetic affect. Is poorly kempt, denies any homicidal suicidal ideations does report decreased appetite , - Medical Decision Making 04/12/19 21:03 43-year-old male type I diabetic depression her genic bladder and multiple skin infections here with complaints of nausea high sugars and chest pain in addition to a infection in his left groin. Plan rule out DKA CBC CMP beta hydroxybutyrate VBG EKG chest x-ray ultrasound was performed to the left inguinal crease area it shows a pocket of collection which require I&D due to the fact the patient is diabetic he will also be given IV clindamycin. Depression: Patient does appear to be with somewhat depressed affect and apathetic. With some self-neglect however he denies any suicidal homicidal ideations he is currently taking his medication Cymbalta Chest pain patient is high risk for ACS due to his long-standing diabetes for sugar control will do a troponin EKG chest x-ray will likely require admission to telemetry to rule out ACS Patient beta hydroxybutyrate is elevated however his gap is normal and his pH is normal. He was given IV hydration of 2 L his repeat sugar is was in the 200 range. He will be admitted for rule out ACS for his chest pain I&D performed of the left groin and given IV antibiotics Heart Score/ECG Review #1 General ECG Interpretation: Sinus Rhythm, Normal Rate (TW flattened III, AVF.), Normal Intervals, No acute ischemic changes
[2019-04-12] MEDS ORDERED: LIDOCAINE 2%/EPINEPHRINE 1:100000 (50 ML MD VIAL) INF ONE (21:15)
[2019-04-12] MEDS ORDERED: LIDOCAINE 1%/EPI 1:100000 (20 ML MULTI DOSE VIAL) ONE (21:20)
[2019-04-12 22:20] LABS: ANION GAP 6 MMOL/L (8-16); BLOOD UREA NITROGEN 18.1 mg/dL (7-18); CALCIUM 9.3 mg/dL (8.5-10.1); CHLORIDE 100 mmol/L (98-107); CO2 29 mmol/L (21-32); CREATININE 1.2 mg/dL (0.55-1.3); GLUCOSE,RANDOM 247 mg/dL (74-106); POTASSIUM 3.4 mmol/L (3.5-5.1); SODIUM 136 mmol/L (136-145)
--- NOTE | 2019-04-12 22:31 | HP ---
Admitting History and Physical - Primary Care Physician PCP: Dr. Acosta - Admission Chief Complaint: high blood sugar History of Present Illness: 43 year old male with PMHx of Type I DM, Diabetic retinopathy/neuropathy, Gastroparesis, chronic low back and Neurogenic bladder arrived to ED with complains of elevated blood sugar after his insulin pump was accidentally dislocated last evening, accoridng to patient he replace the device around 6pm and administered 14 units of Humalog. patient also complains of mid-chest pain with sob (states chronic in nature gets on/off feels like a muscle tightness/ knot). Patient denies fever, chills, N/V, constipation, diarrhea, urinary symptoms. History Source: Patient Limitations to Obtaining History: No Limitations - Past Medical History BUSINESS LIBRARIAN: Yes: Peripheral Neuropathy Cardiovascular: Yes: HTN, Hyperlipdemia Gastrointestinal: Yes: Gastritis Heme/Onc: Yes: Anemia Psych: Yes: Depression Musculoskeletal: Yes: Chronic low back pain Endocrine: Yes: Diabetes Mellitus - Past Surgical History Past Surgical History: Yes: Appendectomy Additional Past Surgical History: - Appendectomy, Bladder Repair, L shoulder decompression x3 and Bladder stimulator placement - Smoking History Smoking history: Never smoked Have you smoked in the past 12 months: No Aproximately how many cigarettes per day: 0 If you are a former smoker, when did you quit?: as a teenager - Alcohol/Substance Use Hx Alcohol Use: No History of Substance Use: reports: Marijuana Date of Last Use: 04/12/19 (daily use ) - Social History ADL: Independent Occupation: not employed History of Recent Travel: No Home Medications - Allergies Allergies/Adverse Reactions: Allergies Allergy/AdvReac Type Severity Reaction Status Date / Time quetiapine fumarate Allergy Unknown hypotension Verified 05/14/18 00:22 [From Seroquel] - Home Medications Home Medications: Ambulatory Orders Insulin Pump Syringe, 3 ml [Paradigm] 1 each ASDIR 10/04/13 Pregabalin [Lyrica -] 150 mg PO TID 09/22/14 Lubiprostone [Amitiza] 24 mcg PO DAILY PRN 06/05/17 Ondansetron [Zofran *Odt*] 8 mg PO PRN 06/05/17 Sennosides [Senna] 8.6 mg PO PRN 06/05/17 Buprenorphine/Naloxone [Suboxone 8Mg/2Mg Sl Film -] 1 each SL Q12H 05/14/18 Ranitidine [Zantac -] 150 mg PO BID 05/14/18 Metoclopramide HCl [Reglan -] 10 mg PO Q6H PRN #120 tablet 05/15/18 Levothyroxine [Synthroid -] 125 mcg PO DAILY@0700 #30 tablet 05/17/18 Family Medical History Family Hx Dementia: Mother, Father Review of Systems - Review of Systems Constitutional: reports: No Symptoms Eyes: reports: No Symptoms HENT: reports: No Symptoms Neck: reports: No Symptoms Cardiovascular: reports: Chest Pain, Shortness of Breath Respiratory: reports: No Symptoms Gastrointestinal: reports: No Symptoms Genitourinary: reports: No Symptoms Musculoskeletal: reports: Back Pain Integumentary: reports: Other (left groin abscess) Endocrine: reports: No Symptoms Hematology/Lymphatic: reports: No Symptoms Psychiatric: reports: Depression Physical Examination Vital Signs: Vital Signs Temperature Pulse Rate Respiratory Rate Blood Pressure 129/82 04/12/19 18:23 O2 Sat by Pulse Oximetry (%) Constitutional: Yes: No Distress Eyes: Yes: Conjunctiva Clear, EOM Intact HENT: Yes: Atraumatic, Normocephalic Neck: Yes: Supple, Trachea Midline Cardiovascular: Yes: Regular Rate and Rhythm Respiratory: Yes: Regular, CTA Bilaterally Gastrointestinal: Yes: Normal Bowel Sounds, Soft Musculoskeletal: Yes: Back Pain Extremities: Yes: WNL Edema: No Peripheral Pulses WNL: Yes Integumentary: Yes: Other (left inguinal abscess( chronic in nature), s/p I &D) Neurological: Yes: Alert, Oriented Labs: CBC, BMP 04/12/19 18:37 Imaging - Results Chest X-ray: Report Reviewed (no acute pathology) EKG: Report Reviewed ( Sinus Rhythm, Normal Rate, Normal Intervals, No acute ischemic changes) Other: Report Reviewed Problem List - Problems (1) Chest pain at rest Code(s): R07.9 - CHEST PAIN, UNSPECIFIED (2) Hyperglycemia due to type 1 diabetes mellitus Code(s): E10.65 - TYPE 1 DIABETES MELLITUS WITH HYPERGLYCEMIA (3) Elevated beta-hydroxybutyrate Code(s): R78.89 - FINDING OF OTH SUBSTANCES, NOT NORMALLY FOUND IN BLOOD (4) Inguinal abscess Code(s): L02.214 - CUTANEOUS ABSCESS OF GROIN (5) Depression Code(s): F32.9 - MAJOR DEPRESSIVE DISORDER, SINGLE EPISODE, UNSPECIFIED (6) Gastroparesis Code(s): K31.84 - GASTROPARESIS (7) Chronic back pain Code(s): M54.9 - DORSALGIA, UNSPECIFIED; G89.29 - OTHER CHRONIC PAIN Qualifiers: Back pain location: low back pain Back pain laterality: bilateral Sciatica presence: without sciatica Qualified Code(s): M54.5 - Low back pain; G89.29 - Other chronic pain (8) Constipation Code(s): K59.00 - CONSTIPATION, UNSPECIFIED (9) Hypothyroidism Code(s): E03.9 - HYPOTHYROIDISM, UNSPECIFIED (10) JEFFERY (acute kidney injury) Code(s): N17.9 - ACUTE KIDNEY FAILURE, UNSPECIFIED (11) HTN (hypertension) Code(s): I10 - ESSENTIAL (PRIMARY) HYPERTENSION (12) HLD (hyperlipidemia) Code(s): E78.5 - HYPERLIPIDEMIA, UNSPECIFIED (13) Hypokalemia Code(s): E87.6 - HYPOKALEMIA Assessment/Plan 43 year old male with PMHx of Type I DM, Diabetic retinopathy/neuropathy, Gastroparesis, chronic low back and Neurogenic bladder arrived to ED with complains of elevated blood sugar after his insulin pump was accidentally dislocated last evening, accoridng to patient he replace the device around 6pm and administered 14 units of Humalog. patient also complains of mid-chest pain with sob (states chronic in nature gets on/off feels like a muscle tightness/ knot). #Chest pain with SOB mostly likely musculoskelatal in nature r/o ACS trop: negative x2 Ekg: Sinus Rhythm, Normal Rate, no acute ischemic changes - O2 via NC - follow up cardiology if needed # Left Inguinal abscess - I &D performed in ED, with one dose of IV clindamycin given - pain management - continue with clindamycin 300mg IV q 8 hours - consider ID follow in AM if needed - follow up cbc in AM # Type I DM with hyperglyecemia (managed on Humalog pump) # Diabetic retinopathy # Peripheral neuropathy - beta hydroxybutyrate: 28.3 random glucose: 532 --> repeat (247) POC : 443--> 252 -given 2 LR IVF in ED -Pregabalin 150 mg PO TID - monitor BGM -f/up hgA1c -follow up Endo in Am # JEFFERY bun/cr: 20/1.4 - improving 18.1/1.2 -s/p 2 L IVF LR in ED - continue with IVF x24 -monitor renal trend #hypokalemia k+ 3.4 - kcl supplement with 10 mEq - trend lytes # h/o HTN/HLD - no routine med - diet controlled - f/up lipids - consider PCP/ pharmacy follow up in AM verify meds # Gastroparesis -pepcid BID -Metoclopramide HCl 10 mg PO Q6H PRN # Chronic lower back pain - Buprenorphine/Naloxone 1 each SL Q12H - consider pain management output # Depression - Cymbalta 30 mg daily # Hypothyrodism - Levothyroxine 125 mcg PO DAILY - f/up TSH #constipation -Senna 8.6 po PRN Visit type - Emergency Visit Emergency Visit: Yes ED Registration Date: 04/12/19 Care time: The patient presented to the Emergency Department on the above date and was hospitalized for further evaluation of their emergent condition. - New Patient This patient is new to me today: Yes Date on this admission: 04/13/19 - Critical Care Critical Care patient: No
[2019-04-12] MEDS ORDERED: PATIENT'S OWN MEDICATION (NON-FORMULARY) (Lubiprostone [Amitiza] 24 MCG) PO PRN (22:37)
[2019-04-12] MEDS ORDERED: SENNOSIDES 8.6MG TABLET (FP) PO ONE (22:51)
[2019-04-12] MEDS ORDERED: SODIUM CHLORIDE 1,000 ML IV SCH (23:00)
[2019-04-12] MEDS ORDERED: POTASSIUM CHLORIDE TABS 10 MEQ TABLET.ER (FP) PO ONE (23:01)
[2019-04-12] MEDS: SENNOSIDES 8.6MG TABLET (FP) PO SCH (23:03)
[2019-04-12] MEDS: BUPRENORPHINE/NALOXONE 8 MG/2 MG FILM PACKET SL SCH (23:03)
[2019-04-12] MEDS: INSULIN PUMP MC SCH (23:07)
[2019-04-13] MEDS: CLINDAMYCIN 300 MG PREMIX IVPB 300 MG/50 ML BAG IVPB SCH ×3 (02:37→18:38)
[2019-04-13] MEDS ORDERED: PREGABALIN 50 MG CAPSULE ONE (06:08)
[2019-04-13] MEDS ORDERED: PREGABALIN 100 MG CAPSULE ONE (06:09)
[2019-04-13] MEDS ORDERED: LEVOTHYROXINE NA 25 MCG TABLET (FP) ONE (06:09)
[2019-04-13] MEDS: LEVOTHYROXINE NA 125 MCG TABLET (FP) PO SCH (06:26)
[2019-04-13] MEDS: PREGABALIN 75 MG CAPSULE PO SCH ×3 (06:26→22:27)
[2019-04-13 06:34] LABS: ALBUMIN 3.8 g/dl (3.4-5.0); BILIRUBIN,TOTAL 0.7 mg/dL (0.2-1); BLOOD UREA NITROGEN 13.8 mg/dL (7-18); CALCIUM 9.1 mg/dL (8.5-10.1); POTASSIUM 4.2 mmol/L (3.5-5.1); TOT PROT 6.8 g/dl (6.4-8.2)
[2019-04-13] MEDS: DULoxetine HCL 30 MG CAPSULE.DR PO SCH (09:47)
[2019-04-13] MEDS: FAMOTIDINE 20 MG TABLET PO SCH ×2 (09:47→22:27)
[2019-04-13] MEDS: HEPARIN NA (PORCINE) 5,000 UNITS/ML 1ML VIAL SQ SCH ×2 (09:47→22:27)
[2019-04-13] MEDS ORDERED: PATIENT'S OWN MEDICATION (NON-FORMULARY) (Ranitidine [Zantac -] 150 MG) PO SCH (10:00)
[2019-04-13] MEDS: BUPRENORPHINE/NALOXONE 8 MG/2 MG FILM PACKET SL SCH ×2 (11:30→22:27)
[2019-04-13] MEDS: METOCLOPRAMIDE HCL 10 MG TABLET (FP) PO PRN (12:22)
[2019-04-13 12:45] VITALS: BMI 26.9
--- NOTE | 2019-04-13 13:59 | EKG ---
Test Reason : Blood Pressure : / mmHG Vent. Rate : 091 BPM Atrial Rate : 091 BPM P-R Int : 152 ms QRS Dur : 080 ms QT Int : 366 ms P-R-T Axes : 070 066 040 degrees QTc Int : 450 ms NORMAL SINUS RHYTHM NONSPECIFIC T WAVE ABNORMALITY INCOMPLETE RBBB ABNORMAL ECG Confirmed by BARBARA BOYER MD ([id number]) on 04/13/2019 1:59:27 PM Referred By: Confirmed By:BARBARA BOYER MD
--- NOTE | 2019-04-13 14:22 | PN ---
Progress Note, Physician Chief Complaint: olvin seen and examined bgm better today admitted for hyperglycemia and inguinal abscess - Current Medication List Current Medications: Active Medications Buprenorphine/Naloxone (Suboxone 8 Mg/2 Mg Film Packet) 1 each SL Q12H [facility] Last Admin: 04/13/19 11:30 Dose: 1 each Duloxetine HCl (Cymbalta -) 30 mg PO DAILY [facility] Last Admin: 04/13/19 09:47 Dose: 30 mg Famotidine (Pepcid -) 20 mg PO BID [facility] Last Admin: 04/13/19 09:47 Dose: 20 mg Heparin Sodium (Porcine) (Heparin -) 5,000 unit SQ BID [facility] Last Admin: 04/13/19 09:47 Dose: 5,000 unit Sodium Chloride (Normal Saline -) 1,000 mls @ 50 mls/hr IV ASDIR [facility] Stop: 04/13/19 22:52 Last Admin: 04/12/19 23:06 Dose: 50 mls/hr Clindamycin Phosphate (Cleocin 300 Mg Premix Ivpb) 300 mg in 50 mls @ 100 mls/ hr IVPB Q8H-IV [facility] Last Admin: 04/13/19 10:10 Dose: 100 mls/hr Levothyroxine Sodium (Synthroid -) 125 mcg PO DAILY@0700 [facility] Last Admin: 04/13/19 06:26 Dose: 125 mcg Metoclopramide HCl (Reglan -) 10 mg PO Q6H PRN PRN Reason: CONSTIPATION Last Admin: 04/13/19 12:22 Dose: 10 mg Non-Formulary Medication (Insulin Pump Syringe, 3 Ml [Paradigm]) 1 each MC ASDIR [facility] Last Admin: 04/12/19 23:07 Dose: Not Given Pregabalin (Lyrica -) 150 mg PO TID [facility] Last Admin: 04/13/19 13:16 Dose: 150 mg Senna (Senna -) 2 tab PO HS [facility] Last Admin: 04/12/19 23:03 Dose: 2 tab - Objective Vital Signs: Vital Signs Temperature 98.5 F 04/13/19 10:30 Pulse Rate 93 H 04/13/19 10:30 Respiratory Rate 20 04/13/19 10:30 Blood Pressure 139/81 04/13/19 10:30 O2 Sat by Pulse Oximetry (%) 95 04/13/19 11:00 Constitutional: Yes: Calm Cardiovascular: Yes: Regular Rate and Rhythm, S1, S2 Respiratory: Yes: CTA Bilaterally Gastrointestinal: Yes: Normal Bowel Sounds, Soft Edema: No Neurological: Yes: Alert, Oriented Labs: CBC, BMP 04/12/19 18:37 04/13/19 05:52 Problem List - Problems (1) JEFFERY (acute kidney injury) Assessment/Plan: improved with IVF Code(s): N17.9 - ACUTE KIDNEY FAILURE, UNSPECIFIED (2) Inguinal abscess Assessment/Plan: s/p Incision and drainage on iv clindamycin ID consulted Code(s): L02.214 - CUTANEOUS ABSCESS OF GROIN (3) Hyperglycemia due to type 1 diabetes mellitus Assessment/Plan: bgm endocrine consult Code(s): E10.65 - TYPE 1 DIABETES MELLITUS WITH HYPERGLYCEMIA (4) Hypothyroidism Assessment/Plan: synthroid tsh check Code(s): E03.9 - HYPOTHYROIDISM, UNSPECIFIED
[2019-04-13] MEDS ORDERED: PT OWN MED DRAWER 7, Y5N ONE ×2 (17:04→17:31)
[2019-04-13] MEDS: SENNOSIDES 8.6MG TABLET (FP) PO SCH (22:26)
--- NOTE | 2019-04-13 22:31 | CONSULT ---
Consult Consult Specialty:: ENDOCRINE Referred by:: Reason for Consultation:: DMT1 - History of Present Illness Chief Complaint: HIGH SUGARS History of Present Illness: 43-year-old diabetic type I since the age of 4 neurogenic bladder depression presenting with high sugar and chest pain. Patient states that he has a pump which is external which she inserts into the subcu and last night he was sleeping the sticker and the attachment site came loose therefore he was not receiving his insulin during the night today when he felt nauseous like his sugar may be high from the infection abscess in left groin.he has history of recurrent boils in groin area.diabetic gastroparesis,and neuropathy.he has difficulty using insulin other than pump,given labile blood sugars,wants to remain on insulin pump.he has the training and capability of using the insulin pump. 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: Peripheral Neuropathy Cardio/Vascular: Yes: HTN, Hyperlipdemia Gastrointestinal: Yes: Gastritis Renal/: Yes: Renal Calculi Psych: Yes: Depression Musculoskeletal: Yes: Chronic low back pain Endocrine: Yes: Diabetes Mellitus - Past Surgical History Past Surgical History: Yes: Appendectomy - Alcohol/Substance Use Hx Alcohol Use: No History of Substance Use: reports: Marijuana Date of Last Use: 04/12/19 (daily use ) - Smoking History Smoking history: Never smoked Have you smoked in the past 12 months: No Aproximately how many cigarettes per day: 0 If you are a former smoker, when did you quit?: as a teenager - Social History ADL: Independent Occupation: not employed History of Recent Travel: No Home Medications - Allergies Allergies/Adverse Reactions: Allergies Allergy/AdvReac Type Severity Reaction Status Date / Time quetiapine fumarate Allergy Unknown hypotension Verified 05/14/18 00:22 [From Seroquel] - Home Medications Home Medications: Ambulatory Orders Insulin Pump Syringe, 3 ml [Paradigm] 1 each ASDIR 10/04/13 Pregabalin [Lyrica -] 150 mg PO TID 09/22/14 Lubiprostone [Amitiza] 24 mcg PO DAILY PRN 06/05/17 Ondansetron [Zofran *Odt*] 8 mg PO PRN 06/05/17 Sennosides [Senna] 8.6 mg PO PRN 06/05/17 Buprenorphine/Naloxone [Suboxone 8Mg/2Mg Sl Film -] 1 each SL Q12H 05/14/18 Ranitidine [Zantac -] 150 mg PO BID 05/14/18 Metoclopramide HCl [Reglan -] 10 mg PO Q6H PRN #120 tablet 05/15/18 Levothyroxine [Synthroid -] 125 mcg PO DAILY@0700 #30 tablet 05/17/18 Review of Systems - Review of Systems Constitutional: reports: Lethargy, Loss of Appetite, Unintentional Wgt. Loss, Weakness Eyes: reports: No Symptoms HENT: reports: No Symptoms Neck: reports: No Symptoms Cardiovascular: reports: Shortness of Breath Respiratory: reports: Exercise Intolerance, SOB on Exertion Gastrointestinal: reports: Bloating, Nausea Genitourinary: reports: No Symptoms Breasts: reports: No Symptoms Reported Musculoskeletal: reports: Muscle Cramps, Muscle Weakness Integumentary: reports: Pruritis, Rash, Wound Neurological: reports: Numbness, Weakness Endocrine: reports: Unexplained Weight Loss Physical Exam Vital Signs: Vital Signs Temperature 98.1 F 04/13/19 18:00 Pulse Rate 87 04/13/19 18:00 Respiratory Rate 20 04/13/19 18:00 Blood Pressure 148/77 04/13/19 18:00 O2 Sat by Pulse Oximetry (%) 96 04/13/19 12:47 Constitutional: Yes: Anxious Eyes: Yes: EOM Intact HENT: Yes: Normocephalic Neck: Yes: Trachea Midline Cardiovascular: Yes: Regular Rate and Rhythm Respiratory: Yes: CTA Bilaterally Gastrointestinal: Yes: Normal Bowel Sounds ...Rectal Exam: Yes: Deferred Renal/: Yes: WNL Breast(s): Yes: WNL Musculoskeletal: Yes: Muscle Weakness Extremities: Yes: Delayed Capillary Refill Edema: No Integumentary: Yes: Onychomycosis, Venous Stasis Changes Wound/Incision: Yes: Draining, Reddened, Excoriated Neurological: Yes: Alert, Oriented, Tingling, Weakness Labs: CBC, BMP 04/12/19 18:37 04/13/19 05:52 Problem List - Problems (1) JEFFERY (acute kidney injury) Problems reviewed: Yes Code(s): N17.9 - ACUTE KIDNEY FAILURE, UNSPECIFIED (2) Chest pain at rest Problems reviewed: Yes Code(s): R07.9 - CHEST PAIN, UNSPECIFIED (3) Depression Problems reviewed: Yes Code(s): F32.9 - MAJOR DEPRESSIVE DISORDER, SINGLE EPISODE, UNSPECIFIED (4) Elevated beta-hydroxybutyrate Problems reviewed: Yes Code(s): R78.89 - FINDING OF OTH SUBSTANCES, NOT NORMALLY FOUND IN BLOOD (5) Gastroparesis Problems reviewed: Yes Code(s): K31.84 - GASTROPARESIS (6) HLD (hyperlipidemia) Problems reviewed: Yes Code(s): E78.5 - HYPERLIPIDEMIA, UNSPECIFIED (7) HTN (hypertension) Problems reviewed: Yes Code(s): I10 - ESSENTIAL (PRIMARY) HYPERTENSION (8) Hyperglycemia due to type 1 diabetes mellitus Code(s): E10.65 - TYPE 1 DIABETES MELLITUS WITH HYPERGLYCEMIA Assessment/Plan Current Active Problems JEFFERY (acute kidney injury) (Acute) Chest pain at rest (Acute) Depression (Acute) Elevated beta-hydroxybutyrate (Acute) Gastroparesis (Acute) HLD (hyperlipidemia) (Acute) HTN (hypertension) (Acute) Hyperglycemia due to type 1 diabetes mellitus (Acute) Inguinal abscess (Acute) Inguinal abscess (Acute) Shortness of breath (Acute) Abnormal Lab Results 04/13/19 04/13/19 05:52 05:52 Anion Gap 6 L Random Glucose 176 H Hemoglobin A1c % 8.4 H AST 12 L Laboratory Results - last 24 hr 04/13/19 04/13/19 04/13/19 04:57 05:16 05:52 Sodium 140 Potassium 4.2 Chloride 104 Carbon Dioxide 30 Anion Gap 6 L BUN 13.8 Creatinine 1.0 Est GFR (CKD-EPI)AfAm 107.87 Est GFR (CKD-EPI)NonAf 93.07 POC Glucometer 40 90 Random Glucose 176 H Hemoglobin A1c % Calcium 9.1 Total Bilirubin 0.7 AST 12 L ALT 23 Alkaline Phosphatase 105 Creatine Kinase Troponin I Total Protein 6.8 Albumin 3.8 Triglycerides 78 Cholesterol 129 Total LDL Cholesterol 64 HDL Cholesterol 55 TSH 0.47 D 04/13/19 04/13/19 04/13/19 05:52 11:25 15:40 Sodium Potassium Chloride Carbon Dioxide Anion Gap BUN Creatinine Est GFR (CKD-EPI)AfAm Est GFR (CKD-EPI)NonAf POC Glucometer 93 Random Glucose Hemoglobin A1c % 8.4 H Calcium Total Bilirubin AST ALT Alkaline Phosphatase Creatine Kinase 107 Troponin I < 0.02 Total Protein Albumin Triglycerides Cholesterol Total LDL Cholesterol HDL Cholesterol TSH 04/13/19 04/13/19 17:22 22:00 Sodium Potassium Chloride Carbon Dioxide Anion Gap BUN Creatinine Est GFR (CKD-EPI)AfAm Est GFR (CKD-EPI)NonAf POC Glucometer 185 209 Random Glucose Hemoglobin A1c % Calcium Total Bilirubin AST ALT Alkaline Phosphatase Creatine Kinase Troponin I Total Protein Albumin Triglycerides Cholesterol Total LDL Cholesterol HDL Cholesterol TSH plan: bgm qid novolog used insulin pump basal rates 1.25unit per hr basal bolus per patient need wound care
[2019-04-13] MEDS: INSULIN PUMP MC SCH (22:33)
[2019-04-14] MEDS ORDERED: PT OWN MED DRAWER 7, Y5N ONE ×3 (01:59→16:38)
[2019-04-14] MEDS: METOCLOPRAMIDE HCL 10 MG TABLET (FP) PO PRN ×2 (02:07→11:55)
[2019-04-14] MEDS: CLINDAMYCIN 300 MG PREMIX IVPB 300 MG/50 ML BAG IVPB SCH ×3 (03:38→17:03)
[2019-04-14] MEDS: PREGABALIN 75 MG CAPSULE PO SCH ×3 (06:42→21:21)
[2019-04-14] MEDS: INSULIN SLIDING SCALE (NOVOLOG) 1 VIAL SQ SCH ×4 (06:42→21:21)
[2019-04-14] MEDS: LEVOTHYROXINE NA 125 MCG TABLET (FP) PO SCH (06:42)
[2019-04-14] MEDS: INSULIN PUMP MC SCH (06:43)
[2019-04-14 07:04] LABS: HEMATOCRIT 38.7 % (35.4-49); HEMOGLOBIN 13.1 GM/dL (11.7-16.9); LYMPH % 40.6 % (8-40); MCH 29.6 pg (25.7-33.7); MCHC 33.8 g/dl (32.0-35.9); MEAN CELL VOLUME 87.7 fl (80-96); MEAN PLT VOLUME 9.6 fl (7.5-11.1); MONO % 9.6 % (3.8-10.2); NEUT % 46.8 % (42.8-82.8); PLATELET COUNT 214 K/MM3 (134-434); RBC 4.41 M/mm3 (4.00-5.60); RDW 13.9 % (11.9-15.9); WHITE BLOOD COUNT 2.4 K/mm3 (4.0-10.0)
[2019-04-14 07:38] LABS: ALBUMIN 3.5 g/dl (3.4-5.0); BILIRUBIN,TOTAL 0.6 mg/dL (0.2-1); BLOOD UREA NITROGEN 7.7 mg/dL (7-18); CALCIUM 9.1 mg/dL (8.5-10.1); CREATININE 0.9 mg/dL (0.55-1.3); POTASSIUM 3.7 mmol/L (3.5-5.1); TOT PROT 6.8 g/dl (6.4-8.2)
[2019-04-14] MEDS: HEPARIN NA (PORCINE) 5,000 UNITS/ML 1ML VIAL SQ SCH ×2 (09:15→21:26)
[2019-04-14] MEDS: DULoxetine HCL 30 MG CAPSULE.DR PO SCH (09:15)
[2019-04-14] MEDS: FAMOTIDINE 20 MG TABLET PO SCH ×2 (09:15→21:21)
[2019-04-14] MEDS: BUPRENORPHINE/NALOXONE 8 MG/2 MG FILM PACKET SL SCH ×2 (10:53→23:00)
--- NOTE | 2019-04-14 11:34 | PN ---
Progress Note, Physician Chief Complaint: AWAKE ALERT FEELS BETTER NO FEVERS OOB TO CHAIR IV ABX WOUND CARE - Current Medication List Current Medications: Active Medications Buprenorphine/Naloxone (Suboxone 8 Mg/2 Mg Film Packet) 1 each SL Q12H [facility] Last Admin: 04/14/19 10:53 Dose: 1 each Duloxetine HCl (Cymbalta -) 30 mg PO DAILY [facility] Last Admin: 04/14/19 09:15 Dose: 30 mg Famotidine (Pepcid -) 20 mg PO BID [facility] Last Admin: 04/14/19 09:15 Dose: 20 mg Heparin Sodium (Porcine) (Heparin -) 5,000 unit SQ BID [facility] Last Admin: 04/14/19 09:15 Dose: 5,000 unit Clindamycin Phosphate (Cleocin 300 Mg Premix Ivpb) 300 mg in 50 mls @ 100 mls/ hr IVPB Q8H-IV [facility] Last Admin: 04/14/19 10:53 Dose: 100 mls/hr Insulin Aspart (Novolog Vial Sliding Scale -) 1 vial SQ [facility]; Protocol Last Admin: 04/14/19 11:24 Dose: Not Given Levothyroxine Sodium (Synthroid -) 125 mcg PO DAILY@0700 [facility] Last Admin: 04/14/19 06:42 Dose: 125 mcg Metoclopramide HCl (Reglan -) 10 mg PO Q6H PRN PRN Reason: CONSTIPATION Last Admin: 04/14/19 02:07 Dose: 10 mg Non-Formulary Medication (Insulin Pump Syringe, 3 Ml [Paradigm]) 1 each MC ASDIR [facility] Last Admin: 04/14/19 06:43 Dose: 1 each Pregabalin (Lyrica -) 150 mg PO TID [facility] Last Admin: 04/14/19 06:42 Dose: 150 mg Senna (Senna -) 2 tab PO HS [facility] Last Admin: 04/13/19 22:26 Dose: 2 tab - Objective Vital Signs: Vital Signs Temperature 98.2 F 04/14/19 10:00 Pulse Rate 79 04/14/19 10:00 Respiratory Rate 20 04/14/19 10:00 Blood Pressure 139/75 04/14/19 10:00 O2 Sat by Pulse Oximetry (%) 99 04/13/19 20:47 Labs: CBC, BMP 04/14/19 06:05 04/14/19 06:05
[2019-04-14] MEDS: SENNOSIDES 8.6MG TABLET (FP) PO SCH (21:27)
--- NOTE | 2019-04-14 22:33 | PN ---
Progress Note (short form) - Note Progress Note: ID CONSULT DICTATED RECURRENT SOFT TISSUE ABSCESS S/P DRAINAGE IDDM DIABETES MELLITUS CONTINUE EMPIRIC CLINDAMYCIN
[2019-04-15] MEDS ORDERED: PT OWN MED DRAWER 7, Y5N ONE ×3 (00:48→18:20)
[2019-04-15] MEDS: INSULIN PUMP MC SCH ×2 (01:02→12:28)
[2019-04-15] MEDS: CLINDAMYCIN 300 MG PREMIX IVPB 300 MG/50 ML BAG IVPB SCH ×3 (01:16→18:27)
[2019-04-15] MEDS: PREGABALIN 75 MG CAPSULE PO SCH ×3 (06:12→21:30)
[2019-04-15] MEDS: INSULIN SLIDING SCALE (NOVOLOG) 1 VIAL SQ SCH ×4 (06:12→21:35)
[2019-04-15] MEDS: LEVOTHYROXINE NA 125 MCG TABLET (FP) PO SCH (06:12)
[2019-04-15] MEDS: HEPARIN NA (PORCINE) 5,000 UNITS/ML 1ML VIAL SQ SCH ×2 (09:12→21:30)
[2019-04-15] MEDS: FAMOTIDINE 20 MG TABLET PO SCH (09:12)
[2019-04-15] MEDS: DULoxetine HCL 30 MG CAPSULE.DR PO SCH (09:12)
[2019-04-15] MEDS: BUPRENORPHINE/NALOXONE 8 MG/2 MG FILM PACKET SL SCH ×2 (10:50→22:46)
[2019-04-15] MEDS ORDERED: METOCLOPRAMIDE HCL 10 MG TABLET (FP) PO PRN (11:16)
--- NOTE | 2019-04-15 15:25 | PN ---
Progress Note (short form) - Note Progress Note: ID L GROIN SOFT TISSUE ABSCESS HEALED NO TENDERNESS/ FLUCTUANCE OR EXPRESSIBLE DRAINAGE NO FEVER/ CHILLS NO CULTURES AVAILABLE SUBSTITUTE CLINDAMYCIN 300MG PO TID X 7D
--- NOTE | 2019-04-15 15:52 | PN ---
Progress Note, Physician Chief Complaint: Hyperglycemia Inguinal Abscess History of Present Illness: Previous notes and events reviewed awake and alert NAD complain of nausea and epigastric pain complain of constipation - Current Medication List Current Medications: Active Medications Buprenorphine/Naloxone (Suboxone 8 Mg/2 Mg Film Packet) 1 each SL Q12H [facility] Duloxetine HCl (Cymbalta -) 30 mg PO DAILY [facility] Famotidine (Pepcid -) 20 mg PO BID [facility] Heparin Sodium (Porcine) (Heparin -) 5,000 unit SQ BID [facility] Clindamycin Phosphate (Cleocin 300 Mg Premix Ivpb) 300 mg in 50 mls @ 100 mls/ hr IVPB Q8H-IV [facility] Insulin Aspart (Novolog Vial Sliding Scale -) 1 vial SQ ACHS [facility]; Protocol Levothyroxine Sodium (Synthroid -) 125 mcg PO DAILY@0700 [facility] Metoclopramide HCl (Reglan -) 10 mg PO Q6H PRN PRN Reason: CONSTIPATION Last Admin: 04/15/19 14:21 Dose: 10 mg Non-Formulary Medication (Insulin Pump Syringe, 3 Ml [Paradigm]) 1 each MC ASDIR [facility] Last Admin: 04/15/19 12:28 Dose: 1 each Pregabalin (Lyrica -) 150 mg PO TID [facility] Last Admin: 04/15/19 14:21 Dose: 150 mg Senna (Senna -) 2 tab PO HS [facility] - Objective Vital Signs: Vital Signs Temperature 98.4 F 04/15/19 14:51 Pulse Rate 92 H 04/15/19 14:51 Respiratory Rate 20 04/15/19 14:51 Blood Pressure 146/88 04/15/19 14:51 O2 Sat by Pulse Oximetry (%) 99 04/15/19 09:42 Constitutional: Yes: No Distress, Calm Eyes: Yes: Conjunctiva Clear HENT: Yes: Atraumatic Cardiovascular: Yes: Regular Rate and Rhythm Respiratory: Yes: Regular, CTA Bilaterally Gastrointestinal: Yes: Normal Bowel Sounds, Soft Musculoskeletal: Yes: WNL Extremities: Yes: WNL Edema: No Wound/Incision: Yes: Dressing Dry and Intact (left groin) Neurological: Yes: Alert, Oriented Psychiatric: Yes: Alert, Oriented Labs: CBC, BMP 04/14/19 06:05 04/14/19 06:05 Laboratory Results - last 24 hr 04/14/19 04/14/19 04/15/19 16:41 21:17 05:54 POC Glucometer 202 178 128 04/15/19 04/15/19 11:04 11:45 POC Glucometer 139 131 Problem List - Problems (1) Inguinal abscess Assessment/Plan: -I&D done -ID on board -Clindamycin -afebrile -no leukocytosis - Code(s): L02.214 - CUTANEOUS ABSCESS OF GROIN (2) Constipation Assessment/Plan: -Miralax Code(s): K59.00 - CONSTIPATION, UNSPECIFIED (3) IDDM (insulin dependent diabetes mellitus) Assessment/Plan: -Endocrinology on board -Insulin pump -BGM ACHS -A1c 8.4% -ISS Code(s): E11.9 - TYPE 2 DIABETES MELLITUS WITHOUT COMPLICATIONS; Z79.4 - ASSISTED (CURRENT) USE OF INSULIN (4) Nausea and vomiting Assessment/Plan: -GI consult Code(s): R11.2 - NAUSEA WITH VOMITING, UNSPECIFIED Assessment/Plan see problem list dvt ppx
--- NOTE | 2019-04-15 16:27 | CONS ---
DATE OF CONSULTATION: DATE OF DICTATION: 04/15/2019 The patient is a 43-year-old diabetic male, who is evaluated for skin abscess He was admitted to the hospital after he had dislodged his insulin pump. He noted markedly elevated blood sugars. In addition, he complained of chest discomfort. He was admitted to the telemetry floor. He was noted to have a soft tissue abscess of the left inguinal area, which was drained. He has no complaints of pain at the site. The patient reports a history of recurrent soft tissue infections involving the skin. He has had recurrent pilonidal cysts as well as a soft tissue abscess involving the left buttock, which required incision and drainage. He reports history of MRSA in the past; however, this cannot be confirmed at the [facility] micro lab. He denies any associated fever or chills. Past medical history positive for insulin-dependent diabetes mellitus, peripheral neuropathy, gastroparesis, neurogenic bladder, hypertension, hyperlipidemia, BPH, asthma. PAST SURGICAL HISTORY: Status post insulin pump, status post appendectomy and bladder repair. Allergies to SEROQUEL. MEDICATIONS: Suboxone, clindamycin, Cymbalta, Pepcid, Lyrica. SOCIAL HISTORY: Resides in the community. Nonsmoker, nondrinker. LABORATORY DATA: White count 5.6, hematocrit 40.2, platelets 221. PHYSICAL EXAMINATION: General: He is awake and alert, He is not acutely toxic appearing. Vital Signs: Temperature 98.2. Blood pressure 142/82. Pulse 89, regular. Respirations 20 per minute. Eyes: Sclerae anicteric. Heart Sounds: S1, S2. Lungs: Clear. Abdomen: Soft. There is an indurated area present in the left inguinal area, approximately 2 cm in diameter. It is nontender, it is not fluctuant. There is no expressible pus. Extremities: Negative for edema. IMPRESSION: 1. Status post drainage of left inguinal soft tissue abscess. 2. History of recurrence of soft tissue abscesses. 3. Insulin-dependent diabetes mellitus, uncontrolled. 4. Methicillin-resistant Staphylococcus aureus by history. May substitute clindamycin 300 mg orally every 8 hours. Local wound care. Thank you for the kind referral. BARBARA BHATIA M.D. [id number]
[2019-04-15] MEDS ORDERED: ONDANSETRON *ODT* 4 MG TABLET SL PRN (16:37)
[2019-04-15] MEDS: POLYETHYLENE GLYCOL 3350 119 GM BTL PO SCH (18:27)
[2019-04-15] MEDS: SENNOSIDES 8.6MG TABLET (FP) PO SCH (21:30)
[2019-04-15] MEDS ORDERED: FAMOTIDINE 20 MG TABLET PO SCH (22:00)
--- NOTE | 2019-04-15 23:31 | PN ---
Progress Note, Physician Chief Complaint: RT HIP ABSCESS SIGHT OF BLADDER STIM - Current Medication List Current Medications: Active Medications Buprenorphine/Naloxone (Suboxone 8 Mg/2 Mg Film Packet) 1 each SL Q12H [facility] Last Admin: 04/15/19 22:46 Dose: 1 each Duloxetine HCl (Cymbalta -) 30 mg PO DAILY [facility] Famotidine (Pepcid -) 20 mg PO BID [facility] Last Admin: 04/15/19 21:29 Dose: 20 mg Heparin Sodium (Porcine) (Heparin -) 5,000 unit SQ BID [facility] Last Admin: 04/15/19 21:30 Dose: 5,000 unit Clindamycin Phosphate (Cleocin 300 Mg Premix Ivpb) 300 mg in 50 mls @ 100 mls/ hr IVPB Q8H-IV [facility] Last Admin: 04/15/19 18:27 Dose: 100 mls/hr Insulin Aspart (Novolog Vial Sliding Scale -) 1 vial SQ ACHS [facility]; Protocol Last Admin: 04/15/19 21:35 Dose: Not Given Levothyroxine Sodium (Synthroid -) 125 mcg PO DAILY@0700 [facility] Metoclopramide HCl (Reglan -) 10 mg PO Q6H PRN PRN Reason: CONSTIPATION Last Admin: 04/15/19 14:21 Dose: 10 mg Non-Formulary Medication (Insulin Pump Syringe, 3 Ml [Paradigm]) 1 each MC ASDIR [facility] Last Admin: 04/15/19 12:28 Dose: 1 each Ondansetron HCl (Zofran Odt -) 4 mg SL Q6H PRN PRN Reason: NAUSEA AND/OR VOMITING Polyethylene Glycol (Miralax (For Daily Use) -) 17 gm PO DAILY [facility] Last Admin: 04/15/19 18:27 Dose: 17 gm Pregabalin (Lyrica -) 150 mg PO TID [facility] Last Admin: 04/15/19 21:30 Dose: 150 mg Senna (Senna -) 2 tab PO HS [facility] Last Admin: 04/15/19 21:30 Dose: 2 tab - Objective Vital Signs: Vital Signs Temperature 98.6 F 04/15/19 21:35 Pulse Rate 95 H 04/15/19 21:35 Respiratory Rate 22 H 04/15/19 21:35 Blood Pressure 138/86 04/15/19 21:35 O2 Sat by Pulse Oximetry (%) 99 04/15/19 09:42 Constitutional: Yes: Calm Eyes: Yes: EOM Intact HENT: Yes: Normocephalic Neck: Yes: Trachea Midline Cardiovascular: Yes: Regular Rate and Rhythm Respiratory: Yes: CTA Bilaterally Gastrointestinal: Yes: Normal Bowel Sounds ...Rectal Exam: Yes: Deferred Genitourinary: Yes: WNL Breast(s): Yes: WNL Musculoskeletal: Yes: WNL Extremities: Yes: Delayed Capillary Refill, Erythema Edema: No Wound/Incision: Yes: Well Approximated, Draining Neurological: Yes: Alert, Oriented, Loss of Sensation, Weakness Labs: CBC, BMP 04/14/19 06:05 04/14/19 06:05 Problem List - Problems (1) JEFFERY (acute kidney injury) Problems reviewed: Yes Code(s): N17.9 - ACUTE KIDNEY FAILURE, UNSPECIFIED (2) Chest pain at rest Problems reviewed: Yes Code(s): R07.9 - CHEST PAIN, UNSPECIFIED (3) Depression Problems reviewed: Yes Code(s): F32.9 - MAJOR DEPRESSIVE DISORDER, SINGLE EPISODE, UNSPECIFIED (4) Elevated beta-hydroxybutyrate Problems reviewed: Yes Code(s): R78.89 - FINDING OF OTH SUBSTANCES, NOT NORMALLY FOUND IN BLOOD (5) Gastroparesis Problems reviewed: Yes Code(s): K31.84 - GASTROPARESIS (6) HLD (hyperlipidemia) Problems reviewed: Yes Code(s): E78.5 - HYPERLIPIDEMIA, UNSPECIFIED (7) HTN (hypertension) Code(s): I10 - ESSENTIAL (PRIMARY) HYPERTENSION (8) Hyperglycemia due to type 1 diabetes mellitus Code(s): E10.65 - TYPE 1 DIABETES MELLITUS WITH HYPERGLYCEMIA Assessment/Plan Current Active Problems JEFFERY (acute kidney injury) (Acute) Chest pain at rest (Acute) Depression (Acute) Elevated beta-hydroxybutyrate (Acute) Gastroparesis (Acute) HLD (hyperlipidemia) (Acute) HTN (hypertension) (Acute) Hyperglycemia due to type 1 diabetes mellitus (Acute) Inguinal abscess (Acute) Inguinal abscess (Acute) Shortness of breath (Acute) Laboratory Results - last 24 hr 04/15/19 04/15/19 04/15/19 05:54 11:04 11:45 POC Glucometer 128 139 131 04/15/19 04/15/19 16:15 21:24 POC Glucometer 143 146 PLAN: BGM QID NOVOLOG INSULIN BASAL BOLUS USING PUMP CONSULT WOUND CARE DRESSING
[2019-04-16] MEDS ORDERED: PT OWN MED DRAWER 7, Y5N ONE (00:59)
[2019-04-16] MEDS ORDERED: FLUTICASONE PROP 0.05% 16 GM NASAL SPRAY NS ONE (01:06)
[2019-04-16] MEDS: CLINDAMYCIN 300 MG PREMIX IVPB 300 MG/50 ML BAG IVPB SCH ×3 (01:16→17:05)
[2019-04-16] MEDS: OXYMETAZOLINE 0.05% NASAL SOLUTION 15 ML BOTTLE NS PRN (01:30)
[2019-04-16] MEDS ORDERED: MELATONIN 5 MG TABLETS PO ONE (05:08)
[2019-04-16] MEDS: PREGABALIN 75 MG CAPSULE PO SCH ×3 (05:20→21:56)
[2019-04-16] MEDS: INSULIN SLIDING SCALE (NOVOLOG) 1 VIAL SQ SCH ×3 (06:09→16:36)
[2019-04-16] MEDS ORDERED: LEVOTHYROXINE NA 125 MCG TABLET (FP) PO SCH (07:00)
[2019-04-16 07:06] LABS: HEMATOCRIT 38.7 % (35.4-49); HEMOGLOBIN 13.3 GM/dL (11.7-16.9); MCH 29.8 pg (25.7-33.7); MCHC 34.5 g/dl (32.0-35.9); MEAN CELL VOLUME 86.3 fl (80-96); MEAN PLT VOLUME 9.5 fl (7.5-11.1); PLATELET COUNT 222 K/MM3 (134-434); RBC 4.48 M/mm3 (4.00-5.60); RDW 13.7 % (11.9-15.9); WHITE BLOOD COUNT 2.5 K/mm3 (4.0-10.0)
[2019-04-16 07:33] LABS: ALBUMIN 3.9 g/dl (3.4-5.0); BILIRUBIN,TOTAL 0.6 mg/dL (0.2-1); BLOOD UREA NITROGEN 11.5 mg/dL (7-18); CALCIUM 9.6 mg/dL (8.5-10.1); CREATININE 0.8 mg/dL (0.55-1.3); POTASSIUM 3.6 mmol/L (3.5-5.1); TOT PROT 7.3 g/dl (6.4-8.2)
--- NOTE | 2019-04-16 08:14 | CON.GI ---
Consult Consult Specialty:: GI Referred by:: Carolann Cole NP Reason for Consultation:: Epigastric Pain with nausea - History of Present Illness History of Present Illness: Patient is a 43 y/o male with past medical history of IDDM, Diabetic Retinopathy /Neuropathy, Gastroparesis, Chronic lower back pain, Neurogenic bladder. Patient complain of non-radiating epigastric pain described as a soreness accompanied with nausea during eating. This pain began about 5 days ago as per patient. EGD done in 2013 shows erythema in the body and antrum with gastric body showing mild nonspecific chronic inflammation. Complains of occasional constipation. Denies vomiting, diarrhea, rectal bleeding or melena. 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 Cardio/Vascular: Yes: HTN, Hyperlipdemia Gastrointestinal: Yes: Gastritis Renal/: Yes: Renal Calculi Psych: Yes: Depression Musculoskeletal: Yes: Chronic low back pain Endocrine: Yes: Diabetes Mellitus - Past Surgical History Past Surgical History: Yes: Appendectomy - Alcohol/Substance Use Hx Alcohol Use: No History of Substance Use: reports: Marijuana Date of Last Use: 04/12/19 (daily use ) - Smoking History Smoking history: Never smoked Have you smoked in the past 12 months: No Aproximately how many cigarettes per day: 0 If you are a former smoker, when did you quit?: as a teenager - Social History Usual Living Arrangement: Alone ADL: Independent Occupation: not employed History of Recent Travel: No Home Medications - Allergies Allergies/Adverse Reactions: Allergies Allergy/AdvReac Type Severity Reaction Status Date / Time quetiapine fumarate Allergy Unknown hypotension Verified 05/14/18 00:22 [From Seroquel] - Home Medications Home Medications: Ambulatory Orders Insulin Pump Syringe, 3 ml [Paradigm] 1 each MC ASDIR 10/04/13 Pregabalin [Lyrica -] 150 mg PO TID 09/22/14 Lubiprostone [Amitiza] 24 mcg PO DAILY PRN 06/05/17 Ondansetron [Zofran *Odt*] 8 mg PO PRN 06/05/17 Sennosides [Senna] 8.6 mg PO PRN 06/05/17 Buprenorphine/Naloxone [Suboxone 8Mg/2Mg Sl Film -] 1 each SL Q12H 05/14/18 Ranitidine [Zantac -] 150 mg PO BID 05/14/18 Metoclopramide HCl [Reglan -] 10 mg PO Q6H PRN #120 tablet 05/15/18 Levothyroxine [Synthroid -] 125 mcg PO DAILY@0700 #30 tablet 05/17/18 Review of Systems - Review of Systems Constitutional: reports: No Symptoms Eyes: reports: No Symptoms HENT: reports: No Symptoms Neck: reports: No Symptoms Cardiovascular: reports: No Symptoms Respiratory: reports: No Symptoms Gastrointestinal: reports: Abdominal Pain, Constipation, Nausea Genitourinary: reports: No Symptoms Breasts: reports: No Symptoms Reported Musculoskeletal: reports: No Symptoms Integumentary: reports: No Symptoms Neurological: reports: No Symptoms Endocrine: reports: No Symptoms Hematology/Lymphatic: reports: No Symptoms Psychiatric: reports: No Symptoms Physical Exam-GI Vital Signs: Vital Signs Temperature 97.6 F 04/16/19 05:21 Pulse Rate 93 H 04/16/19 05:21 Respiratory Rate 18 04/16/19 05:21 Blood Pressure 139/95 04/16/19 05:21 O2 Sat by Pulse Oximetry (%) 99 04/16/19 04:00 Constitutional: Yes: No Distress, Calm Eyes: Yes: Conjunctiva Clear HENT: Yes: Atraumatic Cardiovascular: Yes: Regular Rate and Rhythm Respiratory: Yes: Regular, CTA Bilaterally Gastrointestinal Inspection: Yes: WNL. No: Ascites, Distention, Hernia, Scars, Other ...Auscultate: Yes: Normoactive Bowel Sounds. No: Hyperactive Bowel Sounds, Hypoactive Bowel Sounds, No Bowel Sounds, Other ...Palpate: Yes: Soft, Tenderness, Epigastium (radiates to LUQ). No: Firm/Rigid , Guarding, Hepatomegaly, Mass, Pulsatile Mass, Splenomegaly, Tenderness, Tenderness, Rebound, Other ...Percussion: Yes: Tympanitic. No: Dullness, Fluid Wave, Other Neurological: Yes: Alert, Oriented Psychiatric: Yes: Alert, Oriented Labs: CBC, BMP 04/16/19 06:40 04/16/19 06:40 Problem List - Problems (1) Nausea Assessment/Plan: >secondary to Gastroparesis >Pantoprazole >Reglan TID AC >will need to follow up as outpatient for scheduled EGD Code(s): R11.0 - NAUSEA (2) Epigastric pain Assessment/Plan: >Abdomen/Pelvic CT scan Code(s): R10.13 - EPIGASTRIC PAIN
[2019-04-16] MEDS ORDERED: INSULIN (NOVOLOG) ASPART 100 UNITS/ML 10ML VIAL ONE (09:09)
[2019-04-16] MEDS: BACITRACIN 15 GM TUBE TOPICAL OINTMENT TP SCH (09:39)
[2019-04-16] MEDS: PANTOPRAZOLE 40 MG TABLET (FP) PO SCH (09:40)
[2019-04-16] MEDS: POLYETHYLENE GLYCOL 3350 119 GM BTL PO SCH (09:40)
[2019-04-16] MEDS: HEPARIN NA (PORCINE) 5,000 UNITS/ML 1ML VIAL SQ SCH ×2 (09:40→22:43)
[2019-04-16] MEDS: DULoxetine HCL 30 MG CAPSULE.DR PO SCH (09:40)
[2019-04-16] MEDS: BUPRENORPHINE/NALOXONE 8 MG/2 MG FILM PACKET SL SCH ×2 (10:26→21:56)
[2019-04-16] MEDS: METOCLOPRAMIDE HCL 10 MG TABLET (FP) PO SCH ×2 (10:26→17:05)
[2019-04-16] MEDS: INSULIN PUMP MC SCH (11:18)
[2019-04-16] MEDS ORDERED: ONDANSETRON 4 MG/2 ML VIAL IVPUSH ONE (11:21)
--- NOTE | 2019-04-16 11:23 | PN ---
Progress Note, Physician Chief Complaint: patient seen and examined awaiting to go down for CT scan - Current Medication List Current Medications: Active Medications Bacitracin (Bacitracin -) 1 applic TP DAILY [facility] Last Admin: 04/16/19 09:39 Dose: 1 applic Buprenorphine/Naloxone (Suboxone 8 Mg/2 Mg Film Packet) 1 each SL Q12H [facility] Last Admin: 04/16/19 10:26 Dose: 1 each Duloxetine HCl (Cymbalta -) 30 mg PO DAILY [facility] Last Admin: 04/16/19 09:40 Dose: 30 mg Heparin Sodium (Porcine) (Heparin -) 5,000 unit SQ BID [facility] Last Admin: 04/16/19 09:40 Dose: 5,000 unit Clindamycin Phosphate (Cleocin 300 Mg Premix Ivpb) 300 mg in 50 mls @ 100 mls/ hr IVPB Q8H-IV [facility] Last Admin: 04/16/19 09:39 Dose: 100 mls/hr Insulin Aspart (Novolog Vial Sliding Scale -) 1 vial SQ ACHS [facility]; Protocol Last Admin: 04/16/19 10:31 Dose: Not Given Levothyroxine Sodium (Synthroid -) 125 mcg PO DAILY@0700 [facility] Last Admin: 04/16/19 06:09 Dose: 125 mcg Metoclopramide HCl (Reglan -) 5 mg PO TIDAC [facility] Last Admin: 04/16/19 10:26 Dose: 5 mg Non-Formulary Medication (Insulin Pump Syringe, 3 Ml [Paradigm]) 1 each MC ASDIR [facility] Last Admin: 04/16/19 11:18 Dose: 1 each Ondansetron HCl (Zofran Injection) 4 mg IVPUSH ONCE ONE Stop: 04/16/19 11:22 Oxymetazoline HCl (Afrin -) 2 spray NS BID PRN PRN Reason: NASAL CONGESTION Last Admin: 04/16/19 01:30 Dose: 2 sprays Pantoprazole Sodium (Protonix -) 40 mg PO DAILY [facility] Last Admin: 04/16/19 09:40 Dose: 40 mg Polyethylene Glycol (Miralax (For Daily Use) -) 17 gm PO DAILY [facility] Last Admin: 04/16/19 09:40 Dose: 17 gm Pregabalin (Lyrica -) 150 mg PO TID [facility] Last Admin: 04/16/19 05:20 Dose: 150 mg Senna (Senna -) 2 tab PO HS [facility] Last Admin: 04/15/19 21:30 Dose: 2 tab - Objective Vital Signs: Vital Signs Temperature 97.8 F 04/16/19 10:00 Pulse Rate 91 H 04/16/19 10:00 Respiratory Rate 18 04/16/19 10:00 Blood Pressure 125/77 04/16/19 10:00 O2 Sat by Pulse Oximetry (%) 99 04/16/19 04:00 Constitutional: Yes: Calm Cardiovascular: Yes: Regular Rate and Rhythm, S1, S2 Respiratory: Yes: CTA Bilaterally Gastrointestinal: Yes: Normal Bowel Sounds, Soft Labs: CBC, BMP 04/16/19 06:40 04/16/19 06:40 Problem List - Problems (1) JEFFERY (acute kidney injury) Assessment/Plan: improved with IVF Code(s): N17.9 - ACUTE KIDNEY FAILURE, UNSPECIFIED (2) Inguinal abscess Assessment/Plan: s/p Incision and drainage on iv clindamycin ID consulted Code(s): L02.214 - CUTANEOUS ABSCESS OF GROIN (3) Hyperglycemia due to type 1 diabetes mellitus Assessment/Plan: bgm endocrine consult Code(s): E10.65 - TYPE 1 DIABETES MELLITUS WITH HYPERGLYCEMIA (4) Hypothyroidism Assessment/Plan: synthroid tsh check Code(s): E03.9 - HYPOTHYROIDISM, UNSPECIFIED (5) Epigastric pain Assessment/Plan: awaiting cct scan of abdomen Code(s): R10.13 - EPIGASTRIC PAIN (6) Gastroparesis Assessment/Plan: reglan tid Code(s): K31.84 - GASTROPARESIS
[2019-04-16] MEDS: SENNOSIDES 8.6MG TABLET (FP) PO SCH (21:56)
[2019-04-17] MEDS ORDERED: PT OWN MED DRAWER 7, Y5N ONE ×5 (02:26→17:30)
[2019-04-17] MEDS: CLINDAMYCIN 300 MG PREMIX IVPB 300 MG/50 ML BAG IVPB SCH ×2 (02:43→09:47)
[2019-04-17] MEDS: INSULIN SLIDING SCALE (NOVOLOG) 1 VIAL SQ SCH ×5 (02:46→21:08)
[2019-04-17] MEDS: LEVOTHYROXINE NA 150 MCG TABLET PO SCH (06:10)
[2019-04-17] MEDS: PREGABALIN 75 MG CAPSULE PO SCH ×3 (06:11→21:07)
[2019-04-17] MEDS: METOCLOPRAMIDE HCL 10 MG TABLET (FP) PO SCH ×3 (06:11→16:22)
[2019-04-17] MEDS: OXYMETAZOLINE 0.05% NASAL SOLUTION 15 ML BOTTLE NS PRN (06:13)
--- NOTE | 2019-04-17 07:34 | PN.GI ---
GI Progress Note Subjective: Patient states epigastric pain is improving but continues to have nausea. Abd/ Pelvic CT scan reviewed and shows fatty liver, moderate atrophic pancreas, moderate retention of stool without significant impaction. - Objective Vital Signs: Vital Signs Temperature 97.9 F 04/17/19 06:00 Pulse Rate 100 H 04/17/19 06:00 Respiratory Rate 18 04/17/19 06:00 Blood Pressure 119/72 04/17/19 06:00 O2 Sat by Pulse Oximetry (%) 100 04/17/19 04:00 Constitutional: No Distress, Calm Eyes: Yes: Conjunctiva Clear HENT: Yes: Atraumatic Cardiovascular: Yes: Regular Rate and Rhythm Respiratory: Yes: Regular, CTA Bilaterally Gastrointestinal Inspection: Yes: WNL. No: Ascites, Distention, Hernia, Scars, Other ...Auscultate: Yes: Normoactive Bowel Sounds. No: Hyperactive Bowel Sounds, Hypoactive Bowel Sounds, No Bowel Sounds, Other ...Palpate: Yes: Soft. No: Firm/Rigid, Guarding, Hepatomegaly, Mass, Pulsatile Mass, Splenomegaly, Tenderness, Tenderness, Epigastium, Tenderness, Rebound, Other ...Percussion: Yes: Tympanitic. No: Dullness, Fluid Wave, Other Neurological: Yes: Alert, Oriented Psychiatric: Yes: Alert, Oriented Labs: CBC, BMP 04/16/19 06:40 04/16/19 06:40 Active Medications Generic Name Dose Route Start Last Admin Trade Name Freq PRN Reason Stop Dose Admin Bacitracin 1 applic 04/16/19 10:00 04/16/19 09:39 Bacitracin - TP 1 applic DAILY [facility] Administration Buprenorphine/Naloxone 1 each 04/15/19 22:45 04/16/19 21:56 Suboxone 8 Mg/2 Mg Film Packet SL 1 each Q12H [facility] Administration Duloxetine HCl 30 mg 04/16/19 10:00 04/16/19 09:40 Cymbalta - PO 30 mg DAILY [facility] Administration Heparin Sodium (Porcine) 5,000 unit 04/15/19 22:00 04/16/19 22:43 Heparin - SQ 5,000 unit BID [facility] Administration Clindamycin Phosphate 300 mg in 50 mls @ 100 mls/hr 04/15/19 18:00 04/17/19 02:43 Cleocin 300 Mg Premix Ivpb IVPB 100 mls/hr Q8H-IV [facility] Administration Insulin Aspart 1 vial 04/15/19 16:30 04/17/19 06:11 Novolog Vial Sliding Scale - SQ Not Given ACHS [facility] Protocol Levothyroxine Sodium 150 mcg 04/16/19 11:23 04/17/19 06:10 Synthroid - PO 150 mcg DAILY@0700 [facility] Administration Metoclopramide HCl 5 mg 04/16/19 11:00 04/17/19 06:11 Reglan - PO 5 mg TIDAC [facility] Administration Non-Formulary Medication 1 each 04/15/19 11:16 04/16/19 11:18 Insulin Pump Syringe, 3 Ml [Paradigm] MC 1 each ASDIR [facility] Administration Oxymetazoline HCl 2 spray 04/16/19 01:15 04/17/19 06:13 Afrin - NS 2 sprays BID PRN Administration NASAL CONGESTION Pantoprazole Sodium 40 mg 04/16/19 10:00 04/16/19 09:40 Protonix - PO 40 mg DAILY [facility] Administration Polyethylene Glycol 17 gm 04/15/19 16:45 04/16/19 09:40 Miralax (For Daily Use) - PO 17 gm DAILY [facility] Administration Pregabalin 150 mg 04/15/19 14:00 04/17/19 06:11 Lyrica - PO 150 mg TID [facility] Administration Senna 2 tab 04/15/19 22:00 04/16/19 21:56 Senna - PO 2 tab HS [facility] Administration Problem List - Problems (1) Nausea Assessment/Plan: >secondary to Gastroparesis >Pantoprazole >Reglan TID AC >instructed to follow up as outpatient for scheduled EGD Code(s): R11.0 - NAUSEA (2) Epigastric pain Assessment/Plan: >Abdomen/Pelvic CT scan Code(s): R10.13 - EPIGASTRIC PAIN (3) Constipation Assessment/Plan: >Miralax and Senna Code(s): K59.00 - CONSTIPATION, UNSPECIFIED
[2019-04-17] MEDS: BACITRACIN 15 GM TUBE TOPICAL OINTMENT TP SCH (09:47)
[2019-04-17] MEDS: BUPRENORPHINE/NALOXONE 8 MG/2 MG FILM PACKET SL SCH ×2 (09:48→21:53)
[2019-04-17] MEDS: POLYETHYLENE GLYCOL 3350 119 GM BTL PO SCH (09:48)
[2019-04-17] MEDS: DULoxetine HCL 30 MG CAPSULE.DR PO SCH (09:48)
[2019-04-17] MEDS: PANTOPRAZOLE 40 MG TABLET (FP) PO SCH (09:48)
[2019-04-17] MEDS: HEPARIN NA (PORCINE) 5,000 UNITS/ML 1ML VIAL SQ SCH ×2 (09:48→21:08)
[2019-04-17] MEDS: INSULIN PUMP MC SCH (11:16)
--- NOTE | 2019-04-17 14:38 | PN ---
Progress Note, Physician Chief Complaint: Hyperglycemia Inguinal Abscess History of Present Illness: Previous notes and events reviewed awake and alert NAD epigastric pain improving continue with nausea switched to PO antibiotics complain of pain to bladder stimulator site at R hip~urology consulted - Current Medication List Current Medications: Active Medications Bacitracin (Bacitracin -) 1 applic TP DAILY [facility] Last Admin: 04/17/19 09:47 Dose: 1 applic Buprenorphine/Naloxone (Suboxone 8 Mg/2 Mg Film Packet) 1 each SL Q12H [facility] Last Admin: 04/17/19 09:48 Dose: 1 each Clindamycin HCl (Cleocin -) 300 mg PO TID [facility] Duloxetine HCl (Cymbalta -) 30 mg PO DAILY [facility] Last Admin: 04/17/19 09:48 Dose: 30 mg Heparin Sodium (Porcine) (Heparin -) 5,000 unit SQ BID [facility] Last Admin: 04/17/19 09:48 Dose: Not Given Insulin Aspart (Novolog Vial Sliding Scale -) 1 vial SQ [facility]; Protocol Last Admin: 04/17/19 11:16 Dose: Not Given Levothyroxine Sodium (Synthroid -) 150 mcg PO DAILY@0700 [facility] Last Admin: 04/17/19 06:10 Dose: 150 mcg Metoclopramide HCl (Reglan -) 5 mg PO TIDAC [facility] Last Admin: 04/17/19 11:16 Dose: 5 mg Non-Formulary Medication (Insulin Pump Syringe, 3 Ml [Paradigm]) 1 each MC ASDIR [facility] Last Admin: 04/17/19 11:16 Dose: 1 each Oxymetazoline HCl (Afrin -) 2 spray NS BID PRN PRN Reason: NASAL CONGESTION Last Admin: 04/17/19 06:13 Dose: 2 sprays Pantoprazole Sodium (Protonix -) 40 mg PO DAILY [facility] Last Admin: 04/17/19 09:48 Dose: 40 mg Polyethylene Glycol (Miralax (For Daily Use) -) 17 gm PO DAILY [facility] Last Admin: 04/17/19 09:48 Dose: 17 gm Pregabalin (Lyrica -) 150 mg PO TID [facility] Last Admin: 04/17/19 13:03 Dose: 150 mg Senna (Senna -) 2 tab PO HS [facility] Last Admin: 04/16/19 21:56 Dose: 2 tab - Objective Vital Signs: Vital Signs Temperature 97.4 F L 04/17/19 10:00 Pulse Rate 93 H 04/17/19 10:00 Respiratory Rate 18 04/17/19 10:00 Blood Pressure 121/76 04/17/19 10:00 O2 Sat by Pulse Oximetry (%) 99 04/17/19 10:00 Constitutional: Yes: No Distress, Calm Eyes: Yes: Conjunctiva Clear HENT: Yes: Atraumatic Cardiovascular: Yes: Regular Rate and Rhythm Respiratory: Yes: Regular, CTA Bilaterally Gastrointestinal: Yes: Normal Bowel Sounds, Soft Musculoskeletal: Yes: WNL Extremities: Yes: WNL Edema: No Neurological: Yes: Alert, Oriented Psychiatric: Yes: Alert, Oriented Labs: CBC, BMP 04/16/19 06:40 04/16/19 06:40 Problem List - Problems (1) Inguinal abscess Assessment/Plan: -I&D done -ID on board -Clindamycin -afebrile -no leukocytosis - Code(s): L02.214 - CUTANEOUS ABSCESS OF GROIN (2) Constipation Assessment/Plan: -Miralax Code(s): K59.00 - CONSTIPATION, UNSPECIFIED (3) IDDM (insulin dependent diabetes mellitus) Assessment/Plan: -Endocrinology on board -Insulin pump -BGM ACHS -A1c 8.4% -ISS Code(s): E11.9 - TYPE 2 DIABETES MELLITUS WITHOUT COMPLICATIONS; Z79.4 - GROUP HOME (CURRENT) USE OF INSULIN (4) Nausea and vomiting Assessment/Plan: -GI on board -Regaln TID AC -Pantoprazole -CTAP shows moderate retention of stool Code(s): R11.2 - NAUSEA WITH VOMITING, UNSPECIFIED Assessment/Plan see problem list dvt ppx d/c home after evaluated by urology
[2019-04-17] MEDS ORDERED: INSULIN (NOVOLOG) ASPART 100 UNITS/ML 10ML VIAL ONE (17:29)
[2019-04-17] MEDS: SENNOSIDES 8.6MG TABLET (FP) PO SCH (21:08)
[2019-04-17] MEDS ORDERED: ONDANSETRON 4 MG/2 ML VIAL IVPUSH ONE (21:16)
[2019-04-17] MEDS ORDERED: CLINDAMYCIN HCL 300 MG CAPSULE PO SCH (22:00)
[2019-04-17] MEDS ORDERED: DEXTROSE 50%-WATER - 25 GM/50 ML VIAL IVPUSH ONE (23:12)
--- NOTE | 2019-04-17 23:17 | PN ---
Progress Note, Physician Chief Complaint: hip pain and toe pain - Current Medication List Current Medications: Active Medications Bacitracin (Bacitracin -) 1 applic TP DAILY [facility] Last Admin: 04/17/19 09:47 Dose: 1 applic Buprenorphine/Naloxone (Suboxone 8 Mg/2 Mg Film Packet) 1 each SL Q12H [facility] Last Admin: 04/17/19 21:53 Dose: 1 each Clindamycin HCl (Cleocin -) 300 mg PO TID [facility] Duloxetine HCl (Cymbalta -) 30 mg PO DAILY [facility] Last Admin: 04/17/19 09:48 Dose: 30 mg Heparin Sodium (Porcine) (Heparin -) 5,000 unit SQ BID [facility] Last Admin: 04/17/19 21:08 Dose: 5,000 unit Insulin Aspart (Novolog Vial Sliding Scale -) 1 vial SQ ACHS [facility]; Protocol Last Admin: 04/17/19 21:08 Dose: Not Given Levothyroxine Sodium (Synthroid -) 150 mcg PO DAILY@0700 [facility] Last Admin: 04/17/19 06:10 Dose: 150 mcg Metoclopramide HCl (Reglan -) 5 mg PO TIDAC [facility] Last Admin: 04/17/19 16:22 Dose: 5 mg Non-Formulary Medication (Insulin Pump Syringe, 3 Ml [Paradigm]) 1 each MC ASDIR [facility] Last Admin: 04/17/19 11:16 Dose: 1 each Oxymetazoline HCl (Afrin -) 2 spray NS BID PRN PRN Reason: NASAL CONGESTION Last Admin: 04/17/19 06:13 Dose: 2 sprays Pantoprazole Sodium (Protonix -) 40 mg PO DAILY [facility] Last Admin: 04/17/19 09:48 Dose: 40 mg Polyethylene Glycol (Miralax (For Daily Use) -) 17 gm PO DAILY [facility] Last Admin: 04/17/19 09:48 Dose: 17 gm Pregabalin (Lyrica -) 150 mg PO TID [facility] Last Admin: 04/17/19 21:07 Dose: 150 mg Senna (Senna -) 2 tab PO HS [facility] Last Admin: 04/17/19 21:08 Dose: 2 tab - Objective Vital Signs: Vital Signs Temperature 98.6 F 04/17/19 21:33 Pulse Rate 95 H 04/17/19 21:33 Respiratory Rate 18 04/17/19 21:33 Blood Pressure 138/77 04/17/19 21:33 O2 Sat by Pulse Oximetry (%) 99 04/17/19 21:00 Constitutional: Yes: Anxious Eyes: Yes: EOM Intact HENT: Yes: Normocephalic Neck: Yes: Trachea Midline Cardiovascular: Yes: Regular Rate and Rhythm Respiratory: Yes: CTA Bilaterally Gastrointestinal: Yes: Normal Bowel Sounds ...Rectal Exam: Yes: Deferred Genitourinary: Yes: WNL Musculoskeletal: Yes: Joint Swelling, Muscle Weakness Extremities: Yes: Delayed Capillary Refill Peripheral Pulses WNL: Yes Integumentary: Yes: Onychomycosis Wound/Incision: Yes: Dressing Dry and Intact Neurological: Yes: Alert, Oriented Labs: CBC, BMP 04/16/19 06:40 04/16/19 06:40 Problem List - Problems (1) JEFFERY (acute kidney injury) Code(s): N17.9 - ACUTE KIDNEY FAILURE, UNSPECIFIED (2) Chest pain at rest Code(s): R07.9 - CHEST PAIN, UNSPECIFIED (3) Depression Code(s): F32.9 - MAJOR DEPRESSIVE DISORDER, SINGLE EPISODE, UNSPECIFIED (4) Elevated beta-hydroxybutyrate Code(s): R78.89 - FINDING OF OTH SUBSTANCES, NOT NORMALLY FOUND IN BLOOD (5) Gastroparesis Code(s): K31.84 - GASTROPARESIS (6) HLD (hyperlipidemia) Code(s): E78.5 - HYPERLIPIDEMIA, UNSPECIFIED (7) HTN (hypertension) Code(s): I10 - ESSENTIAL (PRIMARY) HYPERTENSION (8) Hyperglycemia due to type 1 diabetes mellitus Code(s): E10.65 - TYPE 1 DIABETES MELLITUS WITH HYPERGLYCEMIA Assessment/Plan Current Active Problems JEFFERY (acute kidney injury) (Acute) Chest pain at rest (Acute) Depression (Acute) Elevated beta-hydroxybutyrate (Acute) Epigastric pain (Acute) Gastroparesis (Acute) HLD (hyperlipidemia) (Acute) HTN (hypertension) (Acute) Hyperglycemia due to type 1 diabetes mellitus (Acute) Inguinal abscess (Acute) Inguinal abscess (Acute) Nausea (Acute) Shortness of breath (Acute) Laboratory Results - last 24 hr 04/17/19 04/17/19 04/17/19 06:09 11:14 16:20 POC Glucometer 138 144 97 04/17/19 04/17/19 20:47 23:03 POC Glucometer 128 40 plan: consult podiatry callus dm neuropathy continue insulin pump basal bolus setting for novolog scale
[2019-04-17] MEDS ORDERED: DEXTROSE 50%-WATER - 25 GM/50 ML VIAL ONE (23:19)
[2019-04-18] MEDS: LEVOTHYROXINE NA 150 MCG TABLET PO SCH (06:08)
[2019-04-18] MEDS: PREGABALIN 75 MG CAPSULE PO SCH ×2 (06:08→14:10)
[2019-04-18] MEDS: INSULIN SLIDING SCALE (NOVOLOG) 1 VIAL SQ SCH ×2 (06:08→12:26)
[2019-04-18] MEDS: METOCLOPRAMIDE HCL 10 MG TABLET (FP) PO SCH ×2 (06:08→12:16)
[2019-04-18] MEDS: CLINDAMYCIN HCL 150 MG CAPSULE (FP) PO SCH ×2 (06:09→14:10)
[2019-04-18] MEDS ORDERED: DEXTROSE 50%-WATER - 25 GM/50 ML VIAL IVPUSH ONE (06:41)
[2019-04-18 07:41] LABS: HEMATOCRIT 39.5 % (35.4-49); HEMOGLOBIN 13.6 GM/dL (11.7-16.9); MCHC 34.5 g/dl (32.0-35.9); MEAN PLT VOLUME 10.3 fl (7.5-11.1); PLATELET COUNT 216 K/MM3 (134-434); RBC 4.54 M/mm3 (4.00-5.60); RDW 13.6 % (11.9-15.9); WHITE BLOOD COUNT 2.9 K/mm3 (4.0-10.0)
[2019-04-18 07:53] LABS: BILIRUBIN,TOTAL 0.5 mg/dL (0.2-1); BLOOD UREA NITROGEN 15.6 mg/dL (7-18); CALCIUM 9.7 mg/dL (8.5-10.1); CREATININE 0.9 mg/dL (0.55-1.3); POTASSIUM 4.3 mmol/L (3.5-5.1); TOT PROT 7.5 g/dl (6.4-8.2)
[2019-04-18] MEDS: DULoxetine HCL 30 MG CAPSULE.DR PO SCH ×2 (08:30→09:30)
[2019-04-18] MEDS: PANTOPRAZOLE 40 MG TABLET (FP) PO SCH ×2 (08:30→09:30)
[2019-04-18] MEDS: POLYETHYLENE GLYCOL 3350 119 GM BTL PO SCH ×2 (08:30→09:30)
[2019-04-18] MEDS: BUPRENORPHINE/NALOXONE 8 MG/2 MG FILM PACKET SL SCH (09:52)
[2019-04-18] MEDS: HEPARIN NA (PORCINE) 5,000 UNITS/ML 1ML VIAL SQ SCH (09:53)
[2019-04-18] MEDS: BACITRACIN 15 GM TUBE TOPICAL OINTMENT TP SCH (09:54)
[2019-04-18] MEDS ORDERED: INSULIN (NOVOLOG) ASPART 100 UNITS/ML 10ML VIAL ONE (12:15)
[2019-04-18] MEDS: INSULIN PUMP MC SCH (12:16)
--- NOTE | 2019-04-18 12:35 | CONSULT ---
Consult Consult Specialty:: Podiatry Reason for Consultation:: Painful 3rd toe left - History of Present Illness History of Present Illness: Stated banged his toe 2 weeks ago. 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: Yes: Peripheral Neuropathy Cardio/Vascular: Yes: HTN, Hyperlipdemia Gastrointestinal: Yes: Gastritis Renal/: Yes: Renal Calculi Psych: Yes: Depression Musculoskeletal: Yes: Chronic low back pain Endocrine: Yes: Diabetes Mellitus - Past Surgical History Past Surgical History: Yes: Appendectomy - Alcohol/Substance Use Hx Alcohol Use: No History of Substance Use: reports: Marijuana Date of Last Use: 04/12/19 (daily use ) - Smoking History Smoking history: Never smoked Have you smoked in the past 12 months: No Aproximately how many cigarettes per day: 0 If you are a former smoker, when did you quit?: as a teenager - Social History Usual Living Arrangement: Alone ADL: Independent Occupation: not employed History of Recent Travel: No Home Medications - Allergies Allergies/Adverse Reactions: Allergies Allergy/AdvReac Type Severity Reaction Status Date / Time quetiapine fumarate Allergy Unknown hypotension Verified 05/14/18 00:22 [From Seroquel] - Home Medications Home Medications: Ambulatory Orders Insulin Pump Syringe, 3 ml [Paradigm] 1 each MC ASDIR 10/04/13 Pregabalin [Lyrica -] 150 mg PO TID 09/22/14 Lubiprostone [Amitiza] 24 mcg PO DAILY PRN 06/05/17 Ondansetron [Zofran *Odt*] 8 mg PO PRN 06/05/17 Sennosides [Senna] 8.6 mg PO PRN 06/05/17 Buprenorphine/Naloxone [Suboxone 8Mg/2Mg Sl Film -] 1 each SL Q12H 05/14/18 Ranitidine [Zantac -] 150 mg PO BID 05/14/18 Metoclopramide HCl [Reglan -] 10 mg PO Q6H PRN #120 tablet 05/15/18 Levothyroxine [Synthroid -] 125 mcg PO DAILY@0700 #30 tablet 05/17/18 Physical Exam Vital Signs: Vital Signs Temperature 98.7 F 04/18/19 10:00 Pulse Rate 96 H 04/18/19 10:00 Respiratory Rate 18 04/18/19 10:00 Blood Pressure 131/84 04/18/19 10:00 O2 Sat by Pulse Oximetry (%) 99 04/17/19 21:00 Extremities: Yes: Other (vsgi, +neuropathic foot, -cellulitis, -drainage, - tender) Labs: CBC, BMP 04/18/19 06:15 04/18/19 06:15 Assessment/Plan r/o fracture Xray ordered. Discussed diabetic fot care. will follow.
--- NOTE | 2019-04-18 13:37 | PN ---
Progress Note, Physician - Current Medication List Current Medications: Active Medications Bacitracin (Bacitracin -) 1 applic TP DAILY [facility] Last Admin: 04/18/19 09:54 Dose: 1 applic Buprenorphine/Naloxone (Suboxone 8 Mg/2 Mg Film Packet) 1 each SL Q12H [facility] Last Admin: 04/18/19 09:52 Dose: 1 each Clindamycin HCl (Cleocin -) 300 mg PO TID [facility] Last Admin: 04/18/19 06:09 Dose: 300 mg Duloxetine HCl (Cymbalta -) 30 mg PO DAILY [facility] Last Admin: 04/18/19 09:30 Dose: Not Given Heparin Sodium (Porcine) (Heparin -) 5,000 unit SQ BID [facility] Last Admin: 04/18/19 09:53 Dose: Not Given Insulin Aspart (Novolog Vial Sliding Scale -) 1 vial SQ ACHS [facility]; Protocol Last Admin: 04/18/19 12:26 Dose: Not Given Levothyroxine Sodium (Synthroid -) 150 mcg PO DAILY@0700 [facility] Last Admin: 04/18/19 06:08 Dose: 150 mcg Metoclopramide HCl (Reglan -) 5 mg PO TIDAC [facility] Last Admin: 04/18/19 12:16 Dose: 5 mg Non-Formulary Medication (Insulin Pump Syringe, 3 Ml [Paradigm]) 1 each MC ASDIR [facility] Last Admin: 04/18/19 12:16 Dose: 1 each Oxymetazoline HCl (Afrin -) 2 spray NS BID PRN PRN Reason: NASAL CONGESTION Last Admin: 04/17/19 06:13 Dose: 2 sprays Pantoprazole Sodium (Protonix -) 40 mg PO DAILY [facility] Last Admin: 04/18/19 09:30 Dose: Not Given Polyethylene Glycol (Miralax (For Daily Use) -) 17 gm PO DAILY [facility] Last Admin: 04/18/19 09:30 Dose: Not Given Pregabalin (Lyrica -) 150 mg PO TID [facility] Last Admin: 04/18/19 06:08 Dose: 150 mg Senna (Senna -) 2 tab PO HS [facility] Last Admin: 04/17/19 21:08 Dose: 2 tab - Objective Vital Signs: Vital Signs Temperature 98.7 F 04/18/19 10:00 Pulse Rate 96 H 04/18/19 10:00 Respiratory Rate 18 04/18/19 10:00 Blood Pressure 131/84 11/13/19 10:00 O2 Sat by Pulse Oximetry (%) 99 04/17/19 21:00 Labs: CBC, BMP 04/18/19 06:15 04/18/19 06:15 Problem List - Problems (1) Inguinal abscess Code(s): L02.214 - CUTANEOUS ABSCESS OF GROIN (2) Constipation Code(s): K59.00 - CONSTIPATION, UNSPECIFIED (3) IDDM (insulin dependent diabetes mellitus) Code(s): E11.9 - TYPE 2 DIABETES MELLITUS WITHOUT COMPLICATIONS; Z79.4 - PRICING DIRECTOR (CURRENT) USE OF INSULIN (4) Nausea and vomiting Code(s): R11.2 - NAUSEA WITH VOMITING, UNSPECIFIED
[2019-04-18] MEDS ORDERED: MAGNESIUM CITRATE 300 ML BOTTLE PO ONE (14:18)
--- NOTE | 2019-04-18 14:25 | DS ---
Physical Examination Vital Signs: Vital Signs Temperature 98.7 F 04/18/19 10:00 Pulse Rate 96 H 04/18/19 10:00 Respiratory Rate 18 04/18/19 10:00 Blood Pressure 131/84 04/18/19 10:00 O2 Sat by Pulse Oximetry (%) 99 04/17/19 21:00 Findings/Remarks: Laboratory Results - last 24 hr 04/17/19 04/17/19 04/17/19 16:20 20:47 23:03 WBC RBC Hgb Hct MCV MCH MCHC RDW Plt Count MPV Sodium Potassium Chloride Carbon Dioxide Anion Gap BUN Creatinine Est GFR (CKD-EPI)AfAm Est GFR (CKD-EPI)NonAf POC Glucometer 97 128 40 Random Glucose Calcium Total Bilirubin AST ALT Alkaline Phosphatase Total Protein Albumin 04/17/19 04/18/19 04/18/19 23:42 05:57 06:15 WBC 2.9 L RBC 4.54 Hgb 13.6 Hct 39.5 MCV 87.0 MCH 30.0 MCHC 34.5 RDW 13.6 Plt Count 216 MPV 10.3 Sodium Potassium Chloride Carbon Dioxide Anion Gap BUN Creatinine Est GFR (CKD-EPI)AfAm Est GFR (CKD-EPI)NonAf POC Glucometer 192 69 Random Glucose Calcium Total Bilirubin AST ALT Alkaline Phosphatase Total Protein Albumin 04/18/19 04/18/19 04/18/19 06:15 06:34 08:01 WBC RBC Hgb Hct MCV MCH MCHC RDW Plt Count MPV Sodium 137 Potassium 4.3 Chloride 100 Carbon Dioxide 33 H Anion Gap 4 L BUN 15.6 Creatinine 0.9 Est GFR (CKD-EPI)AfAm 122.52 Est GFR (CKD-EPI)NonAf 105.71 POC Glucometer 63 106 Random Glucose 49 L* Calcium 9.7 Total Bilirubin 0.5 AST 20 ALT 31 Alkaline Phosphatase 98 Total Protein 7.5 Albumin 4.0 04/18/19 11:33 WBC RBC Hgb Hct MCV MCH MCHC RDW Plt Count MPV Sodium Potassium Chloride Carbon Dioxide Anion Gap BUN Creatinine Est GFR (CKD-EPI)AfAm Est GFR (CKD-EPI)NonAf POC Glucometer 193 Random Glucose Calcium Total Bilirubin AST ALT Alkaline Phosphatase Total Protein Albumin Active Medications Generic Name Dose Route Start Last Admin Trade Name Freq PRN Reason Stop Dose Admin Bacitracin 1 applic 04/16/19 10:00 04/18/19 09:54 Bacitracin - TP 1 applic DAILY SCOTTY Administration Buprenorphine/Naloxone 1 each 04/15/19 22:45 04/18/19 09:52 Suboxone 8 Mg/2 Mg Film Packet SL 1 each Q12H SCOTTY Administration Clindamycin HCl 300 mg 04/18/19 06:00 04/18/19 14:10 Cleocin - PO 300 mg TID SCOTTY Administration Duloxetine HCl 30 mg 04/16/19 10:00 04/18/19 09:30 Cymbalta - PO Not Given DAILY SCOTTY Heparin Sodium (Porcine) 5,000 unit 04/15/19 22:00 04/18/19 09:53 Heparin - SQ Not Given BID SCOTTY Insulin Aspart 1 vial 04/15/19 16:30 04/18/19 12:26 Novolog Vial Sliding Scale - SQ Not Given ACHS [facility] Protocol Levothyroxine Sodium 150 mcg 04/16/19 11:23 04/18/19 06:08 Synthroid - PO 150 mcg DAILY@0700 SCOTTY Administration Magnesium Citrate 300 ml 04/18/19 14:18 Citroma - PO 04/18/19 14:19 ONCE ONE Metoclopramide HCl 5 mg 04/16/19 11:00 04/18/19 12:16 Reglan - PO 5 mg TIDAC SCOTTY Administration Non-Formulary Medication 1 each 04/15/19 11:16 04/18/19 12:16 Insulin Pump Syringe, 3 Ml [Paradigm] MC 1 each ASDIR SCOTTY Administration Oxymetazoline HCl 2 spray 04/16/19 01:15 04/17/19 06:13 Afrin - NS 2 sprays BID PRN Administration NASAL CONGESTION Pantoprazole Sodium 40 mg 04/16/19 10:00 04/18/19 09:30 Protonix - PO Not Given DAILY SCOTTY Polyethylene Glycol 17 gm 04/15/19 16:45 04/18/19 09:30 Miralax (For Daily Use) - PO Not Given DAILY [facility] Pregabalin 150 mg 04/15/19 14:00 04/18/19 14:10 Lyrica - PO 150 mg TID SCOTTY Administration Senna 2 tab 04/15/19 22:00 04/17/19 21:08 Senna - PO 2 tab HS SCOTTY Administration Constitutional: Yes: No Distress, Calm Eyes: Yes: Conjunctiva Clear HENT: Yes: Atraumatic Cardiovascular: Yes: Regular Rate and Rhythm Respiratory: Yes: Regular, CTA Bilaterally Gastrointestinal: Yes: Normal Bowel Sounds, Soft Musculoskeletal: Yes: WNL Extremities: Yes: WNL Edema: No Neurological: Yes: Alert, Oriented Psychiatric: Yes: Alert, Oriented Labs: CBC, BMP 04/18/19 06:15 04/18/19 06:15 Discharge Summary Problems reviewed: Yes Reason For Visit: DIABETIC Current Active Problems JEFFERY (acute kidney injury) (Acute) Chest pain at rest (Acute) Depression (Acute) Elevated beta-hydroxybutyrate (Acute) Epigastric pain (Acute) Gastroparesis (Acute) HLD (hyperlipidemia) (Acute) HTN (hypertension) (Acute) Hyperglycemia due to type 1 diabetes mellitus (Acute) Inguinal abscess (Acute) Inguinal abscess (Acute) Nausea (Acute) Shortness of breath (Acute) Hospital Course: 43 year old male with PMHx of Type I DM, Diabetic retinopathy/neuropathy, Gastroparesis, chronic low back and Neurogenic bladder arrived to ED with complains of elevated blood sugar after his insulin pump was accidentally dislocated last evening, accoridng to patient he replace the device around 6pm and administered 14 units of Humalog. patient also complains of mid-chest pain with sob (states chronic in nature gets on/off feels like a muscle tightness/ knot). Patient denies fever, chills, N/V, constipation, diarrhea, urinary symptoms. Patient had abscess to L groin and I&D performed without adverse reaction. Received IV ABT then switched to PO antibiotics. No leukocytosis noted and afebrile. Restarted on insulin pum and BS have been better controlled. Condition: Stable - Instructions Diet, Activity, Other Instructions: Continue with diabetic diet Made aware to follow up with: Endocrinology Dr Grewal GI Dr Pulliam for outpatient Endoscopy Podiatry Dr Nevarez for foot callus Urologist Dr Crow for bladder stimulator Continue with antibiotics as prescribed continue with medication as prescribed return to ER if develop severe pain, respiratory distress, chest pain Referrals: Ravi Pulliam MD [Staff Physician] - Augustus Grewal MD [Primary Care Provider] - Jair Freedman MD [Staff Physician] - Mimi Nevarez DPM [Staff Physician] - Disposition: HOME - Home Medications Comprehensive Discharge Medication List: Ambulatory Orders Insulin Pump Syringe, 3 ml [Paradigm] 1 each MC ASDIR 10/04/13 Pregabalin [Lyrica -] 150 mg PO TID 09/22/14 Lubiprostone [Amitiza] 24 mcg PO DAILY PRN 06/05/17 Sennosides [Senna] 8.6 mg PO PRN 06/05/17 Buprenorphine/Naloxone [Suboxone 8Mg/2Mg Sl Film -] 1 each SL Q12H 05/14/18 Levothyroxine [Synthroid -] 125 mcg PO DAILY@0700 #30 tablet 05/17/18 Bacitracin - [Bacitracin Topical Ointment -] 1 applic TP DAILY #1 tube 04/18/19 Clindamycin [Cleocin -] 300 mg PO TID #19 capsule 04/18/19 Duloxetine HCl [Cymbalta -] 30 mg PO DAILY #30 capsule. 04/18/19 Metoclopramide HCl [Reglan -] 5 mg PO TIDAC #84 tablet 04/18/19 Oxymetazoline 0.05% Nasal Soln [Afrin -] 2 spray NS BID PRN #1 spray 04/18/19 Pantoprazole Sodium [Protonix -] 40 mg PO DAILY #30 tablet.ec 04/18/19 Polyethylene Glycol 3350 [Miralax 119 gm Btl -] 17 gm PO DAILY #1 bottle
[2019-04-18 14:39] VITALS: BP 134/99; PULSE 110; TEMP 98.4
== END 2019-04-18 19:06 | disposition home or self-care (01) | DRG 982 ==
LOC: JER 18:10 → JERBED 21:12 → J4W 04-13 10:38 → J7W 04-15 11:16 → OBSVTOIN 04-16 11:20
PROVIDERS: ADMIT Family Medicine; ATTEND Family Medicine
PROC: 0Y960ZZ Drainage of Left Inguinal Region, Open Approach (ICD-10-PCS; principal; 2019-04-16)
DX: E10.65 Type 1 diabetes mellitus with hyperglycemia (principal); L02.214 Cutaneous abscess of groin; N17.9 Acute kidney failure, unspecified; M54.5 Low back pain; N31.9 Neuromuscular dysfunction of bladder, unspecified; Z79.4 Long term (current) use of insulin; F32.9 Major depressive disorder, single episode, unspecified; E10.319 Type 1 diabetes mellitus with unspecified diabetic retinopathy without macular edema; E10.40 Type 1 diabetes mellitus with diabetic neuropathy, unspecified; E10.43 Type 1 diabetes mellitus with diabetic autonomic (poly)neuropathy; K59.00 Constipation, unspecified; K31.84 Gastroparesis; E03.9 Hypothyroidism, unspecified; E87.6 Hypokalemia
CPT/HCPCS: 36415; 71045-TC-FY; 74177-TC; 80048; 80053; 80061; 82010; 82550; 82803; 82962; 83036; 83721; 84443; 84484; 85025; 85027; 93005; 93010; 99285-25; G0378; J1644; J7030

== ENCOUNTER 2019-06-19 14:29 | Inpatient (IN) | payer OTHER ==
[2019-06-19] MEDS ORDERED: ONDANSETRON *ODT* 4 MG TABLET ONE (15:00)
[2019-06-19] MEDS ORDERED: FAMOTIDINE 20 MG/50 ML IVPB 20 MG/50 ML MG IVPB ONE ×2 (15:50→17:06)
[2019-06-19] MEDS ORDERED: METOCLOPRAMIDE HCL INJECTION 10 MG/2 ML VIAL IVPUSH ONE (15:50)
[2019-06-19] MEDS ORDERED: morphine CARPU-JECT 4 MG/1 ML DISP.SYRIN IVPUSH ONE ×2 (15:50→22:41)
[2019-06-19] MEDS ORDERED: LACTATED RINGERS SOLUTION 1,000 ML IV STA (15:50)
[2019-06-19] MEDS ORDERED: METOCLOPRAMIDE HCL INJECTION 10 MG/2 ML VIAL ONE (15:55)
[2019-06-19] MEDS ORDERED: morphine SULFATE 4 MG/ML VIAL ONE ×2 (15:56→22:49)
--- NOTE | 2019-06-19 16:19 | PDOC ---
History of Present Illness - General Chief Complaint: Pain Stated Complaint: ABD PAIN,VOMITING Time Seen by Provider: 06/19/19 15:43 History Source: Patient Exam Limitations: Clinical Condition - History of Present Illness Initial Comments: 06/19/19 16:12 Source: Patient, actively dry heaving during interview Endo: Dr. Grewal HPI: 44 yo M PMH IDDM (on Humalog Insulin Pump), diabetic gastroparesis, diabetic retinopathy, peripheral neuropathy, nephrolithiasis who p/w epigastria abdominal pain. Patient reports one day of worsening epigastria, burning abdominal pain, with involvement of left chest and mid/lower back. Endorses one day of bilious, non-bloody emesis, aggravated by PO intake, and subjective fevers/chills. Has had these symptoms multiple times in the past, generally gets admitted but doesn't know the diagnosis. Has a humalog pump. Denies chest pain, cough, recent illness, numbness/tingling, weakness. EMS reports glucose 490 in the field, 230 here initially, 209 on CMP. Allergies: NKDA PMH: As noted above, neurogenic bladder, chronic lower back pain PSH: H/o appendectomy, bladder repair, L shoulder decompression x3, bladder stimulator placement SHx: Denies tobacco, IVDA, ETOH Past History - Travel Traveled outside of the country in the last 30 days: No Close contact w/someone who was outside of country & ill: No - Past Medical History Allergies/Adverse Reactions: Allergies Allergy/AdvReac Type Severity Reaction Status Date / Time quetiapine fumarate Allergy Unknown hypotension Verified 06/19/19 14:57 [From Seroquel] Home Medications: Ambulatory Orders Insulin Pump Syringe, 3 ml [Paradigm] 1 each MC ASDIR 10/04/13 Pregabalin [Lyrica -] 150 mg PO TID 09/22/14 Lubiprostone [Amitiza] 24 mcg PO DAILY PRN 06/05/17 Sennosides [Senna] 8.6 mg PO PRN 06/05/17 Buprenorphine/Naloxone [Suboxone 8Mg/2Mg Sl Film -] 1 each SL Q12H 05/14/18 Levothyroxine [Synthroid -] 125 mcg PO DAILY@0700 #30 tablet 05/17/18 Bacitracin - [Bacitracin Topical Ointment -] 1 applic TP DAILY #1 tube 11/13/19 Clindamycin [Cleocin -] 300 mg PO TID #19 capsule 04/18/19 Duloxetine HCl [Cymbalta -] 30 mg PO DAILY #30 capsule. 04/18/19 Metoclopramide HCl [Reglan -] 5 mg PO TIDAC #84 tablet 04/18/19 Oxymetazoline 0.05% Nasal Soln [Afrin -] 2 spray NS BID PRN #1 spray 04/18/19 Pantoprazole Sodium [Protonix -] 40 mg PO DAILY #30 tablet.ec 04/18/19 Polyethylene Glycol 3350 [Miralax 119 gm Btl -] 17 gm PO DAILY #1 bottle Anemia: Yes Asthma: No Cancer: No Cardiac Disorders: Yes (HEART MURMUR A CHILD; NO MEDS) CVA: No COPD: No CHF: No Dementia: No Diabetes: Yes (IDDM,insulin pump) GI Disorders: Yes (gastroparesis) Disorders: Yes (indweling urinary catherer, prostatic hypertrophy) HTN: Yes Hypercholesterolemia: Yes Liver Disease: No Psychiatric Problems: Yes Seizures: No Thyroid Disease: Yes - Surgical History Abdominal Surgery: No Appendectomy: Yes (age 27) Cardiac Surgery: No Cholecystectomy: No Lung Surgery: No Neurologic Surgery: No Orthopedic Surgery: Yes (Trigger finger release, arthroscopy for bone spur L shoulder) - Immunization History Immunization Up to Date: Yes - Psycho Social/Smoking Cessation Hx Smoking Status: No Smoking History: Never smoked Have you smoked in the past 12 months: No Number of Cigarettes Smoked Daily: 0 If you are a former smoker, when did you quit?: as a teenager Cigars Per Day: 0 Information on smoking cessation initiated: No Hx Alcohol Use: No Drug/Substance Use Hx: Yes (every day marijuana user) Substance Use Type: None Hx Substance Use Treatment: No Review of Systems - Review of Systems Able to Perform ROS?: No (patient actively vomiting) Is the patient limited Polish proficient: Yes *Physical Exam - Vital Signs Last Vital Signs Temp Pulse Resp BP Pulse Ox 84 20 136/84 100 06/19/19 14:57 06/19/19 14:57 06/19/19 14:57 06/19/19 14:57 - Physical Exam 06/19/19 16:26 Vitals reviewed, AFVSS GEN: Uncomfortable, moderate distress, appears stated age. Unclothed, shivering with goosebumps, wretching. AAOx3. HEENT: NCAT, EOMI. Sclera anicteric, non-injected. No facial asymmetry. Moist mucous membranes. Trachea midline. CV: RRR, S1/S2, no murmurs / rubs / gallops appreciated. LUNG: CTAB, normal work of breathing. No wheezes, rales, rhonchi. No cough. GI: Soft, diffusely tender, non-distended, no guarding, no rebound. No masses. Neg CVAT b/l. EXTREMITIES: 2+ distal pulses. No LE edema. No obvious deformities of all extremities. SKIN: Warm, dry, punctate / convalescing erythematous rash on LUE forearm, non- jaundiced. PSYCH: Deferred 2/2 clinical status. NEURO: CN grossly intact. Moving all extremities well. Normal strength and sensation grossly. ED Treatment Course - LABORATORY CBC & Chemistry Diagram: 06/21/19 06:40 06/21/19 06:40 - ADDITIONAL ORDERS Additional order review: Laboratory Results 06/19/19 15:26 POC Glucometer 264 06/19/19 15:26 POC Glucometer 264 Medical Decision Making - Medical Decision Making 06/19/19 16:31 44 yo M PMH IDDM (on Humalog Insulin Pump), Diabetic gastroparesis, nephrolithiasis who p/w epigastria abdominal pain. DDX Includes: DKA vs cyclical emesis syndrome vs gastritis vs gastroparesis vs nephrolithiasis vs less likely r/o dissection, ACS. - CBC, CMP, Mg, Phos, Lipase, VBG - Zofran given en route - Reglan - IVF LR 1L - Pepcid 06/19/19 17:15 - Patient with continued pain / discomfort - 0.3 mg/kg Ketamine in 500cc NS - No acidosis, Glucose 290, no anion gap 06/19/19 18:20 - Patient at CT, self-discontinued IV - New IV placed by Dr. Viveros - Continues to vomit bilious fluid - EK, Sinus, normal axis, prolonged QTc 485, no ischemic morphologies - No Haldol given QT prolongation 06/19/19 19:00 - Patient endorsed to overnight team - F/u CT - Admit Med/Surg, pending CT, Diabetic Gastroporesis 06/19/19 18:51 - Beta-hydroxybuterate 19.6 06/19/19 18:56 - CXR without acute pathology 06/19/19 19:01 CT: - Slightly distended gallbladder without calculi - Atrophic pancreas - Fecal retention Dispo: Med/Surg Inpatient team contacted, awaiting response 06/19/19 19:[address] Watson on Night Team Discharge - Discharge Information Problems reviewed: Yes Clinical Impression/Diagnosis: Persistent vomiting, Nausea and vomiting, IDDM (insulin dependent diabetes mellitus), Gastroparesis, Intractable abdominal pain Abdominal pain Qualifiers: Abdominal location: epigastric Qualified Code(s): R10.13 - Epigastric pain Condition: Stable - Admission Yes - Follow up/Referral - Patient Discharge Instructions - Post Discharge Activity
--- NOTE | 2019-06-19 16:34 | PDOC ---
Attending Attestation - Resident Resident Name: Abdi Malloy - ED Attending Attestation I have performed the following: I have examined & evaluated the patient, The case was reviewed & discussed with the resident, I agree w/resident's findings & plan - HPI HPI: 06/19/19 16:33 HPI: 44 yo M PMH IDDM (on Humalog Insulin Pump), Diabetic gastroparesis, nephrolithiasis who p/w epigastria abdominal pain. Patient reports one day of worsening epigastria, burning abdominal pain, with involvement of left chest and mid/lower back. Endorses one day of bilious, non-bloody emesis, aggravated by PO intake, and subjective fevers/chills. Has had these symptoms multiple times in the past, generally gets admitted but doesn't know the diagnosis. Has a humalog pump. PCP: Dr. Grewal 06/19/19 18:02 - Physicial Exam PE: 06/19/19 16:33 Agree with the resident's HPI and PE as documented in the electronic medical record. unwell appearing, vomiting. EOMI, PERRL, nl conjunctiva, anicteric; neck supple. lungs clear, RRR, abdomen soft diffusely tender. no rebound, guarding. Back nontender. no CVAT> RAND x4, no focal neuro deficits. No peripheral edema. normal color for ethnicity, WWP. 06/19/19 16:34 06/19/19 18:02 - Medical Decision Making 06/19/19 16:34 Vital Signs Temp Pulse Resp BP Pulse Ox 84 20 136/84 100 06/19/19 14:57 06/19/19 14:57 06/19/19 14:57 06/19/19 14:57 VS reviewed, wnl. Differential diagnosis includes hyperglycemia, HHS, DKA, dehydration, infection , pancreatitis, hepatitis, PUD, gastritis, PUD. biliary colic, cholecystitis. ACS, PE Laboratory results are within normal limits, dimer is negative, troponin is negative so unlikely be PE/ACS. Electrolytes also normal, coags normal. No evidence of anemia. Lipase and LFTs unremarkable, no evidence of significant hepatitis or pancreatitis at this time. No acidosis, no anion gap so unlikely to be DKA. Glucose here is 290, patient does not appear to be HHS at this time. Due to the diffuse abdominal pain will pursue CT imaging given the nausea vomiting with bilious nature, nonbloody to evaluate for intra-abdominal process. Will need admission for intractable nausea/vomiting. caution with QTc prolonging agents or antipsychotics given his borderline QTC interval at 485 ms. pt given ketamine for pain control 0.3/mg/kg, but got agitated and dissociated. stopped, will monitor further for events/pain control 06/19/19 18:02 CT unremarkable for acute pathology. atrophic pancreas, likely in setting of DM admit for AP/intractible n/v, supportive care, hydration and pain control Heart Score/ECG Review #1 ECG reviewed & interpreted by me at: 16:55 General ECG Interpretation: Sinus Rhythm, Normal Rate, Normal Intervals Compared to previous ECG there are: No significant change 06/19/19 17:59 EKG normal sinus rhythm 94 bpm, narrow QRS, QTc is borderline prolonged at [address] and T wave segments and morphology normal. Nonspecific T wave abnormalities 06/19/19 18:00
[2019-06-19 16:37] LABS: BASO % 0.5 % (0-2.0); EOS % 0.5 % (0-4.5); HEMATOCRIT 42.9 % (35.4-49); HEMOGLOBIN 14.5 GM/dL (11.7-16.9); LYMPH % 8.4 % (8-40); MCH 29.8 pg (25.7-33.7); MCHC 33.7 g/dl (32.0-35.9); MEAN CELL VOLUME 88.5 fl (80-96); MEAN PLT VOLUME 10.1 fl (7.5-11.1); MONO % 5.6 % (3.8-10.2); PLATELET COUNT 206 K/MM3 (134-434); RBC 4.84 M/mm3 (4.00-5.60); RDW 13.9 % (11.9-15.9); WHITE BLOOD COUNT 7.5 K/mm3 (4.0-10.0)
[2019-06-19 16:57] LABS: INR 1.07 (0.83-1.09); PROTHROMBIN TIME (PATIENT) 12.6 SEC (9.7-13.0)
[2019-06-19 17:00] LABS: ACTIVATED PTT 34.4 SECONDS (25.2-36.5); ALBUMIN 4.3 g/dl (3.4-5.0); BILIRUBIN,TOTAL 0.9 mg/dL (0.2-1); BLOOD UREA NITROGEN 15.9 mg/dL (7-18); CALCIUM 9.4 mg/dL (8.5-10.1); CREATININE 1.3 mg/dL (0.55-1.3); POTASSIUM 3.5 mmol/L (3.5-5.1); TOT PROT 7.8 g/dl (6.4-8.2)
[2019-06-19] MEDS ORDERED: KETAMINE HCL 200 MG/20 ML VIAL IVPB ONE (17:13)
[2019-06-19] MEDS ORDERED: SODIUM CHLORIDE 0.9% 500 ML INFUS.BAG IV ONE (17:14)
[2019-06-19] MEDS ORDERED: KETAMINE HCL 200 MG/20 ML VIAL ONE (17:20)
[2019-06-19 17:30] LABS: VENOUS PC02 32.6 mmHg (38-52); VENOUS PH 7.44 (7.31-7.41)
[2019-06-19 17:37] LABS: VENOUS PO2 < 49 mmHg (28-48)
[2019-06-19] MEDS ORDERED: HALOPERIDOL LACTATE 5 MG/ML IM ONE ×2 (17:54→22:41)
[2019-06-19] MEDS ORDERED: ACETAMINOPHEN 1000 MG/100 ML VIAL (NON FORMULARY) IVPB ONE (18:00)
[2019-06-19 18:13] LABS: MAGNESIUM 1.9 mg/dL (1.8-2.4); PHOSPHOROUS 1.3 mg/dL (2.5-4.9)
[2019-06-19] MEDS ORDERED: ACETAMINOPHEN INJECTION 100 ML IVPB ONE (18:53)
--- NOTE | 2019-06-19 20:03 | PDOC ---
*Physical Exam - Vital Signs Last Vital Signs Temp Pulse Resp BP Pulse Ox 97.8 F 115 H 20 147/107 H 100 06/19/19 19:00 06/19/19 19:00 06/19/19 19:00 06/19/19 19:00 06/19/19 19:00 ED Treatment Course - LABORATORY CBC & Chemistry Diagram: 06/19/19 16:10 06/19/19 16:10 - ADDITIONAL ORDERS Additional order review: Laboratory Results 06/19/19 06/19/19 06/19/19 17:15 16:10 16:10 PT with INR INR PTT (Actin FS) D-Dimer 228 VBG pH 7.44 H POC VBG pCO2 32.6 L POC VBG pO2 < 49 H VBG HCO3 21.6 L VBG O2 Sat (Oriana) 40.4 L VBG Base Excess -1.4 Sodium Potassium Chloride Carbon Dioxide Anion Gap BUN Creatinine Est GFR (CKD-EPI)AfAm Est GFR (CKD-EPI)NonAf POC Glucometer Random Glucose Calcium Phosphorus 1.3 L Magnesium 1.9 Total Bilirubin AST ALT Alkaline Phosphatase Troponin I < 0.02 Total Protein Albumin Lipase Beta-Hydroxybutyrate 19.7 H 06/19/19 06/19/19 06/19/19 16:10 16:10 15:26 PT with INR 12.60 INR 1.07 PTT (Actin FS) 34.4 D-Dimer VBG pH POC VBG pCO2 POC VBG pO2 VBG HCO3 VBG O2 Sat (Oriana) VBG Base Excess Sodium 138 Potassium 3.5 Chloride 103 Carbon Dioxide 24 Anion Gap 10 BUN 15.9 Creatinine 1.3 Est GFR (CKD-EPI)AfAm 78.00 Est GFR (CKD-EPI)NonAf 67.30 POC Glucometer 264 Random Glucose 290 H Calcium 9.4 Phosphorus Magnesium Total Bilirubin 0.9 AST 52 H ALT 70 H Alkaline Phosphatase 100 Troponin I Total Protein 7.8 Albumin 4.3 Lipase 28 L Beta-Hydroxybutyrate 06/19/19 06/19/19 16:10 15:26 RBC 4.84 MCV 88.5 MCHC 33.7 RDW 13.9 MPV 10.1 Neutrophils % 85.0 H D Lymphocytes % 8.4 D Monocytes % 5.6 Eosinophils % 0.5 Basophils % 0.5 POC Glucometer 264 - Medications Given in the ED: ED Medications Discontinued Medications Generic Name Dose Route Start Last Admin Trade Name Freq PRN Reason Stop Dose Admin Acetaminophen 1,000 mg 06/19/19 18:00 06/19/19 18:55 Ofirmev Injection - IVPB 06/19/19 18:01 1,000 mg ONCE ONE Administration Haloperidol 5 mg 06/19/19 17:54 06/19/19 19:07 Haldol Injection (Fast Acting) - IM 06/19/19 17:55 Not Given ONCE ONE Lactated Ringer's 1,000 mls @ 1,000 mls/hr 06/19/19 15:50 06/19/19 16:35 Lactated Ringers Solution IV 06/19/19 16:49 1,000 mls/hr ONCE STA Administration Famotidine/Sodium Chloride 20 mg in 50 mls @ 100 mls/hr 06/19/19 15:50 17:11 Pepcid 20 Mg Premixed Ivpb - IVPB 06/19/19 16:19 100 mls/hr ONCE ONE Administration Ketamine HCl 25 mg 06/19/19 17:13 06/19/19 17:25 Ketalar - IVPB 06/19/19 17:14 25 mg ONCE ONE Administration Metoclopramide HCl 10 mg 06/19/19 15:50 06/19/19 16:35 Reglan Injection - IVPUSH 06/19/19 15:51 10 mg ONCE ONE Administration Morphine Sulfate 4 mg 06/19/19 15:50 06/19/19 16:30 Morphine Injection - IVPUSH 06/19/19 15:51 4 mg ONCE ONE Administration Sodium Chloride 500 ml 06/19/19 17:14 06/19/19 17:25 Normal Saline - IV 06/19/19 17:15 500 ml ONCE ONE Administration Medical Decision Making - Medical Decision Making 06/19/19 20:03 Sign out received from Dr Malloy. Benjamin Pandey is a 44yo man with a PMH of IDDM c/b gastroparesis, retinopathy and neuropathy, h/o DKA, s/p insulin pump, daily marijuana use who presents with epigastric abdominal pain and numerous episodes of vomiting. ED course so far notable for: - Received zofran prior to arrival with no improvement - Given reglan, famotidine, morphine, acetaminophen, ketamine, IVF without notable improvement in symptoms - CT abd/pelvis without acute pathology. Notes significant stool - Labs unremarkable - EKG w/ QTc 485. No additional QT prolonging medications given as pt already received reglan and zofran - [employer] sent for admission for intractable vomiting, PO intolerance, abdominal pain Sign out given to JOSEPH Saxena. Will admit to med/surg on Dr Albarado service. Kya Watson PGY2 Discharge - Discharge Information Problems reviewed: Yes Clinical Impression/Diagnosis: Persistent vomiting, IDDM (insulin dependent diabetes mellitus), Gastroparesis , Intractable abdominal pain Nausea and vomiting Qualifiers: Vomiting type: bilious vomiting Qualified Code(s): R11.14 - Bilious vomiting Abdominal pain Qualifiers: Abdominal location: epigastric Qualified Code(s): R10.13 - Epigastric pain Condition: Stable - Admission Yes - Follow up/Referral Referrals: Augustus Grewal MD [Primary Care Provider] - - Patient Discharge Instructions - Post Discharge Activity
--- NOTE | 2019-06-19 22:22 | HP ---
Admitting History and Physical - Primary Care Physician PCP: Dr. Acosta - Admission Chief Complaint: Abd pain, N/V History of Present Illness: 44 yo M PMH IDDM (on Humalog Insulin Pump), diabetic gastroparesis, diabetic retinopathy, peripheral neuropathy, nephrolithiasis, chronic low back and Neurogenic bladder who p/w epigastria abdominal pain. Patient reports one day of worsening epigastria, burning abdominal pain, with involvement of left chest and mid/lower back. Endorses one day of bilious, non-bloody emesis, aggravated by PO intake, and subjective fevers/chills. Has had these symptoms multiple times in the past, generally gets admitted but doesn't know the diagnosis. 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 Neuropathy Cardiovascular: Yes: HTN, Hyperlipdemia Gastrointestinal: Yes: Gastritis, Other (gastroparesis) Renal/: Yes: Renal Calculi Heme/Onc: Yes: Anemia Psych: Yes: Depression Musculoskeletal: Yes: Chronic low back pain Endocrine: Yes: Diabetes Mellitus - Past Surgical History Past Surgical History: Yes: Appendectomy, Joint Replacement (Trigger finger release, arthroscopy for bone spur L shoulder) - Smoking History Smoking history: Never smoked Have you smoked in the past 12 months: No Aproximately how many cigarettes per day: 0 If you are a former smoker, when did you quit?: as a teenager - Alcohol/Substance Use Hx Alcohol Use: No History of Substance Use: reports: Marijuana Date of Last Use: 06/19/19 (daily use ) - Social History ADL: Independent Occupation: not employed History of Recent Travel: No Home Medications - Allergies Allergies/Adverse Reactions: Allergies Allergy/AdvReac Type Severity Reaction Status Date / Time quetiapine fumarate Allergy Unknown hypotension Verified 06/19/19 14:57 [From Seroquel] - Home Medications Home Medications: Ambulatory Orders Insulin Pump Syringe, 3 ml [Paradigm] 1 each MC ASDIR 10/04/13 Pregabalin [Lyrica -] 150 mg PO TID 09/22/14 Lubiprostone [Amitiza] 24 mcg PO DAILY PRN 06/05/17 Sennosides [Senna] 8.6 mg PO PRN 06/05/17 Buprenorphine/Naloxone [Suboxone 8Mg/2Mg Sl Film -] 1 each SL Q12H 05/14/18 Levothyroxine [Synthroid -] 125 mcg PO DAILY@0700 #30 tablet 05/17/18 Bacitracin - [Bacitracin Topical Ointment -] 1 applic TP DAILY #1 tube 04/18/19 Clindamycin [Cleocin -] 300 mg PO TID #19 capsule 04/18/19 Duloxetine HCl [Cymbalta -] 30 mg PO DAILY #30 capsule. 04/18/19 Metoclopramide HCl [Reglan -] 5 mg PO TIDAC #84 tablet 04/18/19 Oxymetazoline 0.05% Nasal Soln [Afrin -] 2 spray NS BID PRN #1 spray 04/18/19 Pantoprazole Sodium [Protonix -] 40 mg PO DAILY #30 tablet.ec 04/18/19 Polyethylene Glycol 3350 [Miralax 119 gm Btl -] 17 gm PO DAILY #1 bottle Family Medical History Family History: Denies Review of Systems - Review of Systems Constitutional: reports: Chills, Fever Eyes: reports: No Symptoms HENT: reports: No Symptoms Neck: reports: No Symptoms Cardiovascular: reports: Chest Pain Gastrointestinal: reports: Abdominal Pain, Constipation, Nausea, Vomiting Genitourinary: reports: No Symptoms Musculoskeletal: reports: No Symptoms Integumentary: reports: No Symptoms Neurological: reports: No Symptoms Endocrine: reports: No Symptoms Hematology/Lymphatic: reports: No Symptoms Psychiatric: reports: No Symptoms Physical Examination Vital Signs: Vital Signs Temperature 98.3 F 06/19/19 22:07 Pulse Rate 92 H 06/19/19 22:07 Respiratory Rate 20 06/19/19 19:00 Blood Pressure 120/99 06/19/19 22:07 O2 Sat by Pulse Oximetry (%) 100 06/19/19 22:07 Constitutional: Yes: Mild Distress, Thin Eyes: Yes: Conjunctiva Clear, EOM Intact HENT: Yes: Atraumatic, Normocephalic Neck: Yes: Supple, Trachea Midline Cardiovascular: Yes: S1, S2 Respiratory: Yes: Regular, CTA Bilaterally Gastrointestinal: Yes: Normal Bowel Sounds, Soft, Tenderness (epigastric) Renal/: Yes: WNL Extremities: Yes: WNL Edema: No Peripheral Pulses WNL: Yes Neurological: Yes: Alert, Oriented Labs: CBC, BMP 06/19/19 16:10 06/19/19 16:10 Imaging - Results Chest X-ray: Report Reviewed ( CXR without acute pathology) Cat Scan: Report Reviewed (CT ABD: Slightly distended gallbladder without calculi, Atrophic pancreas, Fecal retention) Problem List - Problems (1) Intractable abdominal pain Code(s): R10.9 - UNSPECIFIED ABDOMINAL PAIN (2) Nausea and vomiting Code(s): R11.2 - NAUSEA WITH VOMITING, UNSPECIFIED Qualifiers: Vomiting type: bilious vomiting Qualified Code(s): R11.14 - Bilious vomiting (3) Elevated beta-hydroxybutyrate Code(s): R78.89 - FINDING OF OTH SUBSTANCES, NOT NORMALLY FOUND IN BLOOD (4) Hyperglycemia due to type 1 diabetes mellitus Code(s): E10.65 - TYPE 1 DIABETES MELLITUS WITH HYPERGLYCEMIA (5) Gastroparesis Code(s): K31.84 - GASTROPARESIS (6) Persistent vomiting Code(s): R11.10 - VOMITING, UNSPECIFIED (7) Chest pain due to gastrointestinal reflux disease Code(s): R07.9 - CHEST PAIN, UNSPECIFIED; K21.9 - GASTRO-ESOPHAGEAL REFLUX DISEASE WITHOUT ESOPHAGITIS (8) Chronic back pain Code(s): M54.9 - DORSALGIA, UNSPECIFIED; G89.29 - OTHER CHRONIC PAIN Qualifiers: Back pain location: low back pain Back pain laterality: bilateral Sciatica presence: without sciatica Qualified Code(s): M54.5 - Low back pain; G89.29 - Other chronic pain (9) Constipation Code(s): K59.00 - CONSTIPATION, UNSPECIFIED (10) Depression Code(s): F32.9 - MAJOR DEPRESSIVE DISORDER, SINGLE EPISODE, UNSPECIFIED (11) HLD (hyperlipidemia) Code(s): E78.5 - HYPERLIPIDEMIA, UNSPECIFIED (12) HTN (hypertension) Code(s): I10 - ESSENTIAL (PRIMARY) HYPERTENSION (13) 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 Patient reports one day of worsening epigastria, burning abdominal pain, with involvement of left chest and mid/lower back. Endorses one day of bilious, non-bloody emesis, aggravated by PO intake, and subjective fevers/chills. Has had these symptoms multiple times in the past, generally gets admitted but doesn't know the diagnosis. # Intractable abdominal pain # Type I DM with hyperglyecemia (managed on Humalog pump) # Diabetic Gastroparesis # Persistent vomiting EMS reports glucose 490 in the field, 230 in ED then 209 on CMP CXR without acute pathology CT abd: Slightly distended gallbladder without calculi, Atrophic pancreas and Fecal retention EK, Sinus, normal axis, prolonged QTc 485, no ischemic morphologies beta hydroxybutyrate:19.6 - Pt given Zofran given en route - In ED given: reglan, famotidine, morphine, acetaminophen, ketamine, IVF without improvement in symptoms - Continues to vomit bilious fluid - No relief at 22:48 still in ED, resident ordered imgrou4ng, MgSo4 2gm and morphine 4 mg - Continue with protonix daily - continue with reglan 5mg TID AC - Continue with tigan q6 prn - continue with IV tylenol q6h prn - Continue with morphine 1 mg BID PRN - follow up Endo, GI in AM Elevated Lfts d/t continues vomiting Hypophosphatemia - CT abd: CT abd: Slightly distended gallbladder without calculi, Atrophic pancreas and Fecal retention - supplement with mgSo4 2g x1 - trend lfts, cmp in AM #Chest pain left sided likely musculoskelatal due to persistent vomiting/ abd pain trop: negative EK, Sinus, normal axis, prolonged QTc 485, no ischemic morphologies O2 via NC as needed follow up cardiology if needed #constipation - give bisacodyl Suppository x1 - consider enema if no BM - continue with home meds # h/o HTN/HLD - no routine med - diet controlled # Chronic lower back pain - continue with lyrica 150 mg TID - continue with buprenorphine -safety/fall precaution # Depression - Cymbalta 30 mg daily # Hypothyrodism - Levothyroxine 125 mcg PO DAILY - f/up TSH VTE: heparin SQ FEN: npo except meds x24hrs Dispo: tele Visit type - Emergency Visit Emergency Visit: Yes ED Registration Date: 06/19/19 Care time: The patient presented to the Emergency Department on the above date and was hospitalized for further evaluation of their emergent condition. - New Patient This patient is new to me today: Yes Date on this admission: 06/19/19 - Critical Care Critical Care patient: No
[2019-06-19] MEDS ORDERED: MAGNESIUM SULF 50% (8.12 MEQ/2 ML-1 GM VIAL) IVPB ONE (22:41)
[2019-06-19] MEDS ORDERED: HALOPERIDOL LACTATE 5 MG/ML ONE (22:49)
[2019-06-19] MEDS ORDERED: MAGNESIUM 1GM/D5W - 2 GM/200 ML IVPB IVPB ONE (22:50)
[2019-06-19] MEDS ORDERED: PATIENT'S OWN MEDICATION (NON-FORMULARY) (Lubiprostone [Amitiza] 24 MCG) PO PRN (22:57)
[2019-06-19] MEDS ORDERED: INSULIN PUMP MC SCH (23:00)
[2019-06-19] MEDS ORDERED: TRIMETHOBENZAMIDE HCL 200MG/2ML INJ IM PRN (23:10)
[2019-06-19] MEDS ORDERED: ACETAMINOPHEN 1000 MG/100 ML VIAL (NON FORMULARY) IVPB PRN (23:10)
[2019-06-20 00:20] LABS: PH,URINE 6.5 (5.0-8.0); URINE APPEARANCE CLEAR; URINE BILIRUBIN NEGATIVE (NEGATIVE); URINE COLOR YELLOW; URINE GLUCOSE (UA) 3+ (NEGATIVE); URINE KETONE 2+ (NEGATIVE); URINE LEUK ESTERASE NEGATIVE (NEGATIVE); URINE NITRITE NEGATIVE (NEGATIVE); URINE PROTEIN NEGATIVE (NEGATIVE); URINE UROBILINOGEN 0.2 mg/dL (0.2-1.0)
[2019-06-20] MEDS: BUPRENORPHINE/NALOXONE 8 MG/2 MG FILM PACKET SL SCH ×3 (02:45→22:09)
[2019-06-20] MEDS ORDERED: PREGABALIN 100 MG CAPSULE ONE ×2 (06:26→15:43)
[2019-06-20] MEDS ORDERED: PREGABALIN 50 MG CAPSULE ONE ×2 (06:26→15:43)
[2019-06-20 06:42] LABS: HEMATOCRIT 36.9 % (35.4-49); HEMOGLOBIN 12.6 GM/dL (11.7-16.9); MCH 30.3 pg (25.7-33.7); MEAN CELL VOLUME 88.9 fl (80-96); PLATELET COUNT 186 K/MM3 (134-434); RBC 4.15 M/mm3 (4.00-5.60); RDW 13.8 % (11.9-15.9); WHITE BLOOD COUNT 7.5 K/mm3 (4.0-10.0)
[2019-06-20] MEDS ORDERED: METOCLOPRAMIDE HCL 10 MG TABLET (FP) PO SCH (07:00)
[2019-06-20] MEDS: PREGABALIN 75 MG CAPSULE PO SCH ×3 (07:05→22:08)
[2019-06-20] MEDS: LEVOTHYROXINE NA 125 MCG TABLET (FP) PO SCH (07:06)
[2019-06-20 07:20] LABS: ALBUMIN 3.8 g/dl (3.4-5.0); BILIRUBIN,TOTAL 0.8 mg/dL (0.2-1); CREATININE 1.2 mg/dL (0.55-1.3); POTASSIUM 4.3 mmol/L (3.5-5.1); TOT PROT 7.1 g/dl (6.4-8.2)
--- NOTE | 2019-06-20 08:57 | CON.GI ---
Consult Consult Specialty:: GI Referred by:: Phyllis Saxena NP Reason for Consultation:: Diabetic Gastroparesis - History of Present Illness History of Present Illness: Patient is a 44 y/o male with past medical history of IDDM (on Humalog pump), Diabetic Gastroparesis, Diabetic Retinopathy, Peripheral Neuropathy, Peripheral Neuropathy, Nephrolithiasis, Chronic lower back pain, and Neurogenic bladder. Consult was placed for diabetic gastroparesis. Patient states that yesterday he developed bilious, non-bloody vomiting which began yesterday at 1pm. After the vomiting started he says he developed aching epigastric pain radiating to left chest and back. He says vomiting throughout day was continuous and began to worsen so he came to ER. CTAP done in ER shows slightly distended gallbladder without evidence of calculi and acute cholecystitis. Labs show Lipase 28 and mildly elevated AST 52 and ALT 70. Repeat labs show LFTs now within normal range. Patient complains of constipation. Denies diarrhea, rectal bleeding, melena, blood in stool, or abnormal weight loss. 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 Cardio/Vascular: Yes: HTN, Hyperlipdemia Gastrointestinal: Yes: Gastritis, Other (gastroparesis) Renal/: Yes: Renal Calculi Psych: Yes: Depression Musculoskeletal: Yes: Chronic low back pain Endocrine: Yes: Diabetes Mellitus - Past Surgical History Past Surgical History: Yes: Appendectomy, Joint Replacement (Trigger finger release, arthroscopy for bone spur L shoulder) - Alcohol/Substance Use Hx Alcohol Use: No History of Substance Use: reports: Marijuana Date of Last Use: 06/19/19 (daily use ) - Smoking History Smoking history: Never smoked Have you smoked in the past 12 months: No Aproximately how many cigarettes per day: 0 If you are a former smoker, when did you quit?: as a teenager - Social History Usual Living Arrangement: Alone ADL: Independent Occupation: not employed History of Recent Travel: No Home Medications - Allergies Allergies/Adverse Reactions: Allergies Allergy/AdvReac Type Severity Reaction Status Date / Time quetiapine fumarate Allergy Unknown hypotension Verified 06/19/19 14:57 [From Seroquel] - Home Medications Home Medications: Ambulatory Orders Insulin Pump Syringe, 3 ml [Paradigm] 1 each MC ASDIR 05/01/14 Pregabalin [Lyrica -] 150 mg PO TID 09/22/14 Lubiprostone [Amitiza] 24 mcg PO DAILY PRN 06/05/17 Sennosides [Senna] 8.6 mg PO PRN 06/05/17 Buprenorphine/Naloxone [Suboxone 8Mg/2Mg Sl Film -] 1 each SL Q12H 05/14/18 Levothyroxine [Synthroid -] 125 mcg PO DAILY@0700 #30 tablet 05/17/18 Bacitracin - [Bacitracin Topical Ointment -] 1 applic TP DAILY #1 tube 04/18/19 Clindamycin [Cleocin -] 300 mg PO TID #19 capsule 04/18/19 Duloxetine HCl [Cymbalta -] 30 mg PO DAILY #30 capsule. 04/18/19 Metoclopramide HCl [Reglan -] 5 mg PO TIDAC #84 tablet 04/18/19 Oxymetazoline 0.05% Nasal Soln [Afrin -] 2 spray NS BID PRN #1 spray 04/18/19 Pantoprazole Sodium [Protonix -] 40 mg PO DAILY #30 tablet.ec 04/18/19 Polyethylene Glycol 3350 [Miralax 119 gm Btl -] 17 gm PO DAILY #1 bottle Review of Systems - Review of Systems Constitutional: reports: Loss of Appetite Eyes: reports: No Symptoms HENT: reports: No Symptoms Neck: reports: No Symptoms Cardiovascular: reports: No Symptoms Respiratory: reports: No Symptoms Gastrointestinal: reports: Abdominal Pain, Constipation, Nausea, Vomiting Genitourinary: reports: No Symptoms Breasts: reports: No Symptoms Reported Musculoskeletal: reports: No Symptoms Integumentary: reports: No Symptoms Neurological: reports: No Symptoms Endocrine: reports: No Symptoms Hematology/Lymphatic: reports: No Symptoms Psychiatric: reports: No Symptoms Physical Exam-GI Vital Signs: Vital Signs Temperature 98.7 F 06/20/19 06:28 Pulse Rate 99 H 06/20/19 06:28 Respiratory Rate 18 06/20/19 06:28 Blood Pressure 127/69 06/20/19 06:28 O2 Sat by Pulse Oximetry (%) 99 06/20/19 06:28 Constitutional: Yes: No Distress, Calm Eyes: Yes: Conjunctiva Clear HENT: Yes: Atraumatic Cardiovascular: Yes: Regular Rate and Rhythm Respiratory: Yes: Regular, CTA Bilaterally Gastrointestinal Inspection: Yes: WNL. No: Ascites, Distention, Hernia, Scars, Other ...Auscultate: Yes: Normoactive Bowel Sounds. No: Hyperactive Bowel Sounds, Hypoactive Bowel Sounds, No Bowel Sounds, Other ...Palpate: Yes: Soft, Tenderness, Tenderness, Epigastium. No: Firm/Rigid, Guarding, Hepatomegaly, Mass, Pulsatile Mass, Splenomegaly, Tenderness, Rebound , Other ...Percussion: Yes: Tympanitic. No: Dullness, Fluid Wave, Other Neurological: Yes: Alert, Oriented Psychiatric: Yes: Alert, Oriented Labs: CBC, BMP 06/20/19 05:50 06/20/19 05:50 INR, PTT INR 1.07 (0.83-1.09) 06/19/19 16:10 Imaging - Results Cat Scan: Report Reviewed Problem List - Problems (1) Nausea & vomiting Assessment/Plan: >discontinue Reglan and Tifan due to prolong QT interval >Zofran prn for nausea and vomiting >NPO >IV hydration >Lipase 28 >CTAP shows slightly distended gallbladder without evidence of calculi and acute cholecystitis Code(s): R11.2 - NAUSEA WITH VOMITING, UNSPECIFIED (2) Abdominal pain Assessment/Plan: >CTAP done in ER shows slightly distended gallbladder without evidence of calculi and acute cholecystitis >Pantoprazole >Simethicone TID Code(s): R10.9 - UNSPECIFIED ABDOMINAL PAIN Qualifiers: Abdominal location: epigastric Qualified Code(s): R10.13 - Epigastric pain (3) Constipation Assessment/Plan: >CTAP shows marked fecal retention >Cont with Miralax daily >will order Fleet Enema x 2 q4h and citroma x 1 dose HS Code(s): K59.00 - CONSTIPATION, UNSPECIFIED
[2019-06-20] MEDS: HEPARIN NA (PORCINE) 5,000 UNITS/ML 1ML VIAL SQ SCH ×2 (09:13→22:08)
[2019-06-20] MEDS: DULoxetine HCL 30 MG CAPSULE.DR PO SCH (09:13)
[2019-06-20] MEDS: PANTOPRAZOLE 40 MG TABLET PO SCH (09:13)
[2019-06-20] MEDS ORDERED: ONDANSETRON 4 MG/2 ML VIAL IVPB PRN (09:27)
--- NOTE | 2019-06-20 09:52 | EKG ---
Test Reason : Blood Pressure : / mmHG Vent. Rate : 094 BPM Atrial Rate : 094 BPM P-R Int : 158 ms QRS Dur : 080 ms QT Int : 388 ms P-R-T Axes : 075 071 060 degrees QTc Int : 485 ms NORMAL SINUS RHYTHM PROLONGED QT ABNORMAL ECG WHEN COMPARED WITH ECG OF 12-APR-2019 19:03, NONSPECIFIC T WAVE ABNORMALITY NO LONGER EVIDENT IN LATERAL LEADS Confirmed by CHIO DUPONT, BARBY ([id number]) on 06/20/2019 9:51:53 AM Referred By: Confirmed By:BARBY BARROSO MD
--- NOTE | 2019-06-20 10:59 | PN ---
Progress Note, Physician Chief Complaint: Nausea/Vomiting Diabetic Gastroparesis History of Present Illness: Previous notes and events reviewed awake and alert NAD complain of dull epigastric pain bilious vomiting - Current Medication List Current Medications: Active Medications Acetaminophen (Ofirmev Injection -) 1,000 mg IVPB Q6H PRN PRN Reason: PAIN LEVEL 1-5 Stop: 06/20/19 23:59 Buprenorphine/Naloxone (Suboxone 8 Mg/2 Mg Film Packet) 1 each SL BID [facility] Last Admin: 06/20/19 10:16 Dose: 1 each Duloxetine HCl (Cymbalta -) 30 mg PO DAILY [facility] Last Admin: 06/20/19 09:13 Dose: 30 mg Heparin Sodium (Porcine) (Heparin -) 5,000 unit SQ BID [facility] Last Admin: 06/20/19 09:13 Dose: 5,000 unit Levothyroxine Sodium (Synthroid -) 125 mcg PO DAILY@0700 [facility] Last Admin: 06/20/19 07:06 Dose: Not Given Morphine Sulfate (Morphine Sulfate) 1 mg IVPUSH BID PRN PRN Reason: PAIN LEVEL 6-10 Stop: 06/21/19 23:59 Non-Formulary Medication (Insulin Pump Syringe, 3 Ml [Paradigm]) 1 each MC ASDIR [facility] Non-Formulary Medication (Lubiprostone [Amitiza]) 24 mcg PO DAILY PRN PRN Reason: CONSTIPATION Ondansetron HCl (Zofran Injection) 4 mg IVPB Q8H PRN PRN Reason: NAUSEA Pantoprazole Sodium (Protonix -) 40 mg PO DAILY [facility] Last Admin: 06/20/19 09:13 Dose: 40 mg Polyethylene Glycol (Miralax (For Daily Use) -) 17 gm PO DAILY [facility] Pregabalin (Lyrica -) 150 mg PO TID [facility] Last Admin: 06/20/19 07:05 Dose: Not Given Simethicone (Mylicon -) 80 mg PO QID PRN PRN Reason: GAS - Objective Vital Signs: Vital Signs Temperature 98.9 F 06/20/19 09:33 Pulse Rate 97 H 06/20/19 09:33 Respiratory Rate 18 06/20/19 09:33 Blood Pressure 153/79 06/20/19 09:33 O2 Sat by Pulse Oximetry (%) 98 06/20/19 09:00 Constitutional: Yes: No Distress, Calm Eyes: Yes: Conjunctiva Clear HENT: Yes: Atraumatic Cardiovascular: Yes: Regular Rate and Rhythm Respiratory: Yes: Regular, CTA Bilaterally Gastrointestinal: Yes: Normal Bowel Sounds, Soft Musculoskeletal: Yes: WNL Extremities: Yes: WNL Edema: No Neurological: Yes: Alert, Oriented Psychiatric: Yes: Alert, Oriented Labs: CBC, BMP 06/20/19 05:50 06/20/19 05:50 INR, PTT INR 1.07 (0.83-1.09) 06/19/19 16:10 Problem List - Problems (1) Abdominal pain Assessment/Plan: -CTAP done in ER shows slightly distended gallbladder without evidence of calculi and acute cholecystitis -GI on board -NPO -IV hydration -Simethicone -Lipase 28 -Pantoprazole Code(s): R10.9 - UNSPECIFIED ABDOMINAL PAIN Qualifiers: Abdominal location: epigastric Qualified Code(s): R10.13 - Epigastric pain (2) Elevated LFTs Assessment/Plan: -Initial LFTs AST 52, ALT 70 -rpeeat LFTs wnl Code(s): R94.5 - ABNORMAL RESULTS OF LIVER FUNCTION STUDIES (3) IDDM (insulin dependent diabetes mellitus) Assessment/Plan: -Endocrinology Consult -Humalog insulin pump -HgA1c -BGM ACHS Code(s): E11.9 - TYPE 2 DIABETES MELLITUS WITHOUT COMPLICATIONS; Z79.4 - SKILLED NURSING (CURRENT) USE OF INSULIN (4) Nausea & vomiting Assessment/Plan: -Zofran prn for nausea -avoid reglan and tigan due to prolong QT interval -IV hydration -NPO -pantoprazole Code(s): R11.2 - NAUSEA WITH VOMITING, UNSPECIFIED (5) Constipation Assessment/Plan: -GI on board -Miralax daily -Fleet enema x 2 q4h apart -Citroma x 1 dose HS Code(s): K59.00 - CONSTIPATION, UNSPECIFIED (6) Hypothyroidism Assessment/Plan: -Levothyroxine Code(s): E03.9 - HYPOTHYROIDISM, UNSPECIFIED Assessment/Plan see problem list dvt ppx
[2019-06-20] MEDS ORDERED: SODIUM PHOSPHATE/NA BIPHOS 133 ML ENEMA PR ONE ×2 (16:05→20:10)
[2019-06-20] MEDS: POLYETHYLENE GLYCOL 3350 119 GM BTL PO SCH (18:15)
[2019-06-20 18:40] VITALS: BMI 22.8
[2019-06-20] MEDS: SIMETHICONE 80 MG TAB.CHEW (FP) PO PRN (22:09)
[2019-06-20] MEDS: MORPHINE SULFATE 2 MG/ML VIAL IVPUSH PRN (22:13)
--- NOTE | 2019-06-20 23:21 | CONSULT ---
Consult Consult Specialty:: Endocrine Referred by:: Hemanth HUNT Reason for Consultation:: DMT1/diabetic gastroparesis - History of Present Illness Chief Complaint: nausea and vomiting unable to keep anything down History of Present Illness: 44 yo M PMH [id number]([employer] Insulin Pump), diabetic gastroparesis, diabetic retinopathy, peripheral neuropathy, nephrolithiasis, chronic low back on suboxan ,history of detention opiod use for pain, Neurogenic bladder who p/w epigastria abdominal pain. Patient reports one day of worsening epigastria, burning abdominal pain, with involvement of left chest and mid/lower back. he notes having bilious, non-bloody emesis, aggravated by PO intake, he has had similar episodes in past requiring iv fluids and antiemetic.currently using low dose insulin humalog in pump setting basal rates mostly runing 0.65units per hr as appetite has been poor . - Past Medical History BACK HAND: Yes: Peripheral Neuropathy Cardio/Vascular: Yes: HTN, Hyperlipdemia Gastrointestinal: Yes: Gastritis, Other (gastroparesis) Renal/: Yes: Renal Calculi Psych: Yes: Depression Musculoskeletal: Yes: Chronic low back pain Endocrine: Yes: Diabetes Mellitus - Past Surgical History Past Surgical History: Yes: Appendectomy, Joint Replacement (Trigger finger release, arthroscopy for bone spur L shoulder) - Alcohol/Substance Use Hx Alcohol Use: No History of Substance Use: reports: Marijuana Date of Last Use: 06/19/19 (daily use ) - Smoking History Smoking history: Never smoked Have you smoked in the past 12 months: No Aproximately how many cigarettes per day: 0 If you are a former smoker, when did you quit?: as a teenager - Social History Usual Living Arrangement: Alone ADL: Independent Occupation: not employed History of Recent Travel: No Home Medications - Allergies Allergies/Adverse Reactions: Allergies Allergy/AdvReac Type Severity Reaction Status Date / Time quetiapine fumarate Allergy Unknown hypotension Verified 06/19/19 14:57 [From Seroquel] - Home Medications Home Medications: Ambulatory Orders Insulin Pump Syringe, 3 ml [Paradigm] 1 each [facility] ASDIR 10/04/13 Pregabalin [Lyrica -] 150 mg PO TID 09/22/14 Lubiprostone [Amitiza] 24 mcg PO DAILY PRN 06/05/17 Sennosides [Senna] 8.6 mg PO PRN 06/05/17 Buprenorphine/Naloxone [Suboxone 8Mg/2Mg Sl Film -] 1 each SL Q12H 05/14/18 Levothyroxine [Synthroid -] 125 mcg PO DAILY@0700 #30 tablet 05/17/18 Bacitracin - [Bacitracin Topical Ointment -] 1 applic TP DAILY #1 tube 04/18/19 Clindamycin [Cleocin -] 300 mg PO TID #19 capsule 04/18/19 Duloxetine HCl [Cymbalta -] 30 mg PO DAILY #30 capsule.dr 04/18/19 Metoclopramide HCl [Reglan -] 5 mg PO TIDAC #84 tablet 04/18/19 Oxymetazoline 0.05% Nasal Soln [Afrin -] 2 spray NS BID PRN #1 spray 04/18/19 Pantoprazole Sodium [Protonix -] 40 mg PO DAILY #30 tablet.ec 04/18/19 Polyethylene Glycol 3350 [Miralax 119 gm Btl -] 17 gm PO DAILY #1 bottle Review of Systems - Review of Systems Constitutional: reports: Lethargy, Loss of Appetite, Weakness Eyes: reports: Blurred Vision HENT: reports: Throat Pain Neck: reports: No Symptoms Cardiovascular: reports: Shortness of Breath Respiratory: reports: Exercise Intolerance, SOB on Exertion Gastrointestinal: reports: Bloating, Constipation, Nausea, Vomiting Genitourinary: reports: No Symptoms Breasts: reports: No Symptoms Reported Musculoskeletal: reports: Extremity Pain, Muscle Pain, Muscle Cramps Integumentary: reports: No Symptoms Neurological: reports: Numbness, Weakness Physical Exam Vital Signs: Vital Signs Temperature 99.4 F 06/20/19 18:41 Pulse Rate 114 H 06/20/19 18:41 Respiratory Rate 19 06/20/19 18:41 Blood Pressure 144/69 06/20/19 18:41 O2 Sat by Pulse Oximetry (%) 98 06/20/19 10:03 Constitutional: Yes: Calm Eyes: Yes: EOM Intact HENT: Yes: Normocephalic Neck: Yes: Trachea Midline Cardiovascular: Yes: Regular Rate and Rhythm Respiratory: Yes: CTA Bilaterally Gastrointestinal: Yes: Hypoactive Bowel Sounds, Tenderness, Epigastrium ...Rectal Exam: Yes: Deferred Renal/: Yes: WNL Breast(s): Yes: WNL Musculoskeletal: Yes: Joint Stiffness, Muscle Weakness Extremities: Yes: Delayed Capillary Refill Edema: No Peripheral Pulses WNL: Yes Neurological: Yes: Alert, Oriented Labs: CBC, BMP 06/20/19 05:50 06/20/19 05:50 Problem List - Problems (1) Uncontrolled type 1 diabetes mellitus with gastroparesis Problems reviewed: Yes Code(s): E10.43 - TYPE 1 DIABETES W DIABETIC AUTONOMIC (POLY)NEUROPATHY; K31.84 - GASTROPARESIS; E10.65 - TYPE 1 DIABETES MELLITUS WITH HYPERGLYCEMIA (2) Abdominal pain Code(s): R10.9 - UNSPECIFIED ABDOMINAL PAIN Qualifiers: Abdominal location: epigastric Qualified Code(s): R10.13 - Epigastric pain (3) Chest pain due to gastrointestinal reflux disease Code(s): R07.9 - CHEST PAIN, UNSPECIFIED; K21.9 - GASTRO-ESOPHAGEAL REFLUX DISEASE WITHOUT ESOPHAGITIS (4) Elevated LFTs Code(s): R94.5 - ABNORMAL RESULTS OF LIVER FUNCTION STUDIES (5) Gastroparesis Code(s): K31.84 - GASTROPARESIS (6) Hypophosphatemia Code(s): E83.39 - OTHER DISORDERS OF PHOSPHORUS METABOLISM (7) IDDM (insulin dependent diabetes mellitus) Code(s): E11.9 - TYPE 2 DIABETES MELLITUS WITHOUT COMPLICATIONS; Z79.4 - [facility] (CURRENT) USE OF INSULIN (8) Intractable abdominal pain Code(s): R10.9 - UNSPECIFIED ABDOMINAL PAIN (9) Nausea & vomiting Code(s): R11.2 - NAUSEA WITH VOMITING, UNSPECIFIED Assessment/Plan Current Active Problems Abdominal pain (Acute) Chest pain due to gastrointestinal reflux disease (Acute) Elevated LFTs (Acute) Gastroparesis (Acute) Hypophosphatemia (Acute) IDDM (insulin dependent diabetes mellitus) (Acute) Intractable abdominal pain (Acute) Nausea & vomiting (Acute) Nausea and vomiting (Acute) Persistent vomiting (Acute) Abnormal Lab Results 06/19/19 06/20/19 23:10 05:50 Random Glucose 292 H Ur Specific [place] 1.039 H Urine Glucose (UA) 3+ H Urine Ketones 2+ H Laboratory Results - last 24 hr 06/19/19 06/20/19 06/20/19 23:10 05:50 05:50 WBC 7.5 RBC 4.15 Hgb 12.6 Hct 36.9 MCV 88.9 MCH 30.3 MCHC 34.0 RDW 13.8 Plt Count 186 MPV 10.0 Sodium 136 Potassium 4.3 Chloride 102 Carbon Dioxide 24 Anion Gap 10 BUN 16.0 Creatinine 1.2 Est GFR (CKD-EPI)AfAm 85.92 Est GFR (CKD-EPI)NonAf 74.14 POC Glucometer Random Glucose 292 H Calcium 9.0 Total Bilirubin 0.8 AST 28 ALT 52 Alkaline Phosphatase 88 Total Protein 7.1 Albumin 3.8 TSH 1.75 D Urine Color Yellow Urine Appearance Clear Urine pH 6.5 Ur Specific [place] 1.039 H Urine Protein Negative Urine Glucose (UA) 3+ H Urine Ketones 2+ H Urine Blood Negative Urine Nitrite Negative Urine Bilirubin Negative Urine Urobilinogen 0.2 Ur Leukocyte Esterase Negative 06/20/19 06/20/19 06:51 22:07 WBC RBC Hgb Hct MCV MCH MCHC RDW Plt Count MPV Sodium Potassium Chloride Carbon Dioxide Anion Gap BUN Creatinine Est GFR (CKD-EPI)AfAm Est GFR (CKD-EPI)NonAf POC Glucometer 291 303 Random Glucose Calcium Total Bilirubin AST ALT Alkaline Phosphatase Total Protein Albumin TSH Urine Color Urine Appearance Urine pH Ur Specific [place] Urine Protein Urine Glucose (UA) Urine Ketones Urine Blood Urine Nitrite Urine Bilirubin Urine Urobilinogen Ur Leukocyte Esterase Laboratory Tests 06/20/19 06/20/19 06/20/19 05:50 06:51 22:07 Sodium 136 Potassium 4.3 Chloride 102 Carbon Dioxide 24 Anion Gap 10 BUN 16.0 Creatinine 1.2 Est GFR (CKD-EPI)AfAm 85.92 POC Glucometer 291 303 TSH 1.75 D plan: bgm qachs may use insulin pump as programed basal rates .65 unit per hr patient capable of using pump compliant and aware bolus carb counting ck hba1c gi consulted advance diet as gi symptoms improve
[2019-06-21] MEDS: PREGABALIN 75 MG CAPSULE PO SCH ×3 (05:29→21:14)
[2019-06-21] MEDS: LEVOTHYROXINE NA 125 MCG TABLET (FP) PO SCH (06:28)
[2019-06-21 07:31] LABS: HEMATOCRIT 37.2 % (35.4-49); HEMOGLOBIN 12.5 GM/dL (11.7-16.9); MCH 29.7 pg (25.7-33.7); MCHC 33.7 g/dl (32.0-35.9); MEAN PLT VOLUME 9.9 fl (7.5-11.1); PLATELET COUNT 181 K/MM3 (134-434); RBC 4.22 M/mm3 (4.00-5.60); RDW 13.7 % (11.9-15.9); WHITE BLOOD COUNT 4.6 K/mm3 (4.0-10.0)
[2019-06-21 08:04] LABS: ALBUMIN 3.9 g/dl (3.4-5.0); BILIRUBIN,TOTAL 0.7 mg/dL (0.2-1); BLOOD UREA NITROGEN 14.2 mg/dL (7-18); CALCIUM 9.2 mg/dL (8.5-10.1); CREATININE 1.1 mg/dL (0.55-1.3); POTASSIUM 3.5 mmol/L (3.5-5.1); TOT PROT 7.1 g/dl (6.4-8.2)
--- NOTE | 2019-06-21 08:09 | PN ---
Progress Note, Physician - Current Medication List Current Medications: Active Medications Buprenorphine/Naloxone (Suboxone 8 Mg/2 Mg Film Packet) 1 each SL BID [facility] Last Admin: 06/20/19 22:09 Dose: 1 each Duloxetine HCl (Cymbalta -) 30 mg PO DAILY [facility] Last Admin: 06/20/19 09:13 Dose: 30 mg Heparin Sodium (Porcine) (Heparin -) 5,000 unit SQ BID [facility] Last Admin: 06/20/19 22:08 Dose: 5,000 unit Levothyroxine Sodium (Synthroid -) 125 mcg PO DAILY@0700 [facility] Last Admin: 06/21/19 06:28 Dose: 125 mcg Morphine Sulfate (Morphine Sulfate) 1 mg IVPUSH BID PRN PRN Reason: PAIN LEVEL 6-10 Stop: 06/21/19 23:59 Last Admin: 06/20/19 22:13 Dose: 1 mg Non-Formulary Medication (Insulin Pump Syringe, 3 Ml [Paradigm]) 1 each ASDIR [facility] Non-Formulary Medication (Lubiprostone [Amitiza]) 24 mcg PO DAILY PRN PRN Reason: CONSTIPATION Ondansetron HCl (Zofran Injection) 4 mg IVPB Q8H PRN PRN Reason: NAUSEA Pantoprazole Sodium (Protonix -) 40 mg PO DAILY [facility] Last Admin: 06/20/19 09:13 Dose: 40 mg Polyethylene Glycol (Miralax (For Daily Use) -) 17 gm PO DAILY [facility] Last Admin: 06/20/19 18:15 Dose: Not Given Pregabalin (Lyrica -) 150 mg PO TID [facility] Last Admin: 06/21/19 05:29 Dose: 150 mg Simethicone (Mylicon -) 80 mg PO QID PRN PRN Reason: GAS Last Admin: 06/20/19 22:09 Dose: 80 mg - Objective Vital Signs: Vital Signs Temperature 98.2 F 06/21/19 06:00 Pulse Rate 95 H 06/21/19 06:00 Respiratory Rate 18 06/21/19 06:00 Blood Pressure 142/79 06/21/19 06:00 O2 Sat by Pulse Oximetry (%) 98 06/20/19 21:00 Labs: CBC, BMP 06/21/19 06:40 06/21/19 06:40 INR, PTT INR 1.07 (0.83-1.09) 06/19/19 16:10 Assessment/Plan - Problems (1) Abdominal pain Assessment/Plan: -CTAP done in ER shows slightly distended gallbladder without evidence of calculi and acute cholecystitis -GI on board -NPO --diabetic diet -IV hydration -Simethicone -Lipase 28 -Pantoprazole Code(s): R10.9 - UNSPECIFIED ABDOMINAL PAIN Qualifiers: Abdominal location: epigastric Qualified Code(s): R10.13 - Epigastric pain (2) Elevated LFTs Assessment/Plan: -Initial LFTs AST 52, ALT 70-improved -rpeeat LFTs wnl Code(s): R94.5 - ABNORMAL RESULTS OF LIVER FUNCTION STUDIES (3) IDDM (insulin dependent diabetes mellitus) Assessment/Plan: -Endocrinology Consult -Humalog insulin pump -HgA1c -BGM ACHS Code(s): E11.9 - TYPE 2 DIABETES MELLITUS WITHOUT COMPLICATIONS; Z79.4 - [facility] (CURRENT) USE OF INSULIN (4) Nausea & vomiting Assessment/Plan: -Zofran prn for nausea -avoid reglan and tigan due to prolong QT interval -IV hydration -pantoprazole Code(s): R11.2 - NAUSEA WITH VOMITING, UNSPECIFIED (5) Constipation Assessment/Plan: -GI on board -Miralax daily -Fleet enema x 2 q4h apart -Citroma x 1 dose HS Code(s): K59.00 - CONSTIPATION, UNSPECIFIED (6) Hypothyroidism Assessment/Plan: -Levothyroxine Code(s): E03.9 - HYPOTHYROIDISM, UNSPECIFIED
--- NOTE | 2019-06-21 09:03 | PN.GI ---
GI Progress Note Subjective: Patient states no further episodes of vomiting. Continues with epigastric pain radiating to back. Received enema x 2 yesterday with good effect, states having BM x 4. Denies rectal bleeding or blood in the stool. - Objective Vital Signs: Vital Signs Temperature 98.2 F 06/21/19 06:00 Pulse Rate 95 H 06/21/19 06:00 Respiratory Rate 18 06/21/19 06:00 Blood Pressure 142/79 06/21/19 06:00 O2 Sat by Pulse Oximetry (%) 98 06/20/19 21:00 Constitutional: No Distress, Calm Eyes: Yes: Conjunctiva Clear HENT: Yes: Atraumatic Cardiovascular: Yes: Regular Rate and Rhythm Respiratory: Yes: Regular, CTA Bilaterally Gastrointestinal Inspection: Yes: WNL. No: Ascites, Distention, Hernia, Scars, Other ...Auscultate: Yes: Normoactive Bowel Sounds. No: Hyperactive Bowel Sounds, Hypoactive Bowel Sounds, No Bowel Sounds, Other ...Palpate: Yes: Soft, Tenderness (diffuse), Tenderness, Epigastium. No: Firm/ Rigid, Guarding, Hepatomegaly, Mass, Pulsatile Mass, Splenomegaly, Tenderness, Rebound, Other ...Percussion: Yes: Tympanitic. No: Dullness, Fluid Wave, Other Neurological: Yes: Alert, Oriented Psychiatric: Yes: Alert, Oriented Labs: CBC, BMP 06/21/19 06:40 06/21/19 06:40 INR, PTT INR 1.07 (0.83-1.09) 06/19/19 16:10 Active Medications Buprenorphine/Naloxone (Suboxone 8 Mg/2 Mg Film Packet) 1 each SL BID [facility] Last Admin: 06/20/19 22:09 Dose: 1 each Duloxetine HCl (Cymbalta -) 30 mg PO DAILY [facility] Last Admin: 06/20/19 09:13 Dose: 30 mg Heparin Sodium (Porcine) (Heparin -) 5,000 unit SQ BID [facility] Last Admin: 06/20/19 22:08 Dose: 5,000 unit Levothyroxine Sodium (Synthroid -) 125 mcg PO DAILY@0700 [facility] Last Admin: 06/21/19 06:28 Dose: 125 mcg Morphine Sulfate (Morphine Sulfate) 1 mg IVPUSH BID PRN PRN Reason: PAIN LEVEL 6-10 Stop: 06/21/19 23:59 Last Admin: 06/20/19 22:13 Dose: 1 mg Non-Formulary Medication (Insulin Pump Syringe, 3 Ml [Paradigm]) 1 each MC ASDIR [facility] Non-Formulary Medication (Lubiprostone [Amitiza]) 24 mcg PO DAILY PRN PRN Reason: CONSTIPATION Ondansetron HCl (Zofran Injection) 4 mg IVPB Q8H PRN PRN Reason: NAUSEA Pantoprazole Sodium (Protonix -) 40 mg PO DAILY [facility] Last Admin: 06/20/19 09:13 Dose: 40 mg Polyethylene Glycol (Miralax (For Daily Use) -) 17 gm PO DAILY [facility] Last Admin: 06/20/19 18:15 Dose: Not Given Pregabalin (Lyrica -) 150 mg PO TID [facility] Last Admin: 06/21/19 05:29 Dose: 150 mg Simethicone (Mylicon -) 80 mg PO QID PRN PRN Reason: GAS Last Admin: 06/20/19 22:09 Dose: 80 mg Problem List - Problems (1) Nausea & vomiting Assessment/Plan: >Zofran prn for nausea and vomiting >clear liquid diet >Lipase 28 >CTAP shows slightly distended gallbladder without evidence of calculi and acute cholecystitis Code(s): R11.2 - NAUSEA WITH VOMITING, UNSPECIFIED (2) Abdominal pain Assessment/Plan: >CTAP done in ER shows slightly distended gallbladder without evidence of calculi and acute cholecystitis >Pantoprazole >Simethicone TID >patient is refusing EGD Code(s): R10.9 - UNSPECIFIED ABDOMINAL PAIN Qualifiers: Abdominal location: epigastric Qualified Code(s): R10.13 - Epigastric pain (3) Constipation Assessment/Plan: >CTAP shows marked fecal retention >Cont with Miralax daily >Fleet Enema x 2 with good effect >will order Dulcolax 3 tabs x 1 dose Code(s): K59.00 - CONSTIPATION, UNSPECIFIED
[2019-06-21] MEDS ORDERED: BISACODYL 5 MG TABLET.DR (FP) PO ONE ×2 (09:23→17:15)
[2019-06-21] MEDS: BUPRENORPHINE/NALOXONE 8 MG/2 MG FILM PACKET SL SCH ×2 (10:00→21:14)
[2019-06-21] MEDS: POLYETHYLENE GLYCOL 3350 119 GM BTL PO SCH (10:01)
[2019-06-21] MEDS: DULoxetine HCL 30 MG CAPSULE.DR PO SCH (10:01)
[2019-06-21] MEDS: SIMETHICONE 80 MG TAB.CHEW (FP) PO PRN (10:01)
[2019-06-21] MEDS: HEPARIN NA (PORCINE) 5,000 UNITS/ML 1ML VIAL SQ SCH ×2 (10:01→21:14)
[2019-06-21] MEDS: PANTOPRAZOLE 40 MG TABLET PO SCH (10:01)
[2019-06-21] MEDS: MORPHINE SULFATE 2 MG/ML VIAL IVPUSH PRN (10:04)
[2019-06-22] MEDS ORDERED: ACETAMINOPHEN 325 MG TABLET (FP) PO ONE (01:10)
[2019-06-22] MEDS: LEVOTHYROXINE NA 125 MCG TABLET (FP) PO SCH (06:14)
[2019-06-22] MEDS: PREGABALIN 75 MG CAPSULE PO SCH (06:14)
[2019-06-22] MEDS: BUPRENORPHINE/NALOXONE 8 MG/2 MG FILM PACKET SL SCH (09:44)
[2019-06-22] MEDS: PANTOPRAZOLE 40 MG TABLET PO SCH (09:44)
[2019-06-22] MEDS: HEPARIN NA (PORCINE) 5,000 UNITS/ML 1ML VIAL SQ SCH (09:45)
[2019-06-22] MEDS: SIMETHICONE 80 MG TAB.CHEW (FP) PO PRN (09:45)
[2019-06-22] MEDS: DULoxetine HCL 30 MG CAPSULE.DR PO SCH (09:45)
[2019-06-22] MEDS: POLYETHYLENE GLYCOL 3350 119 GM BTL PO SCH (09:47)
--- NOTE | 2019-06-22 10:03 | DS ---
Physical Examination Vital Signs: Vital Signs Temperature 98.3 F 06/22/19 06:22 Pulse Rate 86 06/22/19 06:22 Respiratory Rate 20 06/22/19 06:22 Blood Pressure 132/74 06/22/19 06:22 O2 Sat by Pulse Oximetry (%) 98 06/21/19 21:00 Cardiovascular: Yes: S1, S2 Respiratory: Yes: Regular, CTA Bilaterally Gastrointestinal: Yes: Normal Bowel Sounds, Soft. No: Tenderness Labs: CBC, BMP 06/21/19 06:40 06/21/19 06:40 Discharge Summary Problems reviewed: Yes Reason For Visit: GASTROPARESIS, INTRACTABLE ABDOMINAL PAIN, Current Active Problems Abdominal pain (Acute) Chest pain due to gastrointestinal reflux disease (Acute) Elevated LFTs (Acute) Gastroparesis (Acute) Hypophosphatemia (Acute) IDDM (insulin dependent diabetes mellitus) (Acute) Intractable abdominal pain (Acute) Nausea & vomiting (Acute) Nausea and vomiting (Acute) Persistent vomiting (Acute) Uncontrolled type 1 diabetes mellitus with gastroparesis (Acute) Hospital Course: - Problems (1) Abdominal pain Assessment/Plan: -CTAP done in ER shows slightly distended gallbladder without evidence of calculi and acute cholecystitis -GI on board -NPO --diabetic diet -IV hydration -Simethicone -Lipase 28 -Pantoprazole Code(s): R10.9 - UNSPECIFIED ABDOMINAL PAIN Qualifiers: Abdominal location: epigastric Qualified Code(s): R10.13 - Epigastric pain (2) Elevated LFTs Assessment/Plan: -Initial LFTs AST 52, ALT 70-improved -rpeeat LFTs wnl Code(s): R94.5 - ABNORMAL RESULTS OF LIVER FUNCTION STUDIES (3) IDDM (insulin dependent diabetes mellitus) Assessment/Plan: -Endocrinology Consult -Humalog insulin pump -HgA1c -BGM ACHS Code(s): E11.9 - TYPE 2 DIABETES MELLITUS WITHOUT COMPLICATIONS; Z79.4 - [facility] (CURRENT) USE OF INSULIN (4) Nausea & vomiting Assessment/Plan: -Reoslved -Zofran prn for nausea -avoid reglan and tigan due to prolong QT interval -pantoprazole Code(s): R11.2 - NAUSEA WITH VOMITING, UNSPECIFIED (5) Constipation Assessment/Plan: -had bm -GI on board -Miralax daily -Fleet enema x 2 q4h apart -Citroma x 1 dose HS Code(s): K59.00 - CONSTIPATION, UNSPECIFIED (6) Hypothyroidism Assessment/Plan: -Levothyroxine Code(s): E03.9 - HYPOTHYROIDISM, UNSPECIFIED dc home Condition: Stable - Instructions Referrals: Augustus Grewal MD [Primary Care Provider] - 2 Weeks Disposition: [facility]NS/HOME HEALTH CARE - Home Medications Comprehensive Discharge Medication List: Ambulatory Orders Insulin Pump Syringe, 3 ml [Paradigm] 1 each [facility] ASDIR 10/04/13 Pregabalin [Lyrica -] 150 mg PO TID 09/22/14 Lubiprostone [Amitiza] 24 mcg PO DAILY PRN 06/05/17 Sennosides [Senna] 8.6 mg PO PRN 06/05/17 Buprenorphine/Naloxone [Suboxone 8Mg/2Mg Sl Film -] 1 each SL Q12H 05/14/18 Levothyroxine [Synthroid -] 125 mcg PO DAILY@0700 #30 tablet 05/17/18 Bacitracin - [Bacitracin Topical Ointment -] 1 applic TP DAILY #1 tube 04/18/19 Duloxetine HCl [Cymbalta -] 30 mg PO DAILY #30 capsule.dr 04/18/19 Pantoprazole Sodium [Protonix -] 40 mg PO DAILY #30 tablet.ec 04/18/19 Polyethylene Glycol 3350 [Miralax 119 gm Btl -] 17 gm PO DAILY #1 bottle Simethicone [Mylicon -] 80 mg PO QID PRN #120 tab.chew 06/22/19
[2019-06-22 12:23] VITALS: BP 154/90; PULSE 106; TEMP 98.5
== END 2019-06-22 13:03 | disposition home health service (06) | DRG 74 ==
LOC: JER 14:29 → JERBED 20:03 → J7W 06-20 18:21
PROVIDERS: ADMIT Internal Medicine; ATTEND Family Medicine
DX: E10.43 Type 1 diabetes mellitus with diabetic autonomic (poly)neuropathy (principal); E10.319 Type 1 diabetes mellitus with unspecified diabetic retinopathy without macular edema; R11.2 Nausea with vomiting, unspecified; R10.9 Unspecified abdominal pain; E10.65 Type 1 diabetes mellitus with hyperglycemia; K59.00 Constipation, unspecified; E10.610 Type 1 diabetes mellitus with diabetic neuropathic arthropathy; R94.5 Abnormal results of liver function studies; Z79.4 Long term (current) use of insulin; K21.9 Gastro-esophageal reflux disease without esophagitis; K31.84 Gastroparesis; E03.9 Hypothyroidism, unspecified; E83.39 Other disorders of phosphorus metabolism; E10.42 Type 1 diabetes mellitus with diabetic polyneuropathy; F32.9 Major depressive disorder, single episode, unspecified
CPT/HCPCS: 36415; 71045-TC-FY; 74177-TC; 80053; 81003; 82010; 82803; 82962; 83036; 83690; 83735; 84100; 84443; 84484; 85025; 85027; 85379; 85610; 85730; 87086; 93005; 93010; 99285-25; J0131; J1644; Q9967

== ENCOUNTER 2019-12-23 14:33 | Emergency (ER) | payer OTHER ==
[2019-12-23 14:43] VITALS: BMI 23.6
--- NOTE | 2019-12-23 14:46 | PDOC ---
History of Present Illness - General Chief Complaint: Nausea/Vomiting Stated Complaint: nausea/ vomiting Time Seen by Provider: 12/23/19 14:42 Past History - Medical History Allergies/Adverse Reactions: Allergies Allergy/AdvReac Type Severity Reaction Status Date / Time quetiapine fumarate Allergy Unknown hypotension Verified 12/23/19 14:37 [From Seroquel] Home Medications: Ambulatory Orders Insulin Pump Syringe, 3 ml [Paradigm] 1 each MC ASDIR 10/04/13 Pregabalin [Lyrica -] 150 mg PO TID 09/22/14 Lubiprostone [Amitiza] 24 mcg PO DAILY PRN 06/05/17 Sennosides [Senna] 8.6 mg PO PRN 06/05/17 Buprenorphine/Naloxone [Suboxone 8Mg/2Mg Sl Film -] 1 each SL Q12H 05/14/18 Levothyroxine [Synthroid -] 125 mcg PO DAILY@0700 #30 tablet 05/17/18 Bacitracin - [Bacitracin Topical Ointment -] 1 applic TP DAILY #1 tube 04/18/19 Duloxetine HCl [Cymbalta -] 30 mg PO DAILY #30 capsule.dr 04/18/19 Pantoprazole Sodium [Protonix -] 40 mg PO DAILY #30 tablet.ec 04/18/19 Polyethylene Glycol 3350 [Miralax 119 gm Btl -] 17 gm PO DAILY #1 bottle 04/18/19 Simethicone [Mylicon -] 80 mg PO QID PRN #120 tab.chew 06/22/19 Metoclopramide HCl [Reglan -] 10 mg PO TIDAC 30 Days #90 tablet 09/14/19 Anemia: Yes Asthma: No Cancer: No Cardiac Disorders: Yes (HEART MURMUR A CHILD; NO MEDS) CVA: No COPD: No CHF: No Dementia: No Diabetes: Yes (IDDM,insulin pump) GI Disorders: Yes (gastroparesis) Disorders: Yes (indweling urinary catherer, prostatic hypertrophy) HTN: Yes Hypercholesterolemia: Yes Liver Disease: No Psychiatric Problems: Yes Seizures: No Thyroid Disease: Yes - Surgical History Abdominal Surgery: No Appendectomy: Yes (age 27) Cardiac Surgery: No Cholecystectomy: No Lung Surgery: No Neurologic Surgery: No Orthopedic Surgery: Yes (Trigger finger release, arthroscopy for bone spur L shoulder) - Immunization History Immunization Up to Date: Yes - Psycho-Social/Smoking History Smoking Status: No Smoking History: Never smoked Have you smoked in the past 12 months: No Number of Cigarettes Smoked Daily: 0 If you are a former smoker, when did you quit?: as a teenager Cigars Per Day: 0 - Substance Abuse Hx (Audit-C & DAST Scrn) How often the patient has a drink containing alcohol: Never Score: In Men: 4 or > Positive; In Women: 3 or > Positive: 0 Screen Result (Pos requires Nsg. Audit-10AR): Negative In the last yr the pt used illegal drug/Rx for NonMed reason: Yes Score: Yes response is considered Positive: 1 Screen Result (Positive result requires Nsg. DAST-10): Positive *Physical Exam - Vital Signs Last Vital Signs Temp Pulse Resp BP Pulse Ox 98.3 F 78 16 140/73 98 12/23/19 14:39 12/23/19 14:39 12/23/19 14:39 12/23/19 14:39 12/23/19 14:39 ED Treatment Course - LABORATORY CBC & Chemistry Diagram: 12/23/19 15:46 12/23/19 15:46 Medical Decision Making - Medical Decision Making 12/23/19 14:48 HPI: 44yo M hx DMT1, on medtronic insulin pump, hypothyroidism, gastroparesis, severe diabetic neuropathy, chronic pain, and marijuana use for relief of pain, BIBA from home for 1 day of subjective fever, diaphoresis, profuse 7x watery fatty diarrhea, nausea, NBNB emesis x3, epigastric abdominal pain improved after BM worse after vomiting, and lightheadedness. Gradual onset overnight. Tried to eat soup today and felt better after but then threw it up. Endorses intermittent lightheadedness and unknown inner ear problem x years, but never as worse as today. Rhinorrhea today improved with flonase. Endorses chronic intermittent chest pains x5 years, exactly same as last night, believes MSK, multiple cardiac workups negative per pt. Endorses chronic back pain, unchanged. Endorses chronic constipation, aided with medication. Took zofran and reglan this AM but then vomited. No tylenol or motrin today. Denies myalgias, headache, sore throat, ear pain, SOB, cough, blood in stool or vomit, recent antibiotic use, travel, sick contacts, odd or new foods. Self-isolating at home but ordering delivery food. ROS: Constitutional: Positive for diaphoresis, subjective fever, fatigue. Negative for chills. HENT: Positive for rhinorrhea. Negative for sore throat, rhinorrhea, congestion. Eyes: Negative for visual disturbance. Respiratory: Negative for shortness of breath, cough, and wheezing. Cardiovascular: Positive for chest tightness. Negative for chest pain, palpitations, and leg swelling. Gastrointestinal: Positive for abdominal pain, diarrhea, constipation, gastroparesis, nausea, vomiting. Negative for hematemesis, blood in stool. Genitourinary: Negative for dysuria, flank pain, and hematuria. Musculoskeletal: Positive for chronic back pain. Negative for myalgias, and neck pain. Skin: Negative for rash. Neurological: Positive for light-headedness/dizziness. Negative for vertigo, syncope, weakness, numbness and headaches. Psychiatric/Behavioral: Negative for behavioral problems and confusion. PE: Gen: Alert, NAD, uncomfortable-appearing, diaphoretic HEENT: PERRL, EOMI, MMM, NCAT. No conjunctival pallor. Sclera are non-icteric. CV: Regular rate and rhythm. No murmurs, rubs, or gallops. PULM: No resp distress. CTAB, no wheezes, rales, or rhonchi. ABD: soft, +epigastric/periumbilical TTP, ND, no rebound tenderness or guarding, no CVA tenderness. BACK: No TTP of c/t/l-spine. No step-offs or deformities. MSK: No bony deformities. 2+ pulses in all extremities. NEURO: AAOx3. PERRL. No gross CN deficits. Strength and sensation grossly intact throughout. Normal gait. EXTREMITIES: No cyanosis. No clubbing. No edema. PSYCH: Normal mood and thought pattern. SKIN: Warm and diaphoretic. Normal capillary refill. No rashes. No jaundice. MDM: 44yo M hx DMT1, on medtronic insulin pump, hypothyroidism, gastroparesis, severe diabetic neuropathy, chronic pain, and marijuana use for relief of pain, BIBA from home for 1 day of subjective fever, diaphoresis, profuse 7x watery fatty diarrhea, nausea, NBNB emesis x3, epigastric abdominal pain improved after BM worse after vomiting, and lightheadedness. Hemodynamically stable, afebrile, epigastric/periumbilical TTP, diaphoretic. Ddx: presentation c/w viral syndrome, gastroenteritis, gastroparesis. Also consider gastritis, colitis, diverticulitis, infection, metabolic derangement, anemia, ACS/NC, arrhythmia, pancreatitis, cholelithiasis/cystitis, thyroid pathology, PNA, covid. -EKG -CXR -CBC,CMP,Mg,Phos,Cardiac profile,TSH,Lipase -IVF -Pain management, nausea management -Dispo: pending workup and reassessment, likely d/c home EKG reviewed: sinus tachycardia, 104bpm, normal axis, normal intervals, no TWIs, no ST elevations or depressions 12/23/19 16:28 CXR reviewed: No acute pathology 12/23/19 17:24 Labs reviewed. Notable for TSH 6.4, Free T4 1.4 -Call black placed for free T3 -Pt has been taking his thyroid meds but not as prescribed (taking with other meds, not on empty stomach, no f/u with [facility] since last admission) No emesis or diarrhea since arrival in ED. Still some abdominal pain present but improved. -PO challenge -Reglan 12/23/19 17:54 Pt tolerated PO sandwich, crackers, juice, and water. Still mild abdominal pain and TTP present but pt states that's exactly the same as normally feels after vomiting. Discussed further evaluation (eg CTAP) vs discharge and pt wants to go home and feels comfortable/safe to go home. Strict return precautions discussed. Pt safe for d/c. Will discharge home with PCP f/u. Pt understands all discharge instructions and all questions were answered. Discharge - Discharge Information Problems reviewed: Yes Clinical Impression/Diagnosis: Vomiting, Diarrhea, Hypothyroidism Condition: Improved Disposition: HOME - Admission No - Follow up/Referral Referrals: Kody Fitzpatrick MD [Staff Physician] - - Patient Discharge Instructions Patient Printed Discharge Instructions: DI for Vomiting -- Adult, DI for Viral Gastroenteritis -- Adult Additional Instructions: You have been seen in the Emergency Department for your abdominal pain, vomiting, and diarrhea. Your EKG, chest X-ray, and labs, including Troponin (a heart enzyme), show no signs concerning for an emergent condition at this time. Your TSH and T4 labs were high - inform your primary care doctor for further evaluation and management. Your symptoms are most likely due to a viral gastrointestinal infection such as food poisoning. At this time it's most important to stay hydrated. If you experience pain or vomiting, you can take Tylenol and your nausea medications as prescribed, but do not exceed 4g of Tylenol a day. Follow-up with your primary care doctor within 72 hours. Return to the Emergency Department immediately if you experience chest pain, difficulty breathing, worsening abdominal pain, vomiting, fever, passing out, or any other new or worsening symptom. - Post Discharge Activity
[2019-12-23] MEDS ORDERED: SODIUM CHLORIDE 0.9% 500 ML INFUS.BAG IV ONE ×2 (14:51→16:31)
[2019-12-23] MEDS ORDERED: ONDANSETRON 4 MG/2 ML VIAL IVPUSH ONE (15:02)
[2019-12-23] MEDS ORDERED: FAMOTIDINE 20 MG/50 ML IVPB 20 MG/50 ML MG IVPB ONE ×2 (15:02→15:17)
[2019-12-23] MEDS ORDERED: ACETAMINOPHEN 1000 MG/100 ML VIAL (NON FORMULARY) IVPB ONE (15:02)
--- NOTE | 2019-12-23 15:03 | PDOC ---
Attending Attestation - Resident Resident Name: GurpreetRadha - ED Attending Attestation I have performed the following: I have examined & evaluated the patient, The case was reviewed & discussed with the resident, I agree w/resident's findings & plan, Exceptions are as noted - HPI HPI: 12/23/19 15:36 44y M hx of DM (uses insulin pump), hypothyroidism, gastroparesis, diabetic neruopathy, chronic pain, presents with complaint of diarrhea and abdominal pain. Patient was in his usual state of health until last night when he started having episodes of feeling crampy abdominal pain associated with several episodes of watery diarrhea as well as sensation of chills and sweats. He notes that the abdominal pain and sweats usually preceded having a bowel movement, he notes that the bowel movement is brown and watery and sometimes mucousy. He denies any blood or melena. He also denies any fever chills he does endorse feeling nauseous he did vomit once that was nonbilious nonbloody prior to arrival. Patient works at home, no known sick contacts or travel. Social history: Recreation all marijuana denies any EtOH abuse, smoking or other recreational drug use Surgical history: History of appendicitis complicated by perforation of bladder PMD Dr. Arteaga - Physicial Exam PE: 12/23/19 15:55 GENERAL: The patient is awake, alert, and fully oriented, Nontoxic - in no acute distress. HEAD: Normocephalic, atraumatic. EYES: extraocular movements intact, sclera anicteric, conjunctiva clear. ENT: Normal voice, dry mucous membranes. NECK: Normal range of motion, supple LUNGS: Breath sounds equal, clear to auscultation bilaterally. No wheezes, no rhonchi, no rales. HEART: Regular rate and rhythm, normal S1 and S2 without murmur, rub or gallop. ABDOMEN: Soft, mild lower abdominal tenderness, No guarding, no rebound. No CVA tenderness EXTREMITIES: Normal range of motion, no edema. NEUROLOGICAL: No facial assymetry, Normal speech, PSYCH: Normal mood, normal affect. SKIN: Warm, Dry, normal turgor, - Medical Decision Making 12/23/19 15:56 Suspect gastroenteritis, consider differential, enteritis/colitis Will obtain blood work To evaluate metabolic derangements We will treat the patient supportively with fluids, Pepcid, Zofran Will reassess Discharge - Discharge Information Problems reviewed: Yes Clinical Impression/Diagnosis: Vomiting Qualifiers: Vomiting type: unspecified Vomiting Intractability: non-intractable Nausea presence: with nausea Qualified Code(s): R11.2 - Nausea with vomiting, unspecified Diarrhea Qualifiers: Diarrhea type: unspecified type Qualified Code(s): R19.7 - Diarrhea, unspecified Hypothyroidism Qualifiers: Hypothyroidism type: unspecified Qualified Code(s): E03.9 - Hypothyroidism, unspecified Condition: Improved Disposition: HOME - Follow up/Referral Referrals: Kody Fitzpatrick MD [Staff Physician] - - Patient Discharge Instructions Patient Printed Discharge Instructions: DI for Viral Gastroenteritis -- Adult, DI for Vomiting -- Adult Additional Instructions: You have been seen in the Emergency Department for your abdominal pain, vomiting, and diarrhea. Your EKG, chest X-ray, and labs, including Troponin (a heart enzyme), show no signs concerning for an emergent condition at this time. Your TSH and T4 labs were high - inform your primary care doctor for further evaluation and management. Your symptoms are most likely due to a viral gastrointestinal infection such as food poisoning. At this time it's most important to stay hydrated. If you experience pain or vomiting, you can take Tylenol and your nausea medications as prescribed, but do not exceed 4g of Tylenol a day. Follow-up with your primary care doctor within 72 hours. Return to the Emergency Department immediately if you experience chest pain, difficulty breathing, worsening abdominal pain, vomiting, fever, passing out, or any other new or worsening symptom. - Post Discharge Activity
[2019-12-23] MEDS ORDERED: ACETAMINOPHEN INJECTION 100 ML IVPB ONE (15:17)
[2019-12-23 15:55] LABS: BASO % 0.8 % (0-2.0); EOS % 0.8 % (0-4.5); HEMATOCRIT 35.8 % (35.4-49); HEMOGLOBIN 12.1 GM/dL (11.7-16.9); LYMPH % 12.7 % (8-40); MCH 29.9 pg (25.7-33.7); MCHC 33.7 g/dl (32.0-35.9); MEAN CELL VOLUME 88.8 fl (80-96); MEAN PLT VOLUME 10.2 fl (7.5-11.1); MONO % 8.3 % (3.8-10.2); NEUT % 77.4 % (42.8-82.8); PLATELET COUNT 145 K/MM3 (134-434); RBC 4.03 M/mm3 (4.00-5.60); RDW 14.4 % (11.9-15.9); WHITE BLOOD COUNT 4.3 K/mm3 (4.0-10.0)
[2019-12-23] MEDS ORDERED: METOCLOPRAMIDE HCL INJECTION 10 MG/2 ML VIAL IVPUSH ONE (16:32)
[2019-12-23 16:36] LABS: ALBUMIN 3.7 g/dl (3.4-5.0); ALK PHOS 123 U/L (45-117); BILIRUBIN,TOTAL 0.4 mg/dL (0.2-1); BLOOD UREA NITROGEN 18.9 mg/dL (7-18); CALCIUM 9.3 mg/dL (8.5-10.1); CHLORIDE 105 mmol/L (98-107); GLUCOSE,RANDOM 159 mg/dL (74-106); LIPASE 33 U/L (73-393); PHOSPHOROUS 2.9 mg/dL (2.5-4.9)
[2019-12-23 16:37] LABS: ANION GAP 10 MMOL/L (8-16); CO2 28 mmol/L (21-32); CREATININE 1.1 mg/dL (0.55-1.3); MAGNESIUM 1.9 mg/dL (1.8-2.4); SGOT/AST 22 U/L (15-37); SGPT/ALT 54 U/L (13-61); SODIUM 143 mmol/L (136-145)
[2019-12-23] MEDS ORDERED: METOCLOPRAMIDE HCL INJECTION 10 MG/2 ML VIAL ONE (17:13)
[2019-12-23 18:49] VITALS: BP 130/81; PULSE 87; TEMP 98.7
--- NOTE | 2019-12-24 09:11 | EKG ---
Test Reason : Blood Pressure : / mmHG Vent. Rate : 104 BPM Atrial Rate : 104 BPM P-R Int : 148 ms QRS Dur : 088 ms QT Int : 348 ms P-R-T Axes : 073 076 072 degrees QTc Int : 457 ms SINUS TACHYCARDIA OTHERWISE NORMAL ECG WHEN COMPARED WITH ECG OF 12-SEP-2019 09:43, NO SIGNIFICANT CHANGE WAS FOUND Confirmed by Reinaldo Stallworth ([id number]) on 12/24/2019 9:11:01 AM Referred By: Confirmed By:Reinaldo Stallworth
== END 2019-12-23 18:40 | disposition home or self-care (01) ==
LOC: JER 14:33
PROC: 3E033GC Introduction of Other Therapeutic Substance into Peripheral Vein, Percutaneous Approach (ICD-10-PCS; principal; 2019-12-23)
DX: R19.7 Diarrhea, unspecified (principal); R11.10 Vomiting, unspecified; E03.9 Hypothyroidism, unspecified
CPT/HCPCS: 36415; 71045-TC-FY; 80053; 82550; 82962; 83690; 83735; 84100; 84439; 84443; 84481; 84484; 85025; 93005; 93010; 99285-25; J0131